=== PATIENT | female | born 1955 | race Caucasian/White ===

== ENCOUNTER 2017-04-07 05:31 | Emergency (ER) | payer OTHER ==
[~2017-04-07] VITALS: Ht 160 cm; Wt 68.0 kg
[~2017-04-07 05:31] MED LIST: ANTIDEPRESSANTS; ANXIETY MEDS; AUGMENTIN 875875 MG PO; CHLORDIAZEPOXID10 MG PO; NOHOMEMEDICATIONS
[2017-04-07 05:58] LABS: HEMATOCRIT 40.2 % (37.0-47.0); HEMOGLOBIN 14.1 gm/dL (12.0-15.0); MANUAL DIFF YES; MCH 33.8 pg (26.0-34.0); MCV 96.4 fL (80.0-100.0); PLATELET COUNT 123 thou/uL (150-400); RBC 4.17 mil/uL (4.20-5.00); RDW 18.4 % (10.5-14.5)
[2017-04-07 06:03] LABS: ANION GAP 14 mmol/L (7-16); BUN 15 mg/dL (7-18); CALCIUM 8.9 mg/dL (8.5-10.1); CHLORIDE 100 mmol/L (98-107); CO2 26 mmol/L (21-32); CREATININE 0.8 mg/dL (0.6-1.0); GLUCOSE 92 mg/dL (74-106); POTASSIUM 4.4 mmol/L (3.5-5.1); SODIUM 140 mmol/L (136-145)
[2017-04-07 06:09] LABS: ALBUMIN 3.2 g/dL (3.4-5.0); ALKALINE PHOSPHATASE 139 U/L (46-116); DIRECT BILIRUBIN < 0.1 mg/dL (<0.1-0.3); SGOT 43 U/L (15-37); SGPT 18 U/L (30-65); TOTAL BILIRUBIN 0.3 mg/dL (<0.1-1.0); TOTAL PROTEIN 7.4 g/dL (6.4-8.2)
[2017-04-07 06:18] LABS: ABSOLUTE NEUTROPHILS 2.2 thou/uL (1.4-8.2); ANISOCYTOSIS 2+; ATYPICAL LYMPHS 6 %; TOTAL CELL COUNT 100
== END 2017-04-07 09:00 | disposition home or self-care (01) ==
LOC: ER 05:31
PROVIDERS: Emergency Medicine
DX: F10.120 Alcohol abuse with intoxication, uncomplicated (principal); F17.210 Nicotine dependence, cigarettes, uncomplicated

== ENCOUNTER 2017-10-16 16:51 | Inpatient (IN) | payer OTHER ==
[~2017-10-16] VITALS: Ht 160 cm; Wt 53.1 kg
--- NOTE | ~2017-10-16 | EKG ---
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
--- NOTE | ~2017-10-16 | O ---
[address] [address] OPERATIVE REPORT Name: MARIAN HEDRICK Room #: 359-P ADM IN M.R.#: [id number] Admission: 10/16/17 Attend Phys: Abdias Wilson MD Discharge: Date of : 55 Report #: [id number] THIS REPORT FOR: //name// CC: SAHARA physician/PCP Abdias Wilson DATE OF SERVICE: 10/17/2017 SERVICE: Orthopedics. FACILITY: [facility]. SURGEON: Dwight Cruz MD CRAFT SUPERINTENDENT: None. PREOPERATIVE DIAGNOSES: 1. Valgus impacted left femoral neck fracture. 2. Displaced left greater trochanteric avulsion fracture. POSTOPERATIVE DIAGNOSES: 1. Valgus impacted left femoral neck fracture. 2. Displaced left greater trochanteric avulsion fracture. PROCEDURE: 1. Closed reduction percutaneous pinning, left femoral neck fracture. 2. Open reduction internal fixation, left greater trochanteric avulsion fracture. COMPLICATIONS: None. DRAINS: None. SPECIMENS: None. ESTIMATED BLOOD LOSS: 50 mL. ANESTHESIA: General. FINDINGS: 1. Synthes 7.3 cannulated screw x 3 measuring 85 mm inferior screw and 80 mm screws proximally with a washer around the 85 mm screw. 2. The #5 FiberWire x 2 with cerclage sutures around the avulsion fracture tied around the washer. 3. Toe touch weightbearing for 6 weeks is postoperative plan. [address] [address] OPERATIVE REPORT Name: MARIAN HEDRICK Room #: 359-P [facility] IN .R.#: [id number] Admission: 10/16/17 Attend Phys: Abdias Wilson MD Discharge: Date of : 55 Report #: [id number] HISTORY AND INDICATIONS: The patient is a 62-year-old female who sustained a fall yesterday resulting in 2 fractures of her left proximal femur including valgus impacted femoral neck and the avulsion of the greater trochanter. A CT scan revealed both of these. She did have comminution with some displacement of the greater trochanter. We had discussion about optimal treatment methods. I recommended CRPP for the femoral neck fracture as the fracture alignment appeared to be best suited for this rather than arthroplasty. In addition, the greater trochanter was mildly displaced, I was worried about stability of the prosthesis within the acetabulum should she have a hemiarthroplasty. We had a discussion about surgical versus nonsurgical measures on the greater trochanter and I recommended initially nonsurgical measures; however, she does have a history of heavy alcoholism and had made suggestions on preoperative conversations more than once that she may not maintain compliance with her weightbearing restrictions and so I felt it was worth considering fixation of the greater trochanter, as well based on the intraoperative findings. Risks, benefits, alternatives and indications were discussed with her in detail. Risks include but not limited to pain, bleeding, infection, injury to nerves or blood vessels, persistent pain despite surgical intervention, failure of any repairs or reconstructions, malunion, nonunion, need for further surgery including revision to arthroplasty as well as complications related to anesthesia such as stroke, heart attack, pulmonary complications, thromboembolic disease and . Despite these risks, she wished to proceed. PROCEDURE IN DETAIL: After left leg was correctly identified as the operative extremity, the patient was taken to the operating room where general endotracheal anesthesia was induced without complication. She was transferred to the operating table. She was padded appropriately. Prophylactic antibiotics with 2 grams Ancef were administered appropriate time. She was placed in traction boots bilaterally and the left leg was then prepped and draped in standard sterile fashion after post-positioning x-rays were taken in multiple planes. Timeout procedure was performed. A 1 inch incision was made over the lateral aspect of the femur. Dissection was taken down to the lateral femoral cortex and then guide pins for 7.3 mm cannulated screws x 3 were then placed in a standard fashion with a good spread in a polyaxial orientation. The inferior neck screw was placed first followed by the more proximal screws with a triangular spread and multiple planes of x-ray were used to place these guide pins. The lateral cortex was then drilled and the inferior screw was placed first providing compression across the inferior aspect of the fracture. Then, the proximal 2 were placed as well. The guide pin was placed and was left in the inferior screw and I assessed the greater trochanter at this point. The trochanteric fragment did move partially with percutaneous manipulation and so I felt that with her history of alcoholism some additional stabilization was of benefit, so I made a 1-1/2 inch incision proximally over the fracture and [address] [address] OPERATIVE REPORT Name: MARIAN HEDRICK Room #: 359-P [facility] IN M.R.#: [id number] Admission: 10/16/17 Attend Phys: Abdias Wilson MD Discharge: Date of : 55 Report #: [id number] then dissected down to the abductor tendon, which was still intact with a good abductor soft tissue envelope on this fragment. Then, #5 FiberWire was passed around this fracture fragment x 2 providing a total of 4 strands with 2 cerclage stitches around the fragment and then it was pulled taut and the sutures were passed down distally adjacent to the distal wound and then the sutures were passed around the distal screw beneath the washer, which was around the washer. The screw had been backed up to allow mobilization of the washer and then the suture was passed around the washer and then the screw was advanced down providing good compression and then the sutures were tied upon themselves for good solid fixation to the screw. The suture was cut off. Final x-rays were taken on AP and lateral planes in good position of all hardware and then the wounds were copiously irrigated. The deep layer was closed with 0 Vicryl. The skin was closed with 2-0 Vicryl followed by paulette and sterile dressing was applied. The patient was awakened from anesthesia and taken to recovery room in stable condition. There were no complications and all counts were reported as correct. <ELECTRONICALLY SIGNED> By: Dwight Cruz MD 10/18/17 0649 1842 [id number] Dwight Cruz MD /nt
[2017-10-16 16:52] VITALS: BP 120/79
[2017-10-16] MEDS ORDERED: CLONAZEPAM 0.50.5 M1 PO (17:15)
[2017-10-16 18:24] LABS: ABSOLUTE NEUTROPHILS 2.9 thou/uL (1.4-8.2); BASOPHILS 0.5 % (0.0-2.0); EOSINOPHILS 3.7 % (0.0-3.0); HEMATOCRIT 37.6 % (37.0-47.0); HEMOGLOBIN 12.8 gm/dL (12.0-15.0); LYMPHOCYTES 31.3 % (24.0-44.0); MCH 34.5 pg (26.0-34.0); MCV 101.5 fL (80.0-100.0); MONOCYTES 6.3 % (1.0-8.0); PLATELET COUNT 287 thou/uL (150-400); POLYS 58.2 % (36.0-66.0); RBC 3.71 mil/uL (4.20-5.00); RDW 17.4 % (10.5-14.5)
[2017-10-16 18:29] LABS: CALCIUM 9.1 mg/dL (8.5-10.1); CREATININE 0.7 mg/dL (0.6-1.0); POTASSIUM 3.9 mmol/L (3.5-5.1)
[2017-10-16 18:36] LABS: APTT 30.9 Seconds (24.5-32.8); PROTIME 10.1 Seconds (9.3-11.4)
[2017-10-16] MEDS ORDERED: NORVASC5 MG PO (18:39)
[2017-10-16] MEDS ORDERED: COLACE100 MG PO (18:40)
[2017-10-16] MEDS ORDERED: ASPIRIN325 PO (18:40)
[2017-10-16] MEDS ORDERED: CENTRUM SILVER1 EAC4 PO (18:40)
[2017-10-16] MEDS ORDERED: VITAMIN B-1100 M1 PO (18:41)
[2017-10-16 19:12] VITALS: BP 115/76
[2017-10-16 19:53] VITALS: BP 137/86
[2017-10-17] VITALS (14 sets, daily range): BP systolic 102–147; BP diastolic 55–99
[2017-10-17 06:01] LABS: URINE BILIRUBIN NEGATIVE (Negative); URINE BLOOD NEGATIVE (Negative); URINE CLARITY CLEAR; URINE COLOR YELLOW; URINE GLUCOSE-RANDOM* NEGATIVE (Negative); URINE KETONES NEGATIVE (Negative); URINE LEUKOCYTES 2+ (Negative); URINE NITRITE NEGATIVE (Negative); URINE PROTEIN (DIPSTICK) NEGATIVE (Negative); URINE UROBILINOGEN 0.2 E.U./dl (0.2-1.0)
[2017-10-17 06:02] LABS: HEMATOCRIT 34.5 % (37.0-47.0); HEMOGLOBIN 11.7 gm/dL (12.0-15.0); MCH 34.4 pg (26.0-34.0); RBC 3.42 mil/uL (4.20-5.00); RDW 17.8 % (10.5-14.5); WBC 5.2 thou/uL (4.0-11.0)
[2017-10-17 06:09] LABS: AMP/METHAMP Negative (Negative); BARBITURATES Negative (Negative); BENZODIAZEPINES POSITIVE (Negative); COCAINE Negative (Negative); METHADONE Negative (Negative); OPIATES POSITIVE (Negative); PCP Negative (Negative)
[2017-10-17 06:18] LABS: SQUAMOUS >10 Many /LPF (0-3)
[2017-10-17 06:19] LABS: CASTS None Seen /LPF (None Seen); CRYSTALS None Seen /LPF (None Seen); URINE RBC 3-10 Few /HPF (0-2); URINE WBC >25 Many /HPF (0-5)
[2017-10-17 06:26] LABS: CALCIUM 8.5 mg/dL (8.5-10.1); CREATININE 0.8 mg/dL (0.6-1.0); MAGNESIUM 1.7 mg/dL (1.8-2.4); PHOSPHORUS 3.7 mg/dL (2.5-4.9); POTASSIUM 3.9 mmol/L (3.5-5.1)
[2017-10-18] VITALS (8 sets, daily range): BP systolic 105–170; BP diastolic 67–104
[2017-10-18 06:43] LABS: BASOPHILS 0.2 % (0.0-2.0); EOSINOPHILS 2.2 % (0.0-3.0); HEMATOCRIT 34.4 % (37.0-47.0); HEMOGLOBIN 11.5 gm/dL (12.0-15.0); MCH 34.3 pg (26.0-34.0); MCHC 33.5 g/dL (28.0-37.0); MCV 102.5 fL (80.0-100.0); MONOCYTES 4.5 % (1.0-8.0); PLATELET COUNT 203 thou/uL (150-400); POLYS 82.1 % (36.0-66.0); RBC 3.36 mil/uL (4.20-5.00); RDW 17.3 % (10.5-14.5); WBC 8.6 thou/uL (4.0-11.0)
[2017-10-18 06:53] LABS: CALCIUM 8.8 mg/dL (8.5-10.1); CREATININE 0.8 mg/dL (0.6-1.0); POTASSIUM 3.4 mmol/L (3.5-5.1)
[2017-10-19] VITALS (7 sets, daily range): BP systolic 109–140; BP diastolic 68–89
[2017-10-20 03:30] VITALS: BP 143/89
[2017-10-20 08:15] VITALS: BP 143/89
[2017-10-20 12:15] VITALS: BP 134/86
[2017-10-20 18:25] VITALS: BP 124/84
[2017-10-20 20:00] VITALS: BP 113/76
[2017-10-20 20:23] VITALS: BP 113/76
[2017-10-21 03:26] VITALS: BP 101/70
[2017-10-21 08:00] VITALS: BP 105/72
[2017-10-21 08:08] VITALS: BP 118/71
[2017-10-21] MEDS ORDERED: CHLORDIAZEPOXIDE5 M2 PO (10:28)
[2017-10-21] MEDS ORDERED: PERCOCET PO (10:28)
[2017-10-21] MEDS ORDERED: ENOXAPARIN40 MG/0.1 SUBQ (10:28)
[2017-10-21] MEDS ORDERED: GABAPENTIN 100100 MG PO (10:28)
[2017-10-21] MEDS ORDERED: PEPCID20 MG PO (10:28)
[2017-10-21 11:49] VITALS: BP 105/72
[2017-10-21 15:46] VITALS: BP 116/74
[2017-10-21 19:45] VITALS: BP 109/77
[2017-10-22 04:04] VITALS: BP 122/82
[2017-10-22 08:09] VITALS: BP 119/94
[2017-10-22 12:06] VITALS: BP 103/74
[2017-10-22 17:04] VITALS: BP 95/63
[2017-10-22 22:09] VITALS: BP 81/46
[2017-10-23 00:17] VITALS: BP 104/72
[2017-10-23 04:13] VITALS: BP 104/74
[2017-10-23 07:15] VITALS: BP 112/71
[2017-10-23 12:06] VITALS: BP 100/71
[2017-10-23 15:57] VITALS: BP 99/66
[2017-10-23 19:21] VITALS: BP 99/59
[2017-10-24 05:11] VITALS: BP 111/64
[2017-10-24 08:00] VITALS: BP 96/65
[2017-10-24] MEDS ORDERED: ASPIRIN325 PO (09:56)
[2017-10-24] MEDS ORDERED: HYDROCODONE-AP1 EAC6 PO (09:56)
[2017-10-24] MEDS ORDERED: VITAMIN B-1100 M1 PO (09:56)
[2017-10-24] MEDS ORDERED: CENTRUM SILVER1 EAC4 PO (09:56)
[2017-10-24] MEDS ORDERED: CHLORDIAZEPOXIDE5 M2 PO (09:56)
[2017-10-24] MEDS ORDERED: NORVASC5 MG PO (09:56)
[2017-10-24 10:52] VITALS: BP 96/65
[2018-03-27] MEDS ORDERED: HYDROCODON-ACE1 EAC7 PO (09:08)
[2018-04-12] MEDS ORDERED: ATIVAN1 MG PO (09:57)
== END 2017-10-24 14:31 | disposition home health service (06) | DRG 480 ==
LOC: ER 16:51 → EROBS 18:07 → 3W 18:07 → ENTRNSPT 10-24 13:23 → EDTRNSPTSTS 10-24 13:28 → 3W 10-24 14:31
PROVIDERS: Emergency Medicine; Hospitalist
PROC: 0QS734Z Reposition Left Upper Femur with Internal Fixation Device, Percutaneous Approach (ICD-10-PCS; principal; 2017-10-17)
PROC: 0QS704Z Reposition Left Upper Femur with Internal Fixation Device, Open Approach (ICD-10-PCS; principal; 2017-10-17)
DX: S72.92XA Unspecified fracture of left femur, initial encounter for closed fracture (principal); G93.40 Encephalopathy, unspecified; F10.239 Alcohol dependence with withdrawal, unspecified; S72.112A Displaced fracture of greater trochanter of left femur, initial encounter for closed fracture; F17.210 Nicotine dependence, cigarettes, uncomplicated; I10 Essential (primary) hypertension; F32.9 Major depressive disorder, single episode, unspecified; F41.9 Anxiety disorder, unspecified; F10.229 Alcohol dependence with intoxication, unspecified; Z60.2 Problems related to living alone; R41.0 Disorientation, unspecified; M19.90 Unspecified osteoarthritis, unspecified site; W18.39XA Other fall on same level, initial encounter; Y93.89 Activity, other specified; Y92.89 Other specified places as the place of occurrence of the external cause; Y99.8 Other external cause status; Z79.82 Long term (current) use of aspirin; Z79.899 Other long term (current) drug therapy
CPT/HCPCS: 10879; 50010; 50101; 50386; 51412; 51538; 53400; 53404; 56524; 56531; 57092; 62110; 62900; 70005

== ENCOUNTER 2017-11-14 09:52 | Inpatient (IN) | payer OTHER ==
[~2017-11-14] VITALS: Ht 160 cm; Wt 59.0 kg
--- NOTE | ~2017-11-14 | HC ---
[facility] [place] [address] CONSULTATION Name: DONTAE HEDRICK Room #: 404-P ADM IN M.R.#: [id number] Admission: 11/14/17 Attend Phys: Abdias Wilson MD Discharge: Date of : 55 Report #: [id number] THIS REPORT FOR: //name// CC: FAM unknown Abdias Wilson DATE OF SERVICE: 11/15/2017 HISTORY OF PRESENT ILLNESS: The patient is a 62-year-old white female with history of hypertension, anxiety, depression, alcohol abuse with history of withdrawal, who was recently hospitalized at [facility] after a fall with a left hip impacted femoral neck fracture as well as a left displaced greater trochanteric avulsion fracture. She underwent closed reduction with pin placement of the left femoral neck fracture as well as ORIF of the left greater trochanteric fracture by Dr. Cruz on 10/17/2017. She was limited to toe touch weightbearing. She was eventually discharged to home as she did quite well with her postop therapy, ambulating 90 feet with the front wheeled walker, standby assistance to toe touch weightbearing. She was doing reasonably well at home when she had a fall landing on her buttocks. She was first seen at [facility] ER with x-rays apparently negative. She then came to [facility]. There is a question of a possible S2 fracture. Orthopedics has been consulted. We are seeing her in rehabilitation medicine consultation. PAST MEDICAL HISTORY: Includes the above noted history of alcohol abuse, hypertension, depression, anxiety. She has had alcohol withdrawal with prior hospitalization, severe osteoarthritis of her hips. ALLERGIES: No known drug allergies. HABITS: One pack per day, current every day smoker, alcohol abuse as noted above. SOCIAL HISTORY: Lives in a house alone, was modified independent with a front-wheeled walker, 2 steps in. REVIEW OF SYSTEMS: Did not offer any current complaints of chest pain, shortness of breath or abdominal discomfort. She is rather sleepy this morning. Notes considerable pain with movement of the lower extremities. PHYSICAL EXAMINATION: GENERAL: A 62-year-old white female in no obvious distress. VITAL SIGNS: Last recorded temperature 98.4, pulse 92, respirations 18, blood pressure 152/82. The patient is sleepy, but does arouse. HEENT: Facies appeared symmetric. EXTREMITIES: Functional range of motion of the upper extremities without [facility] [address] [place] [address] CONSULTATION Name: DONTAE HEDRICK Room #: 404-P [facility] IN .R.#: [id number] Admission: 11/14/17 Attend Phys: Abdias Wilson MD Discharge: Date of : 55 Report #: [id number] obvious focal weakness. In her lower extremities, she did not want me to move her lower extremity secondary to pain. I was able to have her do some gentle knee flexion, extension and ankle dorsiflexion and plantar flexion. Her strength appears to be at least antigravity. There is no calf swelling. Functionally, she did get up with therapy, was mod assist sit to stand. Gait was 1 foot with a front-wheeled walker. She had a lot of pain. Apparently was yelling out in discomfort. IMPRESSION: A 62-year-old white female with the following problems: 1. Fall with increased buttock lower extremity pain. X-rays have been negative including CT of the pelvis. There is, however, a possible nondisplaced [address] fracture noted on CT of the lumbosacral spine. Orthopedics is to evaluate. 2. Recent left impacted femoral neck fracture and displaced greater trochanteric avulsion fracture status post orthopedic surgical repair on 10/17/2017. Continues to toe touch weightbearing at this time. 3. History of ETOH abuse/withdrawal in the past. 4. Hypertension. 5. Anxiety. 6. Depression. PLAN: Orthopedics to evaluate. Insurance will need to be checked regarding rehab therapy options within her insurance coverage. We will be glad to facilitate with this. By: [id number] Sanjay Toth MD /MELVIN
--- NOTE | ~2017-11-14 | EKG ---
[address] [place] [address] ELECTROCARDIOGRAM REPORT Name: DONTAE HEDRICK Room #: 170-8 ADM IN M.R.#: [id number] Admission: 11/14/17 Attend Phys: Abdias Wilson MD Discharge: Date of : 55 Report #: [id number] THIS REPORT FOR: //name// [facility] ED Test Date: 2017-11-14 Test Time: 11:59:04 Pat Name: DONTAE HEDRICK Department: Room: 170 Gender: F Faculty Research Physician: GODWIN : 1955 Requested By: Amber Marsh Order Number: [id number] MD: Ahmet Toribio Measurements Intervals [place] Rate: 83 P: 83 [place]: 147 QRS: 79 QRSD: 85 T: 73 QT: 388 QTc: 456 Interpretive Statements Sinus rhythm Consider left atrial enlargement Compared to ECG 10/16/2017 17:36:10 No significant changes Electronically Signed On 11-14-2017 17:12:38 CDT by Ahmet Toribio [email or web address] <ELECTRONICALLY SIGNED> By: Ahmet Toribio MD 11/14/17 1712 1159 1159 Ahmet Toribio MD /NICOLE
[~2017-11-14 09:52] MED LIST changes: +ASPIRIN325 PO; +CENTRUM SILVER1 EAC4 PO; +CHLORDIAZEPOXIDE5 M2 PO; +CLONAZEPAM 0.50.5 M1 PO; +COLACE100 MG PO; +ENOXAPARIN40 MG/0.1 SUBQ; +GABAPENTIN 100100 MG PO; +HYDROCODONE-AP1 EAC6 PO; +NORVASC5 MG PO; +PEPCID20 MG PO; +PERCOCET PO; +VITAMIN B-1100 M1 PO
[2017-11-14 09:54] VITALS: BP 132/78
[2017-11-14 10:48] LABS: ABSOLUTE NEUTROPHILS 5.1 thou/uL (1.4-8.2); BASOPHILS 0.7 % (0.0-2.0); EOSINOPHILS 1.4 % (0.0-3.0); HEMATOCRIT 36.8 % (37.0-47.0); HEMOGLOBIN 12.7 gm/dL (12.0-15.0); LYMPHOCYTES 17.9 % (24.0-44.0); MCH 33.3 pg (26.0-34.0); MCHC 34.5 g/dL (28.0-37.0); MCV 96.8 fL (80.0-100.0); MONOCYTES 11.6 % (1.0-8.0); PLATELET COUNT 224 thou/uL (150-400); POLYS 68.4 % (36.0-66.0); RBC 3.81 mil/uL (4.20-5.00); RDW 16.9 % (10.5-14.5); WBC 7.4 thou/uL (4.0-11.0)
[2017-11-14] MEDS ORDERED: CLONAZEPAM 0.50.5 M1 PO (10:49)
[2017-11-14 10:56] LABS: CALCIUM 9.1 mg/dL (8.5-10.1); CREATININE 0.9 mg/dL (0.6-1.0); POTASSIUM 3.7 mmol/L (3.5-5.1)
[2017-11-14 11:03] LABS: ALBUMIN 3.2 g/dL (3.4-5.0); TOTAL BILIRUBIN 0.6 mg/dL (<0.1-1.0); TOTAL PROTEIN 7.2 g/dL (6.4-8.2)
[2017-11-14 14:22] LABS: URINE BILIRUBIN NEGATIVE (Negative); URINE BLOOD NEGATIVE (Negative); URINE CLARITY CLEAR; URINE COLOR YELLOW; URINE GLUCOSE-RANDOM* NEGATIVE (Negative); URINE KETONES NEGATIVE (Negative); URINE LEUKOCYTES 3+ (Negative); URINE NITRITE POSITIVE (Negative); URINE PROTEIN (DIPSTICK) NEGATIVE (Negative); URINE UROBILINOGEN 0.2 E.U./dl (0.2-1.0)
[2017-11-14 14:27] VITALS: BP 121/77
[2017-11-14 14:31] LABS: SQUAMOUS 0-3 Few /LPF (0-3)
[2017-11-14 14:33] LABS: CASTS None Seen /LPF (None Seen); CRYSTALS None Seen /LPF (None Seen); URINE RBC 0-2 Rare /HPF (0-2)
[2017-11-14 18:33] VITALS: BP 109/72
[2017-11-14 19:16] VITALS: BP 109/72
[2017-11-14 20:00] VITALS: BP 131/96
[2017-11-15 04:00] VITALS: BP 131/55
[2017-11-15 06:35] LABS: HEMATOCRIT 37.6 % (37.0-47.0); HEMOGLOBIN 12.6 gm/dL (12.0-15.0); MCH 32.9 pg (26.0-34.0); MCHC 33.6 g/dL (28.0-37.0); MCV 98.1 fL (80.0-100.0); RBC 3.84 mil/uL (4.20-5.00); WBC 6.2 thou/uL (4.0-11.0)
[2017-11-15 06:44] LABS: CREATININE 0.8 mg/dL (0.6-1.0); POTASSIUM 3.7 mmol/L (3.5-5.1)
[2017-11-15 08:15] VITALS: BP 152/82
[2017-11-15 15:34] VITALS: BP 151/112
[2017-11-15 20:00] VITALS: BP 154/96
[2017-11-15 21:01] VITALS: BP 154/96
[2017-11-16 05:44] VITALS: BP 138/100
[2017-11-16 06:20] LABS: ABSOLUTE NEUTROPHILS 2.9 thou/uL (1.4-8.2); BASOPHILS 0.4 % (0.0-2.0); EOSINOPHILS 8.7 % (0.0-3.0); HEMATOCRIT 39.5 % (37.0-47.0); HEMOGLOBIN 12.9 gm/dL (12.0-15.0); LYMPHOCYTES 23.9 % (24.0-44.0); MCH 33.4 pg (26.0-34.0); MCHC 32.7 g/dL (28.0-37.0); MCV 102.1 fL (80.0-100.0); MONOCYTES 11.8 % (1.0-8.0); PLATELET COUNT 189 thou/uL (150-400); POLYS 55.2 % (36.0-66.0); RBC 3.87 mil/uL (4.20-5.00); WBC 5.3 thou/uL (4.0-11.0)
[2017-11-16 06:30] LABS: CALCIUM 9.4 mg/dL (8.5-10.1); CREATININE 0.7 mg/dL (0.6-1.0); POTASSIUM 3.5 mmol/L (3.5-5.1)
[2017-11-16 09:52] VITALS: BP 113/85
[2017-11-16 13:00] VITALS: BP 113/85
[2017-11-16 17:03] VITALS: BP 115/70
[2017-11-16 19:55] VITALS: BP 147/90
[2017-11-17 04:21] VITALS: BP 139/91
[2017-11-17 08:08] VITALS: BP 146/92
[2017-11-17] MEDS ORDERED: HYDROCODON-ACE1 EAC7 PO (17:07)
[2017-11-17] MEDS ORDERED: CHLORDIAZEPOXIDE5 M2 PO (17:07)
[2017-11-17] MEDS ORDERED: KEFLEX500 M1 PO (17:16)
== END 2017-11-17 17:40 | DRG 536 ==
LOC: ER 09:52 → EROBS 12:29 → 4N 12:29
PROVIDERS: Hospitalist; Physician Assistant
DX: S72.002A Fracture of unspecified part of neck of left femur, initial encounter for closed fracture (principal); S73.005A Unspecified dislocation of left hip, initial encounter; N39.0 Urinary tract infection, site not specified; F10.239 Alcohol dependence with withdrawal, unspecified; F32.9 Major depressive disorder, single episode, unspecified; F41.9 Anxiety disorder, unspecified; F17.210 Nicotine dependence, cigarettes, uncomplicated; W18.39XA Other fall on same level, initial encounter; Y93.89 Activity, other specified; F10.229 Alcohol dependence with intoxication, unspecified; R62.7 Adult failure to thrive; Y92.89 Other specified places as the place of occurrence of the external cause; Y99.8 Other external cause status; Z79.82 Long term (current) use of aspirin; Z79.899 Other long term (current) drug therapy
CPT/HCPCS: 10091

== ENCOUNTER 2018-01-31 14:06 | Emergency (ER) | payer OTHER ==
[~2018-01-31] VITALS: Ht 160 cm; Wt 63.5 kg
[~2018-01-31 14:06] MED LIST changes: +HYDROCODON-ACE1 EAC7 PO; +KEFLEX500 M1 PO
== END 2018-01-31 18:03 | disposition home or self-care (01) ==
LOC: ER 14:06
DX: F10.129 Alcohol abuse with intoxication, unspecified (principal); I10 Essential (primary) hypertension; F32.9 Major depressive disorder, single episode, unspecified; F41.9 Anxiety disorder, unspecified; F17.210 Nicotine dependence, cigarettes, uncomplicated

== ENCOUNTER 2018-02-06 08:04 | Emergency (ER) | payer OTHER ==
[~2018-02-06] VITALS: Ht 160 cm; Wt 59.0 kg
[2018-02-06 08:21] LABS: ABSOLUTE NEUTROPHILS 4.3 thou/uL (1.4-8.2); BASOPHILS 0.9 % (0.0-2.0); EOSINOPHILS 5.3 % (0.0-3.0); HEMATOCRIT 40.2 % (37.0-47.0); HEMOGLOBIN 14.2 gm/dL (12.0-15.0); LYMPHOCYTES 27.9 % (24.0-44.0); MCH 31.6 pg (26.0-34.0); MCHC 35.3 g/dL (28.0-37.0); MCV 89.6 fL (80.0-100.0); MONOCYTES 7.4 % (1.0-8.0); PLATELET COUNT 165 thou/uL (150-400); POLYS 58.5 % (36.0-66.0); RBC 4.49 mil/uL (4.20-5.00); RDW 13.1 % (10.5-14.5); WBC 7.4 thou/uL (4.0-11.0)
[2018-02-06 08:25] LABS: CALCIUM 9.1 mg/dL (8.5-10.1); CREATININE 0.9 mg/dL (0.6-1.0); POTASSIUM 3.8 mmol/L (3.5-5.1)
[2018-02-06 08:31] LABS: ALBUMIN 3.8 g/dL (3.4-5.0); DIRECT BILIRUBIN 0.1 mg/dL (<0.1-0.3); TOTAL BILIRUBIN 0.8 mg/dL (<0.1-1.0); TOTAL PROTEIN 7.1 g/dL (6.4-8.2)
[2018-02-06] MEDS ORDERED: CHLORDIAZEPOXID10 MG PO (08:57)
[2018-02-06] MEDS ORDERED: ZOFRAN ODT4 MG PO (08:57)
== END 2018-02-06 20:29 | disposition home or self-care (01) ==
LOC: ER 08:04
PROVIDERS: Emergency Medicine
DX: F10.239 Alcohol dependence with withdrawal, unspecified (principal); I10 Essential (primary) hypertension; F32.9 Major depressive disorder, single episode, unspecified; F41.9 Anxiety disorder, unspecified; M19.90 Unspecified osteoarthritis, unspecified site; F17.210 Nicotine dependence, cigarettes, uncomplicated

== ENCOUNTER 2018-02-10 10:59 | Emergency (ER) | payer OTHER ==
[~2018-02-10] VITALS: Ht 160 cm; Wt 59.0 kg
--- NOTE | ~2018-02-10 | EKG ---
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
[~2018-02-10 10:59] MED LIST changes: +ZOFRAN ODT4 MG PO
[2018-02-10 11:21] LABS: ABSOLUTE NEUTROPHILS 3.7 thou/uL (1.4-8.2); ANION GAP 8 mmol/L (7-16); BASOPHILS 0.5 % (0.0-2.0); BUN 8 mg/dL (7-18); CALCIUM 8.8 mg/dL (8.5-10.1); CHLORIDE 100 mmol/L (98-107); CO2 28 mmol/L (21-32); CREATININE 0.9 mg/dL (0.6-1.0); EOSINOPHILS 4.2 % (0.0-3.0); GLUCOSE 90 mg/dL (74-106); HEMATOCRIT 40.8 % (37.0-47.0); HEMOGLOBIN 14.1 gm/dL (12.0-15.0); LYMPHOCYTES 21.3 % (24.0-44.0); MCH 33.8 pg (26.0-34.0); MCHC 34.5 g/dL (28.0-37.0); PLATELET COUNT 250 thou/uL (150-400); POTASSIUM 3.4 mmol/L (3.5-5.1); RBC 4.16 mil/uL (4.20-5.00); RDW 19.9 % (10.5-14.5); SODIUM 136 mmol/L (136-145); WBC 5.6 thou/uL (4.0-11.0)
[2018-02-10 11:29] LABS: ALBUMIN 3.1 g/dL (3.4-5.0); LIPASE 204 U/L (73-393); SGOT 36 U/L (15-37); SGPT 31 U/L (30-65); TOTAL BILIRUBIN 0.2 mg/dL (<0.1-1.0); TOTAL PROTEIN 7.3 g/dL (6.4-8.2); TROPONIN-I <0.06 ng/mL (<0.06)
[2018-02-10] MEDS ORDERED: LOPERAMIDE 2 MG2 M1 PO (14:06)
== END 2018-02-10 16:00 | disposition home or self-care (01) ==
LOC: ER 10:59
PROVIDERS: Physician Assistant
DX: F10.129 Alcohol abuse with intoxication, unspecified (principal); R19.7 Diarrhea, unspecified; I10 Essential (primary) hypertension; F32.9 Major depressive disorder, single episode, unspecified; F41.9 Anxiety disorder, unspecified; F17.210 Nicotine dependence, cigarettes, uncomplicated; Y90.0 Blood alcohol level of less than 20 mg/100 ml

== ENCOUNTER 2018-03-18 08:14 | Inpatient (IN) | payer OTHER ==
[~2018-03-18] VITALS: Ht 160 cm; Wt 53.1 kg
--- NOTE | ~2018-03-18 | EKG ---
[address] [employer] [place] [address] ELECTROCARDIOGRAM REPORT Name: MARIAN HEDRICK Room #: 201-P ADM IN M.R.#: [id number] Admission: 03/18/18 Attend Phys: Silverio Mccray MD Discharge: Date of : 55 Report #: [id number] THIS REPORT FOR: //name// [facility] ED Test Date: 2018-03-18 Test Time: 09:02:50 Pat Name: MARIAN HEDRICK Department: Room: [facility] Gender: F Bias Binding Folder: JEANNETTE : 1955 Requested By: Geovanni Horta Order Number: [id number] MD: Syd Hester Measurements Intervals [place] Rate: 90 P: 72 [place]: 127 QRS: 75 QRSD: 89 T: 67 QT: 405 QTc: 496 Interpretive Statements Sinus rhythm Borderline prolonged QT interval Compared to ECG 02/10/2018 11:20:32 No significant changes Electronically Signed On 03-19-2018 15:28:32 CDT by Syd Hester [email or web address] <ELECTRONICALLY SIGNED> By: Syd Hester MD, [facility] 03/19/18 1528 1 1 Syd Hester MD, [facility] /EPI
--- NOTE | ~2018-03-18 | HC ---
[facility] [place] [address] CONSULTATION Name: MARIAN HEDRICK Room #: 201-P ADM IN M.R.#: [id number] Admission: 03/18/18 Attend Phys: Silverio Mccray MD Discharge: Date of : 55 Report #: [id number] THIS REPORT FOR: //name// CC: FAM unknown Silverio Mccray DATE OF SERVICE: 03/19/2018 REASON FOR CONSULTATION: Depression, alcohol use disorder. HISTORY OF PRESENT ILLNESS: This is a lady who has relapsed alcohol some months ago, possibly longer. After several days in a row of heavy drinking, she called 911 because she wanted to be detoxed. Admittedly, she is somewhat homebound, but her caregivers have been bringing her alcohol. The patient has acknowledged some increase in depression too. She denies active suicidality. PAST PSYCHIATRIC HISTORY: She has seen psychiatrists in the past. She does not recall being on medications for alcohol craving. She has been at [facility] before, but does not want to return there. She notes that she has physical limitations that probably preclude a residential sort of treatment. Not on any antidepressants or seen a psychiatrist lately. She has been drinking up to a pint a day. ALLERGIES: No known medication allergies. PAST MEDICAL HISTORY: Includes hip pain, history of sacral fracture, tachycardia, urinary tract infection. SOCIAL HISTORY: She lives alone, but she has help and supportive caregivers for getting in to appointments, transportation and such. She is looking to perhaps get another caregiver to further aid and help with her functioning. COGNITIVE EXAMINATION: She is alert and oriented to person, place, situation, and time. No significant deficits of short-term, long-term, intermediate memory as evidenced by her ability to recall elements of the past medical, psychiatric and social history. MENTAL STATUS EXAMINATION: female, depressed mood, restricted affect. Normal rate and rhythm of speech. She is articulate. No suicidal ideation, no homicidal ideation. No hallucinations, no delusions. Insight and judgment fair. DIAGNOSES: Alcohol use disorder, depressive disorder, not otherwise specified. RECOMMENDATIONS: The patient does appear to be progressing through detoxification at this time, we will continue with the current detox protocol [facility] [address] [place] [address] CONSULTATION Name: MARIAN HEDRICK Room #: 201-P ADM IN M.R.#: [id number] Admission: 03/18/18 Attend Phys: Silverio Mccray MD Discharge: Date of : 55 Report #: [id number] that includes lorazepam. In the coming days, can consider addition of an antidepressant as well as a medication for alcohol craving just as naltrexone. It does not appear that she is on narcotics at home at this time, though they have been ordered in the past, so we would need to check on this before starting naltrexone. Otherwise, she may be a Campral candidate. She has adequate renal function. Because of her physical limitations, she would not be appropriate for a residential alcohol rehabilitation program or perhaps she can have some sort of outpatient program. By: [id number] Andrew Wang MD /nt
[~2018-03-18 08:14] MED LIST changes: +LOPERAMIDE 2 MG2 M1 PO
[2018-03-18 08:16] VITALS: BP 143/104
[2018-03-18 09:34] LABS: HEMATOCRIT 36.7 % (37.0-47.0); HEMOGLOBIN 12.6 gm/dL (12.0-15.0); MCH 32.9 pg (26.0-34.0); MCHC 34.4 g/dL (28.0-37.0); MCV 95.8 fL (80.0-100.0); RBC 3.83 mil/uL (4.20-5.00); RDW 17.8 % (10.5-14.5); WBC 7.9 thou/uL (4.0-11.0)
[2018-03-18 09:49] LABS: ANION GAP 15 mmol/L (7-16); BUN 4 mg/dL (7-18); CALCIUM 8.5 mg/dL (8.5-10.1); CHLORIDE 105 mmol/L (98-107); CO2 21 mmol/L (21-32); CREATININE 0.7 mg/dL (0.6-1.0); GLUCOSE 96 mg/dL (74-106); SODIUM 141 mmol/L (136-145)
[2018-03-18 09:56] LABS: ALBUMIN 2.9 g/dL (3.4-5.0); SGOT 38 U/L (15-37); SGPT 27 U/L (30-65); TOTAL BILIRUBIN 0.3 mg/dL (<0.1-1.0); TOTAL PROTEIN 7.1 g/dL (6.4-8.2); TROPONIN-I <0.06 ng/mL (<0.06)
[2018-03-18 10:34] LABS: MAGNESIUM 1.5 mg/dL (1.8-2.4); PHOSPHORUS 3.2 mg/dL (2.5-4.9)
[2018-03-18 10:38] VITALS: BP 161/100
[2018-03-18 11:09] VITALS: BP 154/102
[2018-03-18 11:09] LABS: URINE BILIRUBIN NEGATIVE (Negative); URINE BLOOD NEGATIVE (Negative); URINE CLARITY CLEAR; URINE COLOR YELLOW; URINE GLUCOSE-RANDOM* NEGATIVE (Negative); URINE KETONES NEGATIVE (Negative); URINE NITRITE-REFLEX NEGATIVE (Negative); URINE PROTEIN (DIPSTICK) NEGATIVE (Negative); URINE UROBILINOGEN 0.2 E.U./dl (0.2-1.0)
[2018-03-18 11:17] LABS: AMP/METHAMP Negative (Negative); BARBITURATES Negative (Negative); BENZODIAZEPINES Negative (Negative); COCAINE Negative (Negative); METHADONE Negative (Negative); OPIATES Negative (Negative); PCP Negative (Negative); URINE LEUKOCYTES-REFLEX 1+ (Negative)
[2018-03-18 11:23] LABS: BACTERIA-REFLEX 1-9 Few /HPF (None Seen); CASTS None Seen /LPF (None Seen); CRYSTALS None Seen /LPF (None Seen); SQUAMOUS 0-3 Few /LPF (0-3); URINE RBC None Seen /HPF (0-2); URINE WBC-REFLEX 6-15 Few /HPF (0-5)
[2018-03-18 11:36] LABS: FOLIC ACID 12.4 ng/mL (8.6-58.9)
[2018-03-18 11:44] VITALS: BP 152/97
[2018-03-18 15:33] VITALS: BP 142/92
[2018-03-18 20:23] VITALS: BP 162/115
[2018-03-19 00:35] VITALS: BP 153/90
[2018-03-19 02:02] LABS: CALCIUM 7.9 mg/dL (8.5-10.1); CREATININE 0.7 mg/dL (0.6-1.0); MAGNESIUM 1.3 mg/dL (1.8-2.4)
[2018-03-19 02:05] LABS: POTASSIUM 2.9 mmol/L (3.5-5.1)
[2018-03-19 03:29] VITALS: BP 149/97
[2018-03-19 08:30] VITALS: BP 148/85
[2018-03-19 10:06] LABS: MAGNESIUM 1.4 mg/dL (1.8-2.4); POTASSIUM 3.4 mmol/L (3.5-5.1)
[2018-03-19 11:24] VITALS: BP 128/103
[2018-03-19 15:54] VITALS: BP 149/99
[2018-03-19 17:15] LABS: MAGNESIUM 1.6 mg/dL (1.8-2.4); POTASSIUM 3.8 mmol/L (3.5-5.1)
[2018-03-19 20:00] VITALS: BP 127/67
[2018-03-20] VITALS: BP 145/107
[2018-03-20 00:03] LABS: MAGNESIUM 1.5 mg/dL (1.8-2.4); POTASSIUM 3.5 mmol/L (3.5-5.1)
[2018-03-20 04:00] VITALS: BP 129/81
[2018-03-20 04:26] LABS: CALCIUM 8.4 mg/dL (8.5-10.1); CREATININE 0.6 mg/dL (0.6-1.0); MAGNESIUM 1.7 mg/dL (1.8-2.4); PHOSPHORUS 2.4 mg/dL (2.5-4.9); POTASSIUM 3.5 mmol/L (3.5-5.1)
[2018-03-20] MEDS ORDERED: ZOLOFT50 MG PO (06:30)
[2018-03-20] MEDS ORDERED: TRAZODONE HCL50 MG PO (06:31)
[2018-03-20] MEDS ORDERED: VITAMIN B-12500 MCG PO (06:32)
[2018-03-20] MEDS ORDERED: ASPIRIN325 PO (06:33)
[2018-03-20 07:32] VITALS: BP 143/93
[2018-03-20 11:26] VITALS: BP 118/82
[2018-03-20 15:40] VITALS: BP 155/105
[2018-03-20 19:35] VITALS: BP 148/94
[2018-03-21 04:45] VITALS: BP 145/97
[2018-03-21 07:18] VITALS: BP 133/94
[2018-03-21 11:14] VITALS: BP 132/97
[2018-03-21 15:08] VITALS: BP 132/97
[2018-03-21 15:24] VITALS: BP 132/97
[2018-03-21 15:48] VITALS: BP 132/97
== END 2018-03-21 16:39 | disposition home health service (06) | DRG 563 ==
LOC: ER 08:14 → 2N 10:25 → EROBS 10:25 → 2N 11:36 → ENTRNSPT 03-21 16:27 → 2N 03-21 16:39
PROVIDERS: Emergency Medicine; Hospitalist; Nurse Practitioner Family
DX: S93.402A Sprain of unspecified ligament of left ankle, initial encounter (principal); E46 Unspecified protein-calorie malnutrition; F32.9 Major depressive disorder, single episode, unspecified; I10 Essential (primary) hypertension; F41.9 Anxiety disorder, unspecified; F17.210 Nicotine dependence, cigarettes, uncomplicated; S93.602A Unspecified sprain of left foot, initial encounter; E87.6 Hypokalemia; F10.120 Alcohol abuse with intoxication, uncomplicated; S90.32XA Contusion of left foot, initial encounter; S80.212A Abrasion, left knee, initial encounter; M19.90 Unspecified osteoarthritis, unspecified site; W18.30XA Fall on same level, unspecified, initial encounter; E83.42 Hypomagnesemia; M62.84 Sarcopenia; R26.9 Unspecified abnormalities of gait and mobility; R29.6 Repeated falls; Z71.6 Tobacco abuse counseling; Z68.20 Body mass index [BMI] 20.0-20.9, adult; Y93.89 Activity, other specified; Y92.89 Other specified places as the place of occurrence of the external cause; Y99.8 Other external cause status; Z87.81 Personal history of (healed) traumatic fracture; Z79.82 Long term (current) use of aspirin; Z79.899 Other long term (current) drug therapy
CPT/HCPCS: 10081

== ENCOUNTER 2018-03-31 08:36 | Emergency (ER) | payer OTHER ==
[~2018-03-31] VITALS: Ht 157.5 cm; Wt 54.4 kg
[~2018-03-31 08:36] MED LIST changes: +TRAZODONE HCL50 MG PO; +VITAMIN B-12500 MCG PO; +ZOLOFT50 MG PO
[2018-03-31] MEDS ORDERED: ATIVAN1 MG PO (13:26)
== END 2018-03-31 13:30 | disposition home or self-care (01) ==
LOC: ER 08:36
DX: S93.692A Other sprain of left foot, initial encounter (principal); F10.129 Alcohol abuse with intoxication, unspecified; F17.210 Nicotine dependence, cigarettes, uncomplicated; F32.9 Major depressive disorder, single episode, unspecified; F41.9 Anxiety disorder, unspecified; G89.29 Other chronic pain; M54.6 Pain in thoracic spine; J44.9 Chronic obstructive pulmonary disease, unspecified; I10 Essential (primary) hypertension; W18.39XA Other fall on same level, initial encounter; Y92.89 Other specified places as the place of occurrence of the external cause; Y93.89 Activity, other specified; Y99.8 Other external cause status

== ENCOUNTER 2018-07-02 16:51 | Emergency (ER) | payer OTHER ==
[~2018-07-02] VITALS: Ht 160 cm; Wt 52.2 kg
[~2018-07-02 16:51] MED LIST changes: +ATIVAN1 MG PO
[2018-07-02 17:33] LABS: ABSOLUTE NEUTROPHILS 5.5 thou/uL (1.4-8.2); BASOPHILS 0.7 % (0.0-2.0); EOSINOPHILS 1.4 % (0.0-3.0); HEMATOCRIT 46.2 % (37.0-47.0); HEMOGLOBIN 15.7 gm/dL (12.0-15.0); LYMPHOCYTES 28.1 % (24.0-44.0); MCH 30.1 pg (26.0-34.0); MCV 88.5 fL (80.0-100.0); MONOCYTES 7.4 % (1.0-8.0); PLATELET COUNT 387 thou/uL (150-400); POLYS 62.4 % (36.0-66.0); RBC 5.22 mil/uL (4.20-5.00); RDW 17.9 % (10.5-14.5); WBC 8.8 thou/uL (4.0-11.0)
[2018-07-02 17:42] LABS: CALCIUM 9.5 mg/dL (8.5-10.1); CREATININE 0.8 mg/dL (0.6-1.0); POTASSIUM 4.1 mmol/L (3.5-5.1)
[2018-07-02 19:29] VITALS: BP 120/78
[2018-07-02] MEDS ORDERED: TRAMADOL 50 MG50 MG PO (20:05)
[2018-07-03] MEDS ORDERED: IBUPROFEN 600600 M1 PO (13:59)
== END 2018-07-02 22:52 | disposition home or self-care (01) ==
LOC: ER 16:51
PROVIDERS: Student in an Organized Health Care Education/Training Program
DX: S42.034A Nondisplaced fracture of lateral end of right clavicle, initial encounter for closed fracture (principal); M50.30 Other cervical disc degeneration, unspecified cervical region; F10.129 Alcohol abuse with intoxication, unspecified; F32.9 Major depressive disorder, single episode, unspecified; F41.9 Anxiety disorder, unspecified; G47.00 Insomnia, unspecified; J44.9 Chronic obstructive pulmonary disease, unspecified; I10 Essential (primary) hypertension; F17.210 Nicotine dependence, cigarettes, uncomplicated; Y90.0 Blood alcohol level of less than 20 mg/100 ml; W06.XXXA Fall from bed, initial encounter; Y92.89 Other specified places as the place of occurrence of the external cause; Y93.89 Activity, other specified; Y99.8 Other external cause status

== ENCOUNTER 2018-07-03 12:27 | Emergency (ER) | payer OTHER ==
[~2018-07-03] VITALS: Ht 160 cm; Wt 72.6 kg
[~2018-07-03 12:27] MED LIST changes: +TRAMADOL 50 MG50 MG PO
[2018-07-03] MEDS ORDERED: IBUPROFEN 600600 M1 PO (13:59)
[2018-07-03 14:33] VITALS: BP 176/100
== END 2018-07-03 14:33 | disposition home or self-care (01) ==
LOC: ER 12:27
DX: S22.32XA Fracture of one rib, left side, initial encounter for closed fracture (principal); F17.210 Nicotine dependence, cigarettes, uncomplicated; F32.9 Major depressive disorder, single episode, unspecified; F41.9 Anxiety disorder, unspecified; G47.00 Insomnia, unspecified; J44.9 Chronic obstructive pulmonary disease, unspecified; I10 Essential (primary) hypertension; W06.XXXA Fall from bed, initial encounter; Y92.89 Other specified places as the place of occurrence of the external cause; Y93.89 Activity, other specified; Y99.8 Other external cause status

== ENCOUNTER 2019-02-17 00:41 | Emergency (ER) | payer OTHER ==
[~2019-02-17] VITALS: Ht 160 cm; Wt 59.0 kg
[~2019-02-17 00:41] MED LIST changes: +IBUPROFEN 600600 M1 PO
[2019-02-17 01:50] LABS: ABSOLUTE NEUTROPHILS 5.4 thou/uL (1.4-8.2); BASOPHILS 0.3 % (0.0-2.0); EOSINOPHILS 0.2 % (0.0-3.0); HEMATOCRIT 36.5 % (37.0-47.0); HEMOGLOBIN 12.1 gm/dL (12.0-15.0); LYMPHOCYTES 7.2 % (24.0-44.0); MCHC 33.2 g/dL (28.0-37.0); MCV 78.3 fL (80.0-100.0); MONOCYTES 8.2 % (1.0-8.0); PLATELET COUNT 151 thou/uL (150-400); POLYS 84.1 % (36.0-66.0); RBC 4.65 mil/uL (4.20-5.00); RDW 20.5 % (10.5-14.5); WBC 6.4 thou/uL (4.0-11.0)
[2019-02-17 01:57] LABS: CALCIUM 8.5 mg/dL (8.5-10.1); CREATININE 0.8 mg/dL (0.6-1.0)
[2019-02-17 02:30] LABS: URINE BILIRUBIN 2+ (Negative); URINE BLOOD TRACE (Negative); URINE CLARITY CLOUDY; URINE COLOR BROWN; URINE GLUCOSE-RANDOM* NEGATIVE (Negative); URINE KETONES NEGATIVE (Negative); URINE PROTEIN (DIPSTICK) 2+ (Negative); URINE SPECIFIC GRAVITY <= 1.005 (1.005-1.035)
[2019-02-17 02:34] LABS: URINE LEUKOCYTES-REFLEX 3+ (Negative); URINE NITRITE-REFLEX POSITIVE (Negative)
[2019-02-17 02:43] LABS: BACTERIA-REFLEX >30 Many /HPF (None Seen); CRYSTALS None Seen /LPF (None Seen); HYALINE CASTS 0-3 Few /LPF (None Seen); MUCUS >6 Heavy strn/LPF (None Seen); SQUAMOUS None Seen /LPF (0-3); URINE RBC >20 Many /HPF (0-2); URINE WBC-REFLEX >25 Many /HPF (0-5)
[2019-02-17 02:44] LABS: YEAST-REFLEX Present (None Seen)
[2019-02-17] MEDS ORDERED: KEFLEX500 M1 PO (05:11)
[2019-02-17 05:39] VITALS: BP 117/81
== END 2019-02-17 05:55 | disposition home or self-care (01) ==
LOC: ER 00:41
PROVIDERS: Emergency Medicine
DX: N39.0 Urinary tract infection, site not specified (principal); F17.210 Nicotine dependence, cigarettes, uncomplicated; F32.9 Major depressive disorder, single episode, unspecified; F41.9 Anxiety disorder, unspecified; G47.00 Insomnia, unspecified; J44.9 Chronic obstructive pulmonary disease, unspecified; I10 Essential (primary) hypertension

== ENCOUNTER 2019-06-30 18:50 | Inpatient (IN) | payer OTHER ==
[~2019-06-30] VITALS: Ht 160 cm; Wt 46.3 kg
--- NOTE | 2019-06-30 18:04 | NUR ---
PT ARRIVED VIA EMS. PT UPSET ABOUT NO TV IN ROOM AND THAT SHE CAN'T WALK. PT ABLE TO WALK FROM STRETCHER TO BED WITH ASSIST. PT STATED THAT SHE ISN'T STAYING. PT STATED [facility] SAID IT WAS A NICE PLACE WITH TV AND BED TABLE AND PRIVATE ROOMS. OBTAINED A WALKER AND BSC FOR PATIENT AND WATER.
[2019-06-30 18:15] VITALS: BP 134/92
--- NOTE | 2019-06-30 18:15 | NUR ---
PT WALKING IN [facility] WITH WALKER AND WANTING TO TALK TO TOLD PT WAS NOT HERE AND WE ARE PAGING HIM AT THIS TIME. PT STATED SHE WANTED TO TAKE A CAB OR A TAXI TO GO HOME. PT STATED SHE HAS A WALLET AT HOME AND CAN PAY WHEN SHE GETS HOME.
[2019-06-30] MEDS ORDERED: TUDORZA PRESS400 MCG INH (19:35)
[2019-06-30] MEDS ORDERED: ASA81BEC PO (19:36)
[2019-06-30] MEDS ORDERED: PROAIR HFA8.5 GM INH (19:37)
[2019-06-30] MEDS ORDERED: SYMBICORT160 MCG/4. INH (19:37)
[2019-06-30] MEDS ORDERED: FLAX, FISH & B1 EACH PO (19:38)
[2019-06-30] MEDS ORDERED: VITAMIN D31000 UNIT PO (19:38)
[2019-06-30] MEDS ORDERED: PROZAC20 M1 PO (19:39)
[2019-06-30] MEDS ORDERED: NEURONTIN300 MG PO (19:40)
[2019-06-30] MEDS ORDERED: FOLIC ACID1 MG PO (19:40)
[2019-06-30] MEDS ORDERED: HYDROXYZINE HCL50 MG PO (19:41)
[2019-06-30] MEDS ORDERED: IBUPROFEN 800800 M1 PO (19:41)
[2019-06-30 19:42] VITALS: BP 136/75
[2019-06-30] MEDS ORDERED: COZAAR 25 MG TA25 M2 PO (19:42)
[2019-06-30] MEDS ORDERED: MAG-OXIDE400 MG PO (19:43)
[2019-06-30] MEDS ORDERED: MELATONIN1 MG PO (19:43)
[2019-06-30] MEDS ORDERED: REVIA 50 MG TAB50 M1 PO (19:44)
[2019-06-30] MEDS ORDERED: OMEPRAZOLE 20 M20 M1 PO (19:44)
[2019-06-30] MEDS ORDERED: VITAMIN B-6100 MG PO (19:45)
[2019-06-30] MEDS ORDERED: SELENIUM SULFI120 ML (19:46)
--- NOTE | 2019-07-01 01:24 | NUR ---
Care assumed of patient at 1915: Patient quite upset about admission when this nurse approached her at start of shift. Nursing assessment completed. Skin intact. Patient denies SI/HI/AH/VH. Denies pain or discomfort. Alert and oriented x4. Patient reports that she had some thoughts of SI but it was because she was drunk. Denies having any means to act on thoughts at home. MD notified. Orders obtained for medication. Patient was provided HS medication which included Atarax. Patient reports that this medication helps her anxiety. Patient was able to stand and ambulate about her room with FWW. Patient reports that she is worried about her puppy at home. Reminded her that she has a friend who is taking care of her dog while she is in the hospital. Patient did sign admission paperwork with no incident. Patient reminded that MD will be evaluating her in the AM. Patient did state that she does not like it here and will be going home tomorrow. Patient states she typically weighs 125-130#. Patient currently weighs 102.2#. Patient states that she has had poor appetite. Patient denies any recreational drug use however UDS was positive for benzodiazepines. Denies any use of benzo medications. Appears that patient is positive for UTI. Patient received IV dose of Rocephin while at . MD evaluating use of abx tx. Patient has been resting quietly in bed throughout the night with no incident.
[2019-07-01 09:02] VITALS: BP 120/50
[2019-07-01 12:25] VITALS: BP 120/89
--- NOTE | 2019-07-01 18:43 | NUR ---
ASSUMED CARE AT 0700 TODAY. SHE WAS PLEASANT AND COOPERATIVE WITH STAFF AND INTERACTING WITH OTHER PEERS. TOOK MEDS WITHOUT PROBLEMS NOTED. ATE ON THE UNIT AND ATTENDED GROUPS. NO NEW SI STATEMENTS GIVEN. DENIES KATHY AND FADIA.
[2019-07-01 20:15] VITALS: BP 108/55
--- NOTE | 2019-07-02 02:38 | NUR ---
Care assumed of patient at 1915: Patient sleeping in bed at start of shift. Patient agitated when nurse woke her to complete assessment. Patient easily aroused. Patient grumpy, fussy. Patient alert and oriented x4. When asked if she was having SI, patient bluntly stated "NO! I'm not drunk!". Denies HI/AH/VH. No s/s of delusional or paranoia behaviors. Denies pain or discomfort. Patient incontinent of bladder. Supervision provided to walk with patient to the bathroom and she was able to complete own radha care and clothing change. Patient declined HS snack and decided to go back to sleep. Nurse approached her approximately an hour later to provide HS medication. Patient irritable stating "I'm never going to get any sleep around here!". Patient did request PRN medication for anxiety. Patient provided Atarax PRN. No aggression observed. Patient has been resting quietly all shift except for the two times that she was woke up for nursing assessment and medication administration.
[2019-07-02 09:13] VITALS: BP 107/80
--- NOTE | 2019-07-02 09:34 | H ---
[facility] [place] [address] HISTORY AND PHYSICAL Name: MARIAN HEDRICK Room #: 526A-A ADM IN M.R.#: [id number] Admission: 06/30/19 Attend Phys: Jacinto Callejas DO Discharge: Date of : 55 Report #: [id number] THIS REPORT FOR: //name// CC: Jacinto Callejas Yanci Wyatt DATE OF SERVICE: 06/30/2019 INPATIENT PSYCHIATRIC EVALUATION ATTENDING PHYSICIAN: Jacinto Callejas DO HOG CONFINEMENT SYSTEM MANAGER: Silverio Mccray MD. REASON FOR ADMISSION: Depression, suicidal ideation, acute alcohol intoxication with the commitment for detox and sobriety planning. HISTORY OF PRESENT ILLNESS: This is a 64-year-old female, who was at the [facility] ER for a prolonged period of time. Apparently, she was brought to medical care. When she was called by her mainspring torque tester, she admitted she was drinking. The patient had called 911 on 06/24/2019. At that time, she was intoxicated, wanted assistance for wearing her eyeglasses. [facility] was contacted at the time and made follow up calls, more than 22. During the follow up call, the patient was intoxicated and made statement that she needs medical assistance. Per [facility], Elvia Sánchez reported the patient was intoxicated and was making statements, she endorsed several times she was suicidal and actively trying to kill herself via alcohol. Brother's report, the patient also had not been sleeping or eating well. The patient drinks 1 pint to one fifth of vodka on a daily basis. Per [facility] report, the patient has had multiple contacts within the past decade involving alcohol to check her welfare. Upon arrival in the ED, patient was belligerent and trying to strike nursing staff. The patient had an alcohol level of 232 and the UTI and was given Rocephin. Many hours later, a psychiatric liaison services evaluation was attempted. The patient stated she did not recall today's events and she was not suicidal and did not want to . The patient denies past history of seizures or DTs and reported a history of tremors, nausea, and vomiting after cessation. She has no other supports other than her caregivers. Her caregiver's name is Sharlene Centeno [phone] and stated that her caregiver discussed with her some mobility issues and some nails. She does not have daily care. Denied previous suicide attempts. Denied previous psychiatric admission, usually she was seen for medical issues. Psychiatric issues, could not remember her doctor's names. The patient denied past history of suicide attempt. Former client of [facility] over a year ago, which is close for her. Depression and anxiety in the past and has been on Prozac and Atarax. [address] [address] HISTORY AND PHYSICAL Name: MARIAN HEDRICK Room #: 526A-A ADM IN M.R.#: [id number] Admission: 06/30/19 Attend Phys: Jacinto Callejas, Discharge: Date of : 55 Report #: [id number] MEDICAL HISTORY: Includes hepatitis, unclear if it is alcoholic or viral, predisposition for alcoholism, cataract diagnosis, no treatment at this time. ROS: denied on brief 10 point. PAST SURGICAL HISTORY: Includes chest tube insertion, 09/2010 and ankle fracture treatment, 2011. The patient to me stated that with the holiday season she gets more lonely during this time. She describes all her family is . She does not have children. She does not live with someone and she wants to go home. The patient got a CT and MRI in the ER. MRI was not concerning for any acute stroke or neurologic issues. There is a concern of little mastoiditis. However, on her exam, tympanic membranes are clear. The patient's EKG showed sinus rhythm with a heart rate of 69. She did have a prolonged QTc [address] changes. The patient's abdominal pain film showed no obstructive bowel gas pattern and no intra-abdominal metallic foreign bodies. The patient's chest x-ray showed development of T7 superior endplate deformity and did not have cervical, thoracic, or L-spine tenderness. She was given oral replacement for hypokalemia. UDS positive for benzos. LABORATORY DATA: From [facility], hemoglobin 12.7, hematocrit 36.7, platelet count 283, white cell count 4.4, and MCV was 95.7. Electrolytes: Sodium is 143, potassium is 3.0, chloride 107, bicarbonate 24, anion gap 12, BUN 4, and creatinine 0.52. GFR non- greater than 60, glucose 80, albumin 3.0, calcium 8.1, magnesium 1.7, total bilirubin is 0.2, total protein 5.6, AST 16, ALT 6, and alkaline phosphatase 79. UDS positive for benzos. Alcohol level 232. Acetaminophen less than 10. Salicylate less than 3.5. TSH 1.93. Urinalysis showed positive nitrites, 3+ leukocyte esterase, 20-50 wbc's per high power field, 2-10 rbc's, packed bacteria, and trace mucus. Followup EKG showed a QTc of 444, a sinus rhythm, borderline right axis deviation, probable left atrial enlargement. She also had a breast implant removal, therapeutic , tubal ligation. SOCIAL HISTORY: One and a half packs per day, used to smoke for 30-45 pack years. She quit for 3 years, tobacco abuse, also did try Chantix. Alcohol 18.3, 22 standard drinks or equivalent per week and she states she is rather drinking. FAMILY HISTORY: Breast cancer in a sister; lung cancer, maternal uncle; hypertension, father; coronary artery disease, father; and stroke, father. PHYSICAL EXAMINATION: VITAL SIGNS: Today, 36.3, pulse 71, respirations 16, BP 120/89, and O2 sat 96%. GENERAL: Uses a walker. MENTAL STATUS EXAMINATION: This is a well-developed, frail female, appearing at least stated age. Attention limited. Concentration limited. Speech is normal rate. Thought process is linear and goal oriented. Thought [facility] [address] [place] [address] HISTORY AND PHYSICAL Name: MARIAN HEDRICK Room #: 526A-A [facility] IN M.R.#: [id number] Admission: 06/30/19 Attend Phys: Jacinto Callejas DO Discharge: Date of : 55 Report #: [id number] content, focused on discharge but getting entitled services. Discussed with her AA as well as professional [facility] treatment. Memory formally tested with the [facility] Mental Status Examination, which is scaled out of 28. She scored 19/28. Insight limited. Judgment limited. Fund of knowledge below average. Added her 2 more Rocephin doses. Continue thiamine 100 mg daily, multivitamin p.o. daily, magnesium oxide 400 mg p.o. daily, losartan 50 mg p.o. daily, folic acid 1 mg p.o. daily, fluoxetine 20 mg daily, vitamin B12 at 1000 mcg daily, vitamin D3 1000 units international daily, aspirin 81 mg p.o. daily, amlodipine 5 mg p.o. daily, pantoprazole 20 mg p.o. daily, gabapentin 300 mg t.i.d. for anxiety and alcoholism. Hydroxyzine 50 mg scheduled t.i.d., I am going to change that to p.r.n. for anxiety, discontinued melatonin 1 mg at bedtime, Norvasc 5 mg p.o. daily. FORMULATION: A 64-year-old female admitted for physical depression, alcoholism, and concern about failure to thrive. DIAGNOSES: Persistent depressive disorder, substance use disorder for alcohol, severe degree. Currently, not in withdrawal. Medical comorbidities include hypertension, several vitamin deficiencies likely due to her drinking. PLAN: Evaluate, stabilize, and obtain collateral. Continue medications as described above. A social work job titles consultation for aftercare prior to discharge this coming 07/03/2019. Time spent on interview, review of records, and coordination of care is at least 60 minutes. STRENGTHS: She is insured ____. WEAKNESSES: Chronic alcohol level and poor social support. <ELECTRONICALLY SIGNED> By: Jacinto Callejas DO 07/02/19 0934 [id number] 1418 Jacinto Callejas DO /nt
[2019-07-02 10:21] VITALS: BP 107/80
--- NOTE | 2019-07-02 10:34 | NUR ---
ASSUMED CARE AT 0700 THIS MORNING. PT. UP, DRESSED AND IN THE DINING ROOM SITTING ON THE COUCH WATCHING TV. SHE WAS PLEASANT AND COOPERATIVE WITH THIS RN WHILE ASSESSING HER. SHE DENIED PAIN AT THAT TIME. SHE TALKED ABOUT NEEDING TO TALK TO THE DR. TO ASSURE SHE CAN GO HOME FOR THANKSGIVING. SHE ATE MEALS ON THE UNIT, COOPERATIVE WITH TAKING HER MEDICATIONS, ATTENDED GROUPS AND PARTICIPATED. DENIES SI/HI/AVH AT THIS TIME.
--- NOTE | 2019-07-02 15:30 | NUR ---
GABE spoke with pt's friend Niesha and established that she will d/c home with resources for ETOH and MS. Niesha does nto think that this pt will be compliant but is willing to assist. Pt does not ahve any medical insurance. Pt has agreed to stay until tomorrow, and Niesha will pick her up at 4pm.
--- NOTE | 2019-07-02 16:26 | NUR ---
Pt insisted on discharging and signed AMA. Sw set up a cab voucher, and provided a handout that included crisis hotline and outpt clinics for ETOH and IL.
[2019-07-02 16:30] VITALS: BP 107/80
[2019-07-02 18:00] VITALS: BP 107/80
--- NOTE | 2019-07-05 21:09 | D ---
[facility] [place] [address] DISCHARGE SUMMARY Name: MARIAN HEDRICK Room #: 526A-A [facility] IN M.R.#: [id number] Admission: 06/30/19 Attend Phys: Jacinto Callejas DO Discharge: 07/02/19 Date of : 55 Report #: [id number] THIS REPORT FOR: //name// CC: Jacinto Callejas Yanci Wyatt DATE OF SERVICE: 07/02/2019 INPATIENT PSYCHIATRIC DISCHARGE SUMMARY This was discharge against medical advice. ATTENDING PHYSICIAN: Jacinto Callejas DO. CONFIGURATION TECHNICIAN: Silverio Mccray MD DISCHARGE DIAGNOSES: Unspecified depression, resolved; substance use disorder for alcohol, moderate degree; alcohol withdrawal suspected, not demonstrated. Medical comorbidities include urinary tract infection, currently treated with IM Rocephin. Per Dr. Mccray, now we can switch to p.o. Keflex after finishing IM Rocephin; hypertension, on Norvasc and losartan. REASON FOR ADMISSION: Transferred from the [facility] Emergency Room. Apparently, she was brought in, mom was contacted with suicidal statements. Blood Alcohol level was initially 232. HOSPITAL COURSE: The patient was initially interested in dual diagnosis as well as the patient's moving treatment to [facility]. We made arrangements for her to be picked up by her caregiver tomorrow afternoon, 07/03/2019. Later in the day, the patient demanded discharge stating that she had access to her home. I explained to the patient she will be discharged without prescriptions, without discharge plan being completed and this would be AMA. She went on to sign the form for discharge against medical advice. MEDICATIONS: At the time of discharge were Rocephin 1 g, receiving dose 2/2, thiamine 100 mg daily, magnesium oxide 400 mg daily, losartan 50 mg p.o. daily, fluoxetine 20 mg p.o. daily, vitamin B12, vitamin D 1000 units daily, aspirin 81 mg p.o. daily, amlodipine 5 mg p.o. daily, pantoprazole 20 mg p.o. daily, gabapentin 300 mg p.o. t.i.d. The patient is encouraged to seek general medical and psychiatric care in the outpatient setting within the next 2 weeks. Most of her blood pressure medicines, as such, she was prescribed before admission. VITAL SIGNS: Temperature 36.5, pulse 79, respirations 14, BP 107/80. Not on [address] [address] DISCHARGE SUMMARY Name: MARIAN HEDRICK Room #: 526A-A [facility] IN .R.#: [id number] Admission: 06/30/19 Attend Phys: Jacinto Callejas DO Discharge: 07/02/19 Date of : 55 Report #: [id number] oxygen. MUSCULOSKELETAL: Ambulating with walker, kyphotic, bit disheveled. MENTAL STATUS EXAMINATION: This is a well-developed, frail female appearing at least stated age. Attention limited. Concentration limited. Speech is normal rate, rhythm, and tone. Thought process linear and goal directed. Thought content, focused on discharge, would not admit to having cravings but I am suspicious. No psychomotor retardation/psychomotor agitation. Memory, some impairment. Insight limited. Judgment limited. Fund of knowledge at least average range. PROGNOSIS: For this patient is guarded to poor, given leaving against medical advice, also given her age, diagnosis, poor social support. <ELECTRONICALLY SIGNED> By: Jacinto Callejas DO 07/05/199 2316 7101 Jacinto Callejas DO /nt
== END 2019-07-02 18:16 | disposition left against medical advice (07) | DRG 881 ==
LOC: SBH
PROVIDERS: ADMIT Psychiatry & Neurology Psychiatry
DX: F34.1 Dysthymic disorder (principal); E43 Unspecified severe protein-calorie malnutrition; N39.0 Urinary tract infection, site not specified; R45.851 Suicidal ideations; F10.239 Alcohol dependence with withdrawal, unspecified; Z68.1 Body mass index [BMI] 19.9 or less, adult; I10 Essential (primary) hypertension; J44.9 Chronic obstructive pulmonary disease, unspecified; F41.9 Anxiety disorder, unspecified; Z87.81 Personal history of (healed) traumatic fracture; Z87.891 Personal history of nicotine dependence; Z88.6 Allergy status to analgesic agent; Z82.49 Family history of ischemic heart disease and other diseases of the circulatory system; Z82.3 Family history of stroke; Z80.3 Family history of malignant neoplasm of breast
CPT/HCPCS: 10880

== ENCOUNTER 2019-07-21 11:32 | Inpatient (IN) | payer OTHER ==
[~2019-07-21] VITALS: Ht 160 cm; Wt 50.3 kg
[~2019-07-21 11:32] MED LIST changes: +ASA81BEC PO; +COZAAR 25 MG TA25 M2 PO; +FLAX, FISH & B1 EACH PO; +FOLIC ACID1 MG PO; +HYDROXYZINE HCL50 MG PO; +IBUPROFEN 800800 M1 PO; +MAG-OXIDE400 MG PO; +MELATONIN1 MG PO; +NEURONTIN300 MG PO; +OMEPRAZOLE 20 M20 M1 PO; +PROAIR HFA8.5 GM INH; +PROZAC20 M1 PO; +REVIA 50 MG TAB50 M1 PO; +SELENIUM SULFI120 ML; +SYMBICORT160 MCG/4. INH; +TUDORZA PRESS400 MCG INH; +VITAMIN B-6100 MG PO; +VITAMIN D31000 UNIT PO
[2019-07-21 12:05] LABS: WBC 4.9 thou/uL (4.0-11.0)
[2019-07-21 12:07] LABS: ABSOLUTE NEUTROPHILS 2.3 thou/uL (1.4-8.2); EOSINOPHILS 3.7 % (0.0-3.0); HEMATOCRIT 36.4 % (37.0-47.0); LYMPHOCYTES 36.6 % (24.0-44.0); MCH 31.1 pg (26.0-34.0); MCV 94.2 fL (80.0-100.0); MONOCYTES 11.1 % (1.0-8.0); PLATELET COUNT 311 thou/uL (150-400); POLYS 47.6 % (36.0-66.0); RBC 3.86 mil/uL (4.20-5.00); RDW 19.3 % (10.5-14.5)
[2019-07-21 12:16] LABS: PROTIME 10.1 Seconds (9.3-11.4)
[2019-07-21 12:22] LABS: ANION GAP 9 mmol/L (7-16); BUN 7 mg/dL (7-18); CALCIUM 9.6 mg/dL (8.5-10.1); CHLORIDE 105 mmol/L (98-107); CO2 27 mmol/L (21-32); CREATININE 0.7 mg/dL (0.6-1.0); GLUCOSE 83 mg/dL (74-106); POTASSIUM 3.7 mmol/L (3.5-5.1); SODIUM 141 mmol/L (136-145)
[2019-07-21 12:26] LABS: ALBUMIN 3.2 g/dL (3.4-5.0); MAGNESIUM 1.9 mg/dL (1.8-2.4); PHOSPHORUS 3.5 mg/dL (2.5-4.9); SALICYLATE < 2.8 mg/dL (2.8-20.0); SGOT 16 U/L (15-37); SGPT 16 U/L (30-65); TOTAL BILIRUBIN 0.2 mg/dL (<0.1-1.0); TOTAL PROTEIN 7.1 g/dL (6.4-8.2); TROPONIN-I 0.08 ng/mL (<0.06)
--- NOTE | 2019-07-21 12:27 | EKG ---
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
[2019-07-21 13:03] LABS: URINE BILIRUBIN NEGATIVE (Negative); URINE BLOOD NEGATIVE (Negative); URINE CLARITY CLEAR; URINE COLOR YELLOW; URINE GLUCOSE-RANDOM* NEGATIVE (Negative); URINE KETONES NEGATIVE (Negative); URINE NITRITE-REFLEX NEGATIVE (Negative); URINE PROTEIN (DIPSTICK) NEGATIVE (Negative); URINE UROBILINOGEN 0.2 E.U./dl (0.2-1.0)
[2019-07-21 13:03] LABS: AMP/METHAMP Negative (Negative); BARBITURATES Negative (Negative); BENZODIAZEPINES POSITIVE (Negative); COCAINE Negative (Negative); METHADONE Negative (Negative); OPIATES Negative (Negative); PCP Negative (Negative)
[2019-07-21 13:07] LABS: URINE LEUKOCYTES-REFLEX 1+ (Negative)
[2019-07-21 13:16] LABS: CASTS None Seen /LPF (None Seen); SQUAMOUS 0-3 Few /LPF (0-3); URINE WBC-REFLEX 0-5 Rare /HPF (0-5)
[2019-07-21 13:17] LABS: BACTERIA-REFLEX 1-9 Few /HPF (None Seen); CRYSTALS None Seen /LPF (None Seen); URINE RBC None Seen /HPF (0-2)
[2019-07-21 14:18] VITALS: BP 99/61
[2019-07-21 14:23] LABS: ANISOCYTOSIS 2+
[2019-07-21] MEDS ORDERED: SERTRALINE HCL100 MG PO (14:44)
[2019-07-21] MEDS ORDERED: LIPITOR 20 MG T20 M1 PO (14:45)
[2019-07-21] MEDS ORDERED: TRAZODONE 150150 M1 PO (14:45)
[2019-07-21] MEDS ORDERED: PLAVIX 75 MG TA75 MG PO (14:45)
[2019-07-21 14:50] VITALS: BP 96/65
[2019-07-21 15:03] LABS: FOLIC ACID 4.5 ng/mL (8.6-58.9)
[2019-07-21 16:58] LABS: HEMATOCRIT 30.8 % (37.0-47.0); HEMOGLOBIN 10.2 gm/dL (12.0-15.0)
--- NOTE | 2019-07-21 18:09 | NUR ---
RECEIVED PATIENT FROM ER AT 1500. SHE WAS QUITE AGITATED AND YELLING AT NURSES FOR FOOD. SHE IS ALERT AND ORIENTED X4 BUT VERY SLEEPY. SHE JUST WANTS TO SLEEP. FINISHED BANANA BAG AND STARTED NS AT 75CC/HR. HER DINNER IS HERE BUT SHE DOES NOT WANT TO EAT YET. SHE WAS ABLE TO CHOLO TO THE BSC AND VOID WITH ASSIST X1. CIWA WAS 3 TODAY. PATIENT IS MUCH MORE CALM AT THIS TIME AND IS RESTING QUIETLY.
[2019-07-21 18:20] VITALS: BP 100/61
[2019-07-21 19:54] VITALS: BP 121/84
[2019-07-22 00:22] VITALS: BP 126/96
[2019-07-22 04:26] LABS: HEMATOCRIT 33.1 % (37.0-47.0); HEMOGLOBIN 10.6 gm/dL (12.0-15.0)
[2019-07-22 04:48] VITALS: BP 118/76
[2019-07-22 04:48] LABS: CHOLESTEROL 149 mg/dL (<200); HDL CHOLESTEROL 56 mg/dL (>40); LDL CHOLESTEROL 77 mg/dL (<100); TC:HDL 2.7 Ratio (Not establshd); TRIGLYCERIDE 83 mg/dL (<150); TROPONIN-I 0.06 ng/mL (<0.06); VLDL 17 mg/dL (<40)
[2019-07-22 04:53] LABS: SERUM ASSESSMENT Clear
--- NOTE | 2019-07-22 04:58 | NUR ---
ASSUMED PT CARE AT 1900. PT A/OX4, ASSESSMENT CHARTED. VITAL SIGNS STABLE. NO COMPLAINTS OF PAIN, CIWA PROTOCOL, PT SCORED BETWEEN 2-3. PT RESTED WELL THROUGH THE NIGHT. WILL CONTINUE TO MONITOR.
[2019-07-22 07:19] VITALS: BP 94/57
--- NOTE | 2019-07-22 09:01 | NUR ---
ASSUMED CARE OF PT APPROX 0715, SLEEPING, C/O HEADACHE CONSTANTLY NOT JUST WITH ETOH W/D. DID CIWA, SHAKY, NAUSEAS, NO EMESIS, TREMORS, A&0X4, AMB W/WALKER, REMINDED INSTRUCTION ON CALLING FOR ANY AMB ASSISTANCE, SHE PROMISES, BED ALARM ON. IVF RUNNING, SEE SEPARATE INTERVENTIONS FOR ASSESSMENTS. ENCOURAGED HER TO USE CALL LIGHT FOR ANY NEEDS
--- NOTE | 2019-07-22 13:20 | NUR ---
GAVE REPORT TO ONCOMING NURSE, NAZARIO RENEE AND AWAITING A NEW IV BY IV TEAM TWO RN'S HAVE ATTEMPTED. INTRO'D OTHER RN TO PT. NO NEEDS AT THIS TIME
[2019-07-22 16:22] VITALS: BP 155/86
[2019-07-22 17:19] VITALS: BP 124/55
--- NOTE | 2019-07-22 18:28 | NUR ---
ASSUMED CARE AT 1300, SHIFT ASSESMENT DONE, MEDS GIVEN, VSS. DENIES PAIN, NAUSEA, VOMITING. VERY TIRED, SLEEPY. CIWA SCORE Q4H, LAST ONE WAS 4. NSR ON TELE. WILL CONTINUE TO ASSESS AND ASSIST WITH ADLs NEEDED.
[2019-07-22 20:00] VITALS: BP 120/83
[2019-07-23 04:24] VITALS: BP 117/70
--- NOTE | 2019-07-23 04:49 | NUR ---
PATIENT NOT NPO AFTER MIDNIGHT, DEMANDING MILK AND CHIPS. STATES SHE DOES NOT WANT STRESS TEST, ONLY WANTS TO GO HOME. DYLAN REASSESSED, TREATED PER PROTOCOL. STILL ADAMANT THAT SHE WANTS TO DRINK MILK AND GO HOME SOON POSSIBLE BECAUSE SHE DOESN'T HAVE INSURANCE AND CAN'T PAY FOR THIS HOSPITAL VISIT.
[2019-07-23 05:24] LABS: CALCIUM 8.8 mg/dL (8.5-10.1); CREATININE 0.7 mg/dL (0.6-1.0); MAGNESIUM 1.8 mg/dL (1.8-2.4); PHOSPHORUS 3.6 mg/dL (2.5-4.9)
[2019-07-23 08:20] VITALS: BP 129/86
--- NOTE | 2019-07-23 10:35 | 2DMMODE ---
[facility] [address] [place] [address] 2 D/M-MODE ECHOCARDIOGRAM Name: MARIAN HEDRICK Room #: 202-P ADM IN M.R.#: [id number] Admission: 07/21/19 Attend Phys: Keely Hernandez, Discharge: Date of : 55 Report #: [id number] THIS REPORT FOR: //name// APPROVED REPORT Study performed: 07/23/2019 09:21:46 EXAM: Comprehensive 2D, Doppler, and color-flow Echocardiogram Patient Location: Bedside Room #: 202 Status: routine BSA: 1.50 HR: 53 bpm BP: 117/70 mmHg Rhythm: NSR Other Information Study Quality: Adequate Technically limited study due to MACHINE BROKE DOWN. UNABLE TO FINISH. Indications Chest Pain Hx: ETOH abuse. 2D Dimensions RVDd: 29.64 mm IVSd: 9.78 (7-11mm) LVOT Diam: 19.77 (18-24mm) LVDd: 41.41 mm PWd: 10.16 (7-11mm) Ascending Ao: 33.20 (22-36mm) LVDs: 28.86 (25-40mm) Aortic Root: 31.69 mm Volumes Left Atrial Volume (Systole) Single Plane 4CH: 32.70 mL Aortic Valve AoV Peak Remy.: 1.28 m/s AO Peak Gr.: 6.59 mmHg LVOT Max P.18 mmHg LVOT Max V: 0.74 m/s Mitral Valve E/A Ratio: 0.9 MV Decel. Time: 192.81 ms [facility] [address] [place] [address] 2 D/M-MODE ECHOCARDIOGRAM Name: MARIAN HEDRICK Room #: 202-P [facility] IN [facility].#: [id number] Admission: 07/21/19 Attend Phys: Keely Hernandez, Discharge: Date of : 55 Report #: [id number] MV E Max Remy.: 0.88 m/s MV A Remy.: 1.01 m/s MV PHT: 55.92 ms IVRT: 101.50 ms Pulmonary Valve PV Peak Remy.: 0.67 m/s PV Peak Gr.: 1.80 mmHg Pulmonary Vein P Vein S: 0.68 m/s P Vein A: 0.30 m/s P Vein D: 0.40 m/s P Vein A Dur.: 129.2 msec P Vein S/D Ratio: 1.70 Tricuspid Valve TR Peak Remy.: 2.14 m/s TR Peak Gr.: 18.28 mmHg Left Ventricle The left ventricle is normal size. There is normal LV segmental wall motion. There is normal left ventricular wall thickness. Left ventricular systolic function is normal. LVEF is 55-60%. Mild diastolic dysfunction is present (impaired relaxation pattern). Right Ventricle The right ventricle is normal size. The right ventricular systolic function is normal. Atria The left atrium size is normal. The right atrium size is normal. Aortic Valve The aortic valve is normal in structure; minimally calcified. No aortic regurgitation is present. There is no aortic valvular stenosis. Mitral Valve The mitral valve is normal in structure. Trace mitral regurgitation. No evidence of mitral valve stenosis. Tricuspid Valve The tricuspid valve is normal in structure. Trace tricuspid regurgitation. Estimated PAP is 18mmHg plus the right atrial pressure. [facility] [address] [place] [address] 2 D/M-MODE ECHOCARDIOGRAM Name: MARIAN HEDRICK Room #: 202-P [facility] IN M.R.#: [id number] Admission: 07/21/19 Attend Phys: Keely Hernandez, Discharge: Date of : 55 Report #: [id number] Pulmonic Valve The pulmonary valve is normal in structure. Trace pulmonic regurgitation. Great Vessels The aortic root is normal in size. The ascending aorta is normal in size. IVC is not visualized. Pericardium There is no pericardial effusion. <Conclusion> The left ventricle is normal size. There is normal left ventricular wall thickness. Left ventricular systolic function is normal. Mild diastolic dysfunction is present (impaired relaxation pattern). The right ventricle is normal size. The left atrium size is normal. The aortic valve is normal in structure; minimally calcified. Trace mitral regurgitation. Trace tricuspid regurgitation. Estimated PAP is 18mmHg plus the right atrial pressure. <ELECTRONICALLY SIGNED> By: Trevor Thorpe MD 07/23/19 1034 1034 1034 Trevor Thorpe MD /INF
--- NOTE | 2019-07-23 12:18 | NUR ---
pt went down for nec med stress, refused to have images taken, was brought back to the room. ate late breakfast, demanded a cab to "go home" CIWA assessed, score was 15. was given 2mg ativan IV. Dr guaman aware. will monitor
[2019-07-23 12:21] VITALS: BP 141/85
[2019-07-23 15:39] VITALS: BP 121/65
--- NOTE | 2019-07-23 17:48 | NUR ---
pt was very anxious and asked for something to "help her sleep" She has been drinking miralax to help clean her out before the colonoscopy in the AM.
[2019-07-23 20:18] VITALS: BP 110/61
--- NOTE | 2019-07-24 04:24 | NUR ---
ASSUMED PT CARE AT 1900. PT IS DROWSY AND GOING THROUGH WITHDRAWALS. NO SIGN OF DISTRESS NOTED IN PT. FALL PRECAUTION IN PLACE. CIWA PROTOCOL IN PLACE. PT IS STABLE THROUGHOUT THE NIGHT. PT BEGINS TO GET CONFUSED AT ABOUT 0300 AM AND STATES THAT SHE WANTED TO GO HOME. CIWA PROTOCOL DONE AND PT SCORED 11. LORAZEPAM ADMINISTERED. PT IS NPO FOR EGD/COLONOSCOPY. CONTINUE TO MONITOR PT. DENIES ANY FURTHER NEEDS AT THIS TIME.
[2019-07-24 05:06] VITALS: BP 151/91
[2019-07-24 07:10] VITALS: BP 133/81
--- NOTE | 2019-07-24 09:07 | HC ---
[facility] [place] [address] CONSULTATION Name: MARIAN HEDRICK Room #: 202-P ADM IN M.R.#: [id number] Admission: 07/21/19 Attend Phys: Keely Hernandez MD Discharge: Date of : 55 Report #: [id number] THIS REPORT FOR: //name// CC: FAM unknown Keely Hernandez DATE OF SERVICE: 07/22/2019 INDICATION: Chest pain. HISTORY OF PRESENT ILLNESS: This is a 64-year-old female with chronic alcohol abuse, hypertension, seizure, withdrawal, arthritis, hip fracture, general disability, presenting with complaints of chest pain and vomiting. The patient is a poor historian. It seems that she drinks alcohol on a daily basis. She reports having diminished appetite with intermittent episodes of nausea and vomiting. She complains of a discomfort in the substernal area, associated with shortness of breath, on and off for the past several weeks. Does not appear to be related to physical exertion. There is no history of PND or orthopnea. PAST MEDICAL HISTORY: Chronic alcoholism with multiple hospitalizations. 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 Prior hip fracture with gentle disability. Needs a walker for ambulation. Hypertension but not taking any medications. ALLERGIES: HYDROCODONE. MEDICATIONS: Apparently include Norvasc 5 mg daily, thiamine, multivitamins, vitamin B6. SOCIAL HISTORY: One pack per day smoker. FAMILY HISTORY: Negative for premature CAD. REVIEW OF SYSTEMS: A full 10-point review of systems performed. Only the pertinent positives and negatives are described in the HPI. PHYSICAL EXAMINATION: VITAL SIGNS: Blood pressure is 118/70, heart rate is 69 beats per minute. GENERAL APPEARANCE: This is a thin female in no acute distress. HEENT: Normocephalic, atraumatic. Oral mucosa moist. NECK: Supple. LUNGS: Clear to auscultation. CARDIAC: Regular rate and rhythm, S1, S2 positive. ABDOMEN: Soft, nontender. EXTREMITIES: No cyanosis, no edema. ECG reveals sinus rhythm, otherwise normal. [facility] [address] [place] [address] CONSULTATION Name: MARIAN HEDRICK Room #: 202-[facility] IN M.R.#: [id number] Admission: 07/21/19 Attend Phys: Keely Hernandez MD Discharge: Date of : 55 Report #: [id number] LABORATORY VALUES: Hemoglobin is 10.6. Peak troponin 0.08, ammonia level is 18, creatinine is 0.7. ASSESSMENT AND PLAN: 1. Chest pain syndrome, may be related to GI in view of her intermittent episodes of vomiting. However, the troponin level is 0.08, the significance is unclear. I am not convinced that this is financial service representative of ischemia. We will need to proceed with noninvasive stress testing and echocardiogram. 2. Chronic alcohol abuse, medication for withdrawal. 3. Hypertension, low blood pressure at this time. 4. Tobacco use, complete smoking cessation is advised. <ELECTRONICALLY SIGNED> By: Trevor Thorpe MD 07/24/19 0907 1006 2104 Trevor Thorpe MD /alvina
--- NOTE | 2019-07-24 10:36 | NUR ---
ASSUMED CARE AT 0700, SHIFT ASSESSMENT DONE, MEDS GIVEN, VSS. DENIES PAIN, NAUSEA, VOMITING. NPO SINCE LAST NIGHT. LEFT FOR COLONOSCPOY THIS AM. VERY ANXIOUS THIS MORNING, CIWA PER PRTOCOL, PRN 1 MG ATIVAN GIVEN. ROOM AIR, NSR ON TELE. WILL CONTINUE TO ASSESS AND ASSIST WITH ADLs NEEDED.
[2019-07-24 11:40] VITALS: BP 141/77
[2019-07-24] MEDS ORDERED: PROTONIX40 M1 PO (14:07)
--- NOTE | 2019-07-24 17:18 | NUR ---
Patient admits with ETOH with draaw and elevated troponin.Patient with dc orders to home. met with patient who kept eyes closed reports she wants to sleep. She was able to answer that she resides at home in independent home. She is aware she is at [facility] and can tell me where she is and address. [facility]. Sp with sharlene who reports she is DPOA, caset noted a Adrianne DPOA. Sharlene reports patient does not have HH as prev had [facility] care. Sharlene reports it is her and friend Brigid who assist patient. Sharlene reports she is caring for family member in home and Brigid doing more than her at this time. Sharlene to have friend transport patient. Sharlene reports patient calls a cab for ETOH. Patient to dc home. She has refused therapy, and treatemnt interventions. She refused ETOH resources. patient left AMA in Jun from [facility]. Concern for ability to care for herself in home setting. Hotlined to [facility] [employer] [facility] [place] report #[id number]
[2019-07-24 18:34] VITALS: BP 141/77
--- NOTE | 2019-07-24 19:17 | NUR ---
DISCHARGE ORDER RECEIVED, PERIPHERAL IV WAS TAKEN OUT. YANA, FRIEND OF PATIENT CAME AT 1830 AND PICKED HER UP. TELE WAS DC'D. PT LEFT IN A WHEELCHAIR AT 1840 WITH [facility]ER TRANSPORT.
--- NOTE | 2019-07-25 15:07 | PATH ---
[facility] [place] [address] PATHOLOGY RPT PROCEDURE Name: MARIAN MCGINNIS Room #: 202-P DIS IN M.R.#: [id number] Admission: 07/21/19 Date of : 55 Discharge: 07/24/19 Report #: [id number] Path Case #: [id number] LCA Accession Number: [id number] . 01 Material submitted: . PART A: stomach - RANDOM GASTRIC BIOPSY R/O H. PYLORI PART B: ileo-cecal valve - POLYP AT ILEOCECAL VALVE . 01 Clinical history: . Anemia, abdomen pain, nausea vomiting A. Rule out H. pylori . 02 Diagnosis: A. Gastric mucosa, random gastric rule out H. pylori, endoscopic biopsy: - Mild chronic gastritis with features of reactive gastropathy and focal intestinal metaplasia. - Negative for atrophy or dysplasia. - Negative for Helicobacter pylori (properly controlled immunohistochemical stain performed). . B. Polyp, at ileocecal valve, endoscopic biopsy: - Tubular adenoma identified in all fragments sampled. - Negative for high grade dysplasia. (IUV/db; 07/25/2019) LBQ 07/25/2019 1130 Local . 02 Electronically signed: . Kathryn Nathan MD, Pathologist NPI- [id number] . 01 Gross description: . A. The specimen is received in formalin, labeled "Marian Mcginnis, random gastric BX" and consists of multiple fragments of pink-seo tissue measuring 1.3 x 0.4 x 0.3 cm in aggregate which are entirely submitted in A1. . B. The specimen is received in formalin, labeled "[place] t[place], polyp at ileocecal valve" and consists of multiple blue dyed fragments of tissue measuring 1.4 x 0.7 x 0.4 cm in aggregate which are entirely submitted in B1. (SDY; 07/24/2019) SYU/SYU 07/24/2019 1613 Local . 02 Pathologist provided ICD-10: K29.50, D12.0 . 02 CPT . [address] [address] PATHOLOGY RPT PROCEDURE Name: MARIAN MCGINNIS Room #: 202-P DIS IN M.R.#: [id number] Admission: 07/21/19 Date of : 55 Discharge: 07/24/19 Report #: [id number] Path Case #: [id number] Specimen Comment: A courtesy copy of this report has been sent to [phone], [phone] Specimen Comment: [id number] Specimen Comment: Report sent to and Specimen Comment: A duplicate report has been generated due to demographic updates. Performed at: [address], [place] [id number] MD Dario Hoffmann MD Phone: [phone] Performed at: [address] [id number] MD Kathryn Nathan MD Phone: [phone]
== END 2019-07-24 19:19 | disposition home or self-care (01) | DRG 349 ==
LOC: ER 11:32 → 2N 13:42 → EROBS 13:42 → 2N 14:30 → ENTRNSPT 07-24 18:42 → 2N 07-24 19:19
PROVIDERS: Emergency Medicine; ADMIT Internal Medicine
PROC: 0DB68ZX Excision of Stomach, Via Natural or Artificial Opening Endoscopic, Diagnostic (ICD-10-PCS; principal; 2019-07-24)
PROC: 0DBC8ZZ Excision of Ileocecal Valve, Via Natural or Artificial Opening Endoscopic (ICD-10-PCS; principal; 2019-07-24)
DX: K25.9 Gastric ulcer, unspecified as acute or chronic, without hemorrhage or perforation (principal); F32.9 Major depressive disorder, single episode, unspecified; F10.229 Alcohol dependence with intoxication, unspecified; F17.210 Nicotine dependence, cigarettes, uncomplicated; F41.9 Anxiety disorder, unspecified; K44.9 Diaphragmatic hernia without obstruction or gangrene; E53.8 Deficiency of other specified B group vitamins; K21.9 Gastro-esophageal reflux disease without esophagitis; K29.70 Gastritis, unspecified, without bleeding; D64.9 Anemia, unspecified; E83.42 Hypomagnesemia; E87.6 Hypokalemia; Z60.2 Problems related to living alone; Z87.81 Personal history of (healed) traumatic fracture; Z88.6 Allergy status to analgesic agent; Z71.6 Tobacco abuse counseling; Z79.82 Long term (current) use of aspirin; Z79.899 Other long term (current) drug therapy; Z28.21 Immunization not carried out because of patient refusal
CPT/HCPCS: 10081; 62110; 62900; 70005

== ENCOUNTER 2019-07-27 08:12 | Emergency (ER) | payer OTHER ==
[~2019-07-27] VITALS: Ht 160 cm; Wt 59.0 kg
[~2019-07-27 08:12] MED LIST changes: +LIPITOR 20 MG T20 M1 PO; +PLAVIX 75 MG TA75 MG PO; +PROTONIX40 M1 PO; +SERTRALINE HCL100 MG PO; +TRAZODONE 150150 M1 PO
[2019-07-27] MEDS ORDERED: NORCO 5-325 TA1 EAC1 PO (09:42)
[2019-07-27] MEDS ORDERED: NAPROSYN500 MG PO (09:42)
[2019-07-27 10:47] VITALS: BP 109/68
== END 2019-07-27 10:50 | disposition home or self-care (01) ==
LOC: ER 08:12
DX: M54.5 Low back pain (principal); I10 Essential (primary) hypertension; J44.9 Chronic obstructive pulmonary disease, unspecified; F41.9 Anxiety disorder, unspecified; F32.9 Major depressive disorder, single episode, unspecified; F17.210 Nicotine dependence, cigarettes, uncomplicated; Z87.440 Personal history of urinary (tract) infections; Z88.6 Allergy status to analgesic agent

== ENCOUNTER 2019-08-03 04:55 | Emergency (ER) | payer OTHER ==
[~2019-08-03] VITALS: Ht 160 cm; Wt 59.0 kg
[~2019-08-03 04:55] MED LIST changes: +NAPROSYN500 MG PO; +NORCO 5-325 TA1 EAC1 PO
[2019-08-03 06:08] LABS: URINE BILIRUBIN NEGATIVE (Negative); URINE BLOOD NEGATIVE (Negative); URINE CLARITY CLEAR; URINE COLOR YELLOW; URINE GLUCOSE-RANDOM* NEGATIVE (Negative); URINE KETONES NEGATIVE (Negative); URINE LEUKOCYTES-REFLEX TRACE (Negative); URINE NITRITE-REFLEX NEGATIVE (Negative); URINE PROTEIN (DIPSTICK) NEGATIVE (Negative); URINE UROBILINOGEN 0.2 E.U./dl (0.2-1.0)
[2019-08-03] MEDS ORDERED: NORFLEX100 MG PO (06:14)
[2019-08-03] MEDS ORDERED: LIDODERM1 EACH TOP (06:14)
[2019-08-03 06:33] VITALS: BP 142/93
== END 2019-08-03 06:46 | disposition home or self-care (01) ==
LOC: ER 04:55
PROVIDERS: Emergency Medicine
DX: M54.5 Low back pain (principal); I10 Essential (primary) hypertension; F41.9 Anxiety disorder, unspecified; F32.9 Major depressive disorder, single episode, unspecified; J44.9 Chronic obstructive pulmonary disease, unspecified; F17.210 Nicotine dependence, cigarettes, uncomplicated; Z88.5 Allergy status to narcotic agent

== ENCOUNTER 2019-08-07 19:36 | Emergency (ER) | payer OTHER ==
[~2019-08-07] VITALS: Ht 160 cm; Wt 61.2 kg
[~2019-08-07 19:36] MED LIST changes: +LIDODERM1 EACH TOP; +NORFLEX100 MG PO
[2019-08-07 22:14] LABS: ABSOLUTE NEUTROPHILS 12.6 thou/uL (1.4-8.2); BASOPHILS 0.3 % (0.0-2.0); EOSINOPHILS 1.5 % (0.0-3.0); HEMATOCRIT 32.6 % (37.0-47.0); HEMOGLOBIN 10.6 gm/dL (12.0-15.0); LYMPHOCYTES 7.1 % (24.0-44.0); MCHC 32.6 g/dL (28.0-37.0); PLATELET COUNT 351 thou/uL (150-400); POLYS 85.1 % (36.0-66.0); RBC 3.66 mil/uL (4.20-5.00); RDW 20.7 % (10.5-14.5); WBC 14.8 thou/uL (4.0-11.0)
[2019-08-07 22:31] LABS: ANION GAP 7 mmol/L (7-16); BUN 29 mg/dL (7-18); CALCIUM 9.9 mg/dL (8.5-10.1); CHLORIDE 92 mmol/L (98-107); CO2 31 mmol/L (21-32); GLUCOSE 84 mg/dL (74-106); LIPASE 45 U/L (73-393); SODIUM 130 mmol/L (136-145); TROPONIN-I <0.06 ng/mL (<0.06)
[2019-08-07 22:34] LABS: POTASSIUM 2.8 mmol/L (3.5-5.1)
[2019-08-07 23:13] VITALS: BP 105/80
--- NOTE | 2019-08-08 10:57 | EKG ---
[address] [place] [employer] [place] [address] ELECTROCARDIOGRAM REPORT Name: MARIAN HEDRICK [facility] #[facility] [id number] Admission: 08/07/19 Attend Phys: Discharge: 08/07/19 Date of : 55 Report #: [id number] THIS REPORT FOR: //name// [facility] ED Test Date: 2019-08-07 Test Time: 22:11:33 Pat Name: MARIAN HEDRICK Department: Room: Gender: F Odd Piece Checker: : 1955 Requested By: Kaitlin Barnett Order Number: [id number] MD: Trevor Thorpe Measurements Intervals [place] Rate: 93 P: 56 PA: 127 QRS: 62 QRSD: 90 T: 59 QT: 457 QTc: 569 Interpretive Statements Sinus rhythm Probable left atrial enlargement Probable left ventricular hypertrophy Prolonged QT interval Compared to ECG 07/21/2019 11:50:57 Prolonged QT interval now present Electronically Signed On 08-08-2019 10:56:52 DIORAMIST by Trevor Thorpe [email or web address] <ELECTRONICALLY SIGNED> By: Trevor Thorpe MD 08/08/19 1056 2211 10 MD ABIOLA Gracia
== END 2019-08-07 23:13 | disposition home or self-care (01) ==
LOC: ER 19:36
PROVIDERS: Emergency Medicine
DX: E87.6 Hypokalemia (principal); M54.5 Low back pain; J44.9 Chronic obstructive pulmonary disease, unspecified; F41.9 Anxiety disorder, unspecified; F32.9 Major depressive disorder, single episode, unspecified; I10 Essential (primary) hypertension; F17.210 Nicotine dependence, cigarettes, uncomplicated; Z88.5 Allergy status to narcotic agent

== ENCOUNTER 2019-08-15 06:59 | Emergency (ER) | payer OTHER ==
[~2019-08-15] VITALS: Ht 160 cm; Wt 59.0 kg
[2019-08-15 10:04] VITALS: BP 112/78
== END 2019-08-15 10:05 | disposition home or self-care (01) ==
LOC: ER 06:59
DX: F10.10 Alcohol abuse, uncomplicated (principal); F91.9 Conduct disorder, unspecified; G89.29 Other chronic pain; M54.9 Dorsalgia, unspecified; F41.9 Anxiety disorder, unspecified; F32.9 Major depressive disorder, single episode, unspecified; J44.9 Chronic obstructive pulmonary disease, unspecified; I10 Essential (primary) hypertension; F17.210 Nicotine dependence, cigarettes, uncomplicated; Z88.5 Allergy status to narcotic agent; W18.39XA Other fall on same level, initial encounter; Y92.89 Other specified places as the place of occurrence of the external cause; Y99.8 Other external cause status

== ENCOUNTER 2019-09-20 21:57 | Emergency (ER) | payer OTHER ==
[~2019-09-20] VITALS: Ht 160 cm; Wt 59.0 kg
[~2019-09-20 21:57] MED LIST changes: +CARAFATE 11 GM/10 M1 PO; +PROTONIX 20 MG20 MG PO
[2019-09-20 22:48] LABS: ABSOLUTE NEUTROPHILS 3.2 thou/uL (1.4-8.2); BASOPHILS 1.8 % (0.0-2.0); EOSINOPHILS 3.3 % (0.0-3.0); HEMATOCRIT 38.8 % (37.0-47.0); HEMOGLOBIN 12.2 gm/dL (12.0-15.0); LYMPHOCYTES 37.6 % (24.0-44.0); MCH 26.3 pg (26.0-34.0); MCHC 31.5 g/dL (28.0-37.0); MCV 83.4 fL (80.0-100.0); MONOCYTES 5.2 % (1.0-8.0); PLATELET COUNT 538 thou/uL (150-400); POLYS 52.1 % (36.0-66.0); RBC 4.65 mil/uL (4.20-5.00); RDW 18.8 % (10.5-14.5); WBC 6.1 thou/uL (4.0-11.0)
[2019-09-20 22:57] LABS: CALCIUM 8.4 mg/dL (8.5-10.1); CREATININE 0.6 mg/dL (0.6-1.0); POTASSIUM 3.3 mmol/L (3.5-5.1)
[2019-09-20 23:02] LABS: ALBUMIN 3.2 g/dL (3.4-5.0); DIRECT BILIRUBIN 0.1 mg/dL (<0.1-0.2); MAGNESIUM 1.9 mg/dL (1.8-2.4); TOTAL BILIRUBIN 0.2 mg/dL (<0.1-1.0); TOTAL PROTEIN 7.9 g/dL (6.4-8.2)
[2019-09-21 00:01] LABS: URINE BILIRUBIN NEGATIVE (Negative); URINE BLOOD NEGATIVE (Negative); URINE CLARITY CLEAR; URINE COLOR YELLOW; URINE GLUCOSE-RANDOM* NEGATIVE (Negative); URINE KETONES NEGATIVE (Negative); URINE LEUKOCYTES-REFLEX TRACE (Negative); URINE NITRITE-REFLEX NEGATIVE (Negative); URINE PROTEIN (DIPSTICK) NEGATIVE (Negative); URINE SPECIFIC GRAVITY <= 1.005 (1.005-1.035); URINE UROBILINOGEN 0.2 E.U./dl (0.2-1.0)
[2019-09-21] MEDS ORDERED: HYDROXYZINE HCL25 M2 PO (00:02)
[2019-09-21] MEDS ORDERED: TRAZODONE HCL50 MG PO (00:05)
[2019-09-21] MEDS ORDERED: ROPINIROLE HCL0.5 MG PO (00:06)
[2019-09-21] MEDS ORDERED: ZANTAC 150MG T150 M1 PO (00:06)
[2019-09-21 02:39] VITALS: BP 111/80
== END 2019-09-21 02:39 | disposition home or self-care (01) ==
LOC: ER 21:57
PROVIDERS: Emergency Medicine
DX: F10.129 Alcohol abuse with intoxication, unspecified (principal); I10 Essential (primary) hypertension; J44.9 Chronic obstructive pulmonary disease, unspecified; F41.9 Anxiety disorder, unspecified; F32.9 Major depressive disorder, single episode, unspecified; F17.210 Nicotine dependence, cigarettes, uncomplicated; Z98.890 Other specified postprocedural states; Z88.5 Allergy status to narcotic agent

== ENCOUNTER 2019-11-27 23:48 | Emergency (ER) | payer OTHER ==
--- NOTE | ~2019-11-27 | EMS ---
[facility] [address] [place] [address] EMS Patient Care Report Name: MARIAN HEDRICK Room #: REG EBONI Campo#: [id number] Admission: 11/27/19 Attend Phys: Discharge: Date of : 55 Report #: [id number] THIS REPORT FOR: //name// Report Transmitted: 11/27/2019 23:23 EMS Care Summary [facility] MED-ACT Incident [id number] @ 11/27/2019 23:20 Incident Location [address] [place] [address] Patient MARIAN HEDRICK Female, 64 Years 1955 Patient Address [address] [place] [address] Patient History Chronic Obstructive Pulmonary Disease (COPD),Smoking,Cardiac - Stent,Anxiety,Alcohol Abuse, Patient Allergies No known allergies, Patient Medications Plavix, Meclizine, Atorvastatin, Sertraline, Gabapentin, Hydralazine, Alprazolam, Ranitidine, Trazodone, Cephalexin, Chief Complaint no complaint Disposition Transported No Lights/[place] Dispatch Reason Sick Person Transported To [facility] Narrative Arrived on scene to find a 64 year old female patient that was sitting on her [facility] [address] [place] [address] EMS Patient Care Report Name: MARIAN HEDRICK Room #: IRA Campo#: [id number] Admission: 11/27/19 Attend Phys: Discharge: Date of : 55 Report #: [id number] bed heavily intoxicated, she had no complaints and stated "Fine ill go to the hospital now!" she was assisted to the rney and placed in position of comfort. Patient was belligerent and extremely rude. She cursed and refused continuing assessments. She refused to answer questions and in the middle of transport began to scream saying "take me home" "I dont want to go anymore" It was explained to her that we were not able to take her back home and that we would have to drop her off at the hospital. She continued to act belligerent and cursed the rest of the transport. At destination she refused to get off the gurney and demanded to be taken back home. Security was called and she was moved from the gurney to the bed. report was given to ED physician and RN signed EPCR. Initial Vitals @23:38P: 80,R: 20,BP: 118/60,Pain: 0/10,GCS: 15,SpO2: 96,Revised Trauma: 12, Assessments @23:27MENTAL:Person Oriented,Time Oriented,Place Oriented,Event Oriented,SKIN:HEENT:LUNG SOUNDS:Left Upper: No Abnormalities,Right Upper: No Abnormalities,Left Lower: No Abnormalities,Right Lower: No Abnormalities,ABDOMEN:Left Upper: No Abnormalities,Right Upper: No Abnormalities,Left Lower: No Abnormalities,Right Lower: No Abnormalities,PELVIS//GI:No Abnormalities,EXTREMITIES:Capillary Refill: Right Upper: < 2 Sec,Capillary Refill: Left Upper: < 2 Sec,Left Arm: No Abnormalities,Right Arm: No Abnormalities,Left Leg: No Abnormalities,Right Leg: No Abnormalities,PULSE:Brachial: 1+ Thready,Radial: 1+ Thready,NEURO:No Abnormalities, Impression No Complaints or Injury/Illness Noted Timeline 23:18,Call Received 23:18,Psap Call 23:20,Dispatched 23:21,En Route 23:24,On Scene 23:26,At Patient 23:31,Depart Scene 23:38,BP: 118/60 M,PULSE: 80,RR: 20 R,SPO2: 96 Ox,ETCO2: ,BG: ,PAIN: 0,GCS: 15, 23:38,At Destination 00:00,Call Closed Disclaimer v1.1 Copyright 2020 [employer] This EMS Care Summary contains data elements from the applicable legal record [address] [address] EMS Patient Care Report Name: MARIAN HEDRICK Room #: REG EBONI Campo#: [id number] Admission: 11/27/19 Attend Phys: Discharge: Date of : 55 Report #: [id number] (which may be displayed differently). It is designed to provide pertinent information for the following purposes: continuity of care, clinical quality, and state data reporting. The complete legal record is available to ED staff and administrators of the receiving hospital in [employer]'s Patient Tracker. All data is provided "as is."
[~2019-11-27 23:48] MED LIST changes: +HYDROXYZINE HCL25 M2 PO; +ROPINIROLE HCL0.5 MG PO; +ZANTAC 150MG T150 M1 PO
== END 2019-11-28 00:06 | disposition home or self-care (01) ==
LOC: ER 23:48
DX: F10.129 Alcohol abuse with intoxication, unspecified (principal); J44.9 Chronic obstructive pulmonary disease, unspecified; I10 Essential (primary) hypertension; F17.210 Nicotine dependence, cigarettes, uncomplicated; Z88.6 Allergy status to analgesic agent; Z79.899 Other long term (current) drug therapy; Z79.82 Long term (current) use of aspirin; Y90.9 Presence of alcohol in blood, level not specified

== ENCOUNTER 2019-11-28 07:19 | Emergency (ER) | payer OTHER ==
[~2019-11-28] VITALS: Ht 154.9 cm; Wt 32.7 kg
--- NOTE | ~2019-11-28 | EMS ---
[address] [address] EMS Patient Care Report Name: MARIAN HEDRICK Room #: REG EBONI Campo#: [id number] Admission: 11/28/19 Attend Phys: Discharge: Date of : 55 Report #: [id number] THIS REPORT FOR: //name// Report Transmitted: 11/28/2019 06:[address] [facility] MED-ACT Incident [id number] @ 11/28/2019 06:47 Incident Location [address] [place] [address] Patient MARIAN HEDRICK Female, 64 Years 1955 Patient Address [address] [place] [address] Patient History Chronic Obstructive Pulmonary Disease (COPD),Smoking,Cardiac - Stent,Anxiety,Alcohol Abuse, Patient Allergies No known allergies, Patient Medications Plavix, Hydralazine, Cephalexin, Atorvastatin, Gabapentin, Ranitidine, Meclizine, Alprazolam, Trazodone, Sertraline, Chief Complaint wants help with EtOh use Disposition Transported No Lights/[place] Dispatch Reason Sick Person Transported To [facility] Narrative Pt is found sitting upright in bed. Pt is immediately verbally abusive with PD [address] [address] EMS Patient Care Report Name: MARIAN HEDRICK Room #: REG EBONI Campo#: [id number] Admission: 11/28/19 Attend Phys: Discharge: Date of : 55 Report #: [id number] and EMS on scene. Pt is a known alcoholic and is known to EMS and PD for multiple 911 calls. PD states pt requested EMS transport to the hospital for help with EtOh use. Pt admits she wants to be transported to the hospital for help with EtOH use. Pt also admits to being an alcoholic. Pt states she has no other complaints//discomfort. Pt was taken to [facility] earlier in the shift and immediately left from there with [employer]. Tx= pt able to ambulate outside to cot and secured without incident. En route= VS, hospital contact with info only, pt has no changes en route. - on arrival to [facility] pt is verbally abusive towards EMS and hospital staff and demanding to take her home, and demand that she needed help. Initial Vitals @07:00P: 90,R: 16,BP: 139/71,Pain: 0/10,GCS: 15,SpO2: 100,Revised Trauma: 12, @07:09P: 90,R: 16,BP: 140/70,GCS: 15,SpO2: 100,Revised Trauma: 12, Assessments @06:55MENTAL:Person Oriented,Time Oriented,Event Oriented,Place Oriented,SKIN:HEENT:Head/Face: No Abnormalities,Neck/Airway: No Abnormalities,LUNG SOUNDS:General: No Abnormalities,ABDOMEN:General: No Abnormalities,PELVIS//GI:EXTREMITIES:Left Arm: No Abnormalities,Right Arm: No Abnormalities,Left Leg: No Abnormalities,Right Leg: No Abnormalities,PULSE:Radial: 2+ Normal,NEURO:No Abnormalities, Impression Alcohol use Timeline 06:47,Call Received 06:47,Psap Call 06:47,Dispatched 06:48,En Route 06:54,On Scene 06:54,At Patient 07:00,BP: 139/71 M,PULSE: 90,RR: 16 R,SPO2: 100 Ox,ETCO2: ,BG: ,PAIN: 0,GCS: 15, 07:03,Depart Scene 07:09,BP: 140/70 M,PULSE: 90,RR: 16 R,SPO2: 100 Ox,ETCO2: ,BG: ,PAIN: ,GCS: 15, 07:15,At Destination 07:39,Call Closed Disclaimer v1.1 Copyright 2020 [employer] This EMS Care Summary contains data elements from the applicable legal record [address] [address] EMS Patient Care Report Name: MARIAN HEDRICK Room #: REG EBONI Campo#: [id number] Admission: 11/28/19 Attend Phys: Discharge: Date of : 55 Report #: [id number] (which may be displayed differently). It is designed to provide pertinent information for the following purposes: continuity of care, clinical quality, and state data reporting. The complete legal record is available to ED staff and administrators of the receiving hospital in [employer]'s Patient Tracker. All data is provided "as is."
[2019-11-28 11:28] VITALS: BP 132/76
== END 2019-11-28 11:28 | disposition home or self-care (01) ==
LOC: ER 07:19
DX: F10.920 Alcohol use, unspecified with intoxication, uncomplicated (principal); J44.9 Chronic obstructive pulmonary disease, unspecified; I10 Essential (primary) hypertension; F17.210 Nicotine dependence, cigarettes, uncomplicated; Z79.899 Other long term (current) drug therapy; Z79.82 Long term (current) use of aspirin; Z88.6 Allergy status to analgesic agent

== ENCOUNTER 2020-02-09 04:59 | Emergency (ER) | payer OTHER ==
[~2020-02-09] VITALS: Ht 160 cm; Wt 39.0 kg
--- NOTE | ~2020-02-09 | EMS ---
[address] [address] EMS Patient Care Report Name: MARIAN HEDRICK Room #: REG EBONI Campo#: [id number] Admission: 02/09/20 Attend Phys: Discharge: Date of : 55 Report #: [id number] THIS REPORT FOR: //name// Report Transmitted: 02/09/2020 04:36 EMS Care Summary [facility] MED-ACT Incident [id number] @ 02/09/2020 04:25 Incident Location [address] [place] [address] Patient MARIAN HEDRICK Female, 65 Years 1955 Patient Address [address] [place] [address] Patient History Chronic Obstructive Pulmonary Disease (COPD),Smoking,Cardiac - Stent,Anxiety,Alcohol Abuse, Patient Allergies No known allergies, Patient Medications Atorvastatin, Trazodone, Ranitidine, Alprazolam, Meclizine, Cephalexin, Sertraline, Hydralazine, Plavix, Gabapentin, Chief Complaint PT STATES OUT OF ALCOHOL Disposition Transported No Lights/[place] Dispatch Reason Unknown Problem/Person Down Transported To [facility] Narrative M1134 IS DISPATCHED AND RESPONDS NOTED. [facility] [address] [place] [address] EMS Patient Care Report Name: MARIAN HEDRICK Room #: REG Jahaira#: [id number] Admission: 02/09/20 Attend Phys: Discharge: Date of : 55 Report #: [id number] UPON ARRIVAL AT SCENE M1134 IS DIRECTED TO BEDROOM. 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 PD STATES THAT PT UTILIZES THE TAXI HOME FROM HOSPITAL TO STOP AT [facility] AND PROCURE MORE ETOH WHEN SHE RUNS OUT AND THAT IS HER NORMAL REASON FOR REQUESTING EMS TRANSPORT TO ER. PD STATES THAT [facility] AND [employer] OFFICE ARE INVOLVED WITH SITUATION BUT PT WILL REACTIVATE EMS UNTIL TRANSPORT IS MADE SO SHE CAN PROCURE MORE ETOH. UPON PATIENT CONTACT PT IS FOUND SEATED IN BED, ALERT, TRACKING, SHOWING NO SIGNS OF DISTRESS OR OBVIOUS TRAUMA. PT STATES SHE WANTS TO BE TRANSPORTED TO [facility]. WHEN ASKED WHAT HER CURRENT COMPLAINT IS, SHE STATES THAT SHE IS OUT OF ETOH. WHEN ASKED WHAT HER CURRENT MEDICAL COMPLAINT IS, SHE STATES "I JUST NEED TO GO TO THE ER". PT IS ASSISTED COT, SECURED WITH ALL STRAPS, MOVED TO AMBULANCE WITHOUT INCIDENT. PT MONITOED [facility]. RADIO REPORT CALLED [facility]. UPON ARRIVAL AT [facility] PT MOVED TO ER ROOM 9, PLACED IN BED WITH RAILS UP. PT CARE TRANSFERRED TO CONSTRUCTION SCHEDULER WITH VERBAL REPORT. Initial Vitals @04:45P: 107,R: 18,BP: 134/96,Pain: 0/10,GCS: 15,SpO2: 96,Revised Trauma: 12, @04:54P: 101,R: 18,BP: 123/93,Pain: 0/10,GCS: 15,SpO2: 99,Revised Trauma: 12, Assessments @04:37MENTAL:Person Oriented,Time Oriented,Place Oriented,Event Oriented,SKIN:HEENT:Eyes: Left Pupil: 4-mm,Eyes: Right Pupil: 4-mm,LUNG SOUNDS:ABDOMEN:PELVIS//GI:EXTREMITIES:Left Arm: No Abnormalities,Right Arm: No Abnormalities,Left Leg: No Abnormalities,Right Leg: No Abnormalities,PULSE:NEURO: Impression Alcohol use Procedures @04:37ALS AssessmentResponse: UnchangedSucceeded Timeline 04:21,Call Received 04:21,Psap Call 04:25,Dispatched 04:27,En Route 04:33,On Scene 04:36,At Patient 04:37,ALS Assessment,Response: UnchangedSucceeded, 04:45,BP: 134/96 M,PULSE: 107,RR: 18 R,SPO2: 96 Ox,ETCO2: ,BG: ,PAIN: 0,GCS: [facility] [address] [place] [address] EMS Patient Care Report Name: MARIAN HEDRICK Room #: REG EBONI Loly.#: [id number] Admission: 02/09/20 Attend Phys: Discharge: Date of : 55 Report #: [id number] 15, 04:46,Depart Scene 04:54,BP: 123/93 M,PULSE: 101,RR: 18 R,SPO2: 99 Ox,ETCO2: ,BG: ,PAIN: 0,GCS: 15, 04:57,At Destination 05:00,Transfer Patient 05:15,Call Closed Disclaimer v1.1 Copyright 2020 [employer] This EMS Care Summary contains data elements from the applicable legal record (which may be displayed differently). It is designed to provide pertinent information for the following purposes: continuity of care, clinical quality, and state data reporting. The complete legal record is available to ED staff and administrators of the receiving hospital in [employer]'s Patient Tracker. All data is provided "as is."
[2020-02-09 06:04] VITALS: BP 134/92
== END 2020-02-09 06:16 | disposition home or self-care (01) ==
LOC: ER 04:59
DX: F10.129 Alcohol abuse with intoxication, unspecified (principal); Y90.9 Presence of alcohol in blood, level not specified; R00.0 Tachycardia, unspecified; J44.9 Chronic obstructive pulmonary disease, unspecified; I10 Essential (primary) hypertension; F17.210 Nicotine dependence, cigarettes, uncomplicated; Z88.5 Allergy status to narcotic agent; Z87.440 Personal history of urinary (tract) infections

== ENCOUNTER 2020-07-02 21:11 | Emergency (ER) | payer OTHER | END 2020-07-02 22:17 | disposition left against medical advice (07) | LOC: ER 21:11 | DX: R07.89 Other chest pain (principal); R06.02 Shortness of breath; R42 Dizziness and giddiness; L29.9 Pruritus, unspecified; T68.XXXA Hypothermia, initial encounter; I10 Essential (primary) hypertension; J44.9 Chronic obstructive pulmonary disease, unspecified; F41.9 Anxiety disorder, unspecified; F32.9 Major depressive disorder, single episode, unspecified; F17.210 Nicotine dependence, cigarettes, uncomplicated; Z79.899 Other long term (current) drug therapy; Z79.82 Long term (current) use of aspirin; Z88.6 Allergy status to analgesic agent ==

== ENCOUNTER 2021-03-25 11:16 | Emergency (ER) | payer OTHER ==
[~2021-03-25] VITALS: Ht 162.6 cm; Wt 72.6 kg
--- NOTE | ~2021-03-25 | EMS ---
[address] [address] EMS Patient Care Report Name: MARIAN HEDRICK Room #: PRE M.R.#: [id number] Admission: Attend Phys: Discharge: Date of : 55 Report #: [id number] THIS REPORT FOR: //name// Report Transmitted: 03/25/2021 10:58 EMS Care Summary [place], [place] Incident [id number] @ 03/25/2021 10:39 Incident Location [address] [place] [address] Patient MARIAN HEDRICK Female, 66 Years 1955 Patient Address [address] [place] [id number] Patient History Alcohol Abuse,None Reported, Patient Allergies No known allergies, Patient Medications Famotidine, Folic acid, Quetiapine, None Reported, Chief Complaint SI Disposition Transported No Lights/[place] Dispatch Reason Psychiatric Problem/Abnormal Behavior/Suicide Attempt Transported To [facility] Narrative Arrived on the scene, with [employer], for a 66 y/o female that is sitting on her bed in her bedroom. Pt told her neighbor that she is going to jump off the balcony to kill herself. Neighbor called PD who then called us. Pt is anxious and [facility] [address] [place] [address] EMS Patient Care Report Name: MARIAN HEDRICK Room #: PRE EBONI Campo#: [id number] Admission: Attend Phys: Discharge: Date of : 55 Report #: [id number] angry. Pt is refusing to answer any questions and being belligerent towards us and PD. See Pt Assessment SI, Belligerent and Uncooperative See Flowchart. Pt said to arrest her if we are going to force her to the hospital. PD said that they would and Pt decided to get on the cot herself. Transported to the hospital with the Pt still refusing to answer questions. No other changes or incidents. Moved the Pt from the cot to the bed. Transferred care to receiving facility. Initial Vitals @11:00P: 110,R: 18,BP: 112/72,Pain: 0/10,GCS: 15,SpO2: 95,Revised Trauma: 12, @11:10P: 112,R: 20,BP: 106/74,Pain: 0/10,GCS: 15,SpO2: 95,Revised Trauma: 12, Assessments @10:53MENTAL:Event Oriented,Time Oriented,Person Oriented,Place Oriented,SKIN:HEENT:Head/Face: No Abnormalities,Eyes: No Abnormalities,Neck/Airway: No Abnormalities,LUNG SOUNDS:General: No Abnormalities,Left Upper: No Abnormalities,Right Upper: No Abnormalities,Left Lower: No Abnormalities,Right Lower: No Abnormalities,ABDOMEN:General: No Abnormalities,Left Upper: No Abnormalities,Right Upper: No Abnormalities,Left Lower: No Abnormalities,Right Lower: No Abnormalities,PELVIS//GI:No Abnormalities,EXTREMITIES:Left Arm: No Abnormalities,Right Arm: No Abnormalities,Left Leg: No Abnormalities,Right Leg: No Abnormalities,PULSE:Radial: 2+ Normal,NEURO:No Abnormalities, Impression Behavioral/psychiatric episode Procedures @10:53ALS AssessmentResponse: UnchangedSucceeded Timeline 10:38,Call Received 10:38,Dispatch Notified 10:39,Dispatched 10:40,En Route 10:50,On Scene 10:53,At Patient 10:53,ALS Assessment,Response: UnchangedSucceeded, 11:00,BP: 112/72 M,PULSE: 110,RR: 18 R,SPO2: 95 Ox,ETCO2: ,BG: ,PAIN: 0,GCS: 15, 11:08,Depart Scene [address] [address] EMS Patient Care Report Name: MARIAN HEDRICK Room #: PRE M.R.#: [id number] Admission: Attend Phys: Discharge: Date of : 55 Report #: [id number] 11:10,BP: 106/74 M,PULSE: 112,RR: 20 R,SPO2: 95 Ox,ETCO2: ,BG: ,PAIN: 0,GCS: 15, 11:25,At Destination 11:36,Call Closed Disclaimer v1.1 Copyright 2020 [employer] This EMS Care Summary contains data elements from the applicable legal record (which may be displayed differently). It is designed to provide pertinent information for the following purposes: continuity of care, clinical quality, and state data reporting. The complete legal record is available to ED staff and administrators of the receiving hospital in [employer]'s Patient Tracker. All data is provided "as is."
[2021-03-25 11:18] VITALS: BP 105/75
[2021-03-25 11:53] LABS: ANION GAP 9 mmol/L (7-16); BUN 16 mg/dL (7-18); CALCIUM 8.6 mg/dL (8.5-10.1); CHLORIDE 101 mmol/L (98-107); CO2 26 mmol/L (21-32); CREATININE 0.7 mg/dL (0.6-1.0); GLUCOSE 97 mg/dL (74-106); POTASSIUM 4.6 mmol/L (3.5-5.1); SODIUM 136 mmol/L (136-145)
[2021-03-25 11:54] LABS: MCHC 32.9 g/dL (28.0-37.0); RDW 24.7 % (10.5-14.5)
[2021-03-25 11:56] LABS: HEMATOCRIT 28.7 % (37.0-47.0); HEMOGLOBIN 9.4 gm/dL (12.0-15.0); MCH 23.4 pg (26.0-34.0); PLATELET COUNT 450 thou/uL (150-400); RBC 4.04 mil/uL (4.20-5.00); WBC 5.9 thou/uL (4.0-11.0)
[2021-03-25 11:59] LABS: DIRECT BILIRUBIN < 0.1 mg/dL (<0.1-0.2); SGOT 15 U/L (15-37); SGPT 15 U/L (30-65); TOTAL BILIRUBIN 0.1 mg/dL (0.2-1.0); TOTAL PROTEIN 6.9 g/dL (6.4-8.2)
[2021-03-25 12:11] LABS: SALICYLATE 2.9 mg/dL (2.8-20.0)
[2021-03-25 12:37] LABS: ABSOLUTE NEUTROPHILS 4.5 thou/uL (1.4-8.2); ANISOCYTOSIS 2+; PLATELET ESTIMATE NORMAL
[2021-03-25 14:19] LABS: AMP/METHAMP Negative (Negative); BARBITURATES Negative (Negative); BENZODIAZEPINES POSITIVE (Negative); COCAINE Negative (Negative); METHADONE Negative (Negative); OPIATES Negative (Negative); PCP Negative (Negative)
== END 2021-03-25 14:54 | disposition admitted as inpatient to this hospital (09) ==
LOC: ER 11:16
PROVIDERS: Nurse Practitioner
DX: R45.851 Suicidal ideations (principal); Z20.822 Contact with and (suspected) exposure to COVID-19; F41.9 Anxiety disorder, unspecified; F32.9 Major depressive disorder, single episode, unspecified; J44.9 Chronic obstructive pulmonary disease, unspecified; I10 Essential (primary) hypertension; F17.210 Nicotine dependence, cigarettes, uncomplicated; Z98.890 Other specified postprocedural states; Z79.82 Long term (current) use of aspirin; Z79.899 Other long term (current) drug therapy; Z88.6 Allergy status to analgesic agent

== ENCOUNTER 2021-03-25 15:36 | Inpatient (IN) | payer OTHER ==
[~2021-03-25] VITALS: Ht 162.6 cm; Wt 47.6 kg
[2021-03-25 16:34] VITALS: BP 115/79
[2021-03-25 16:58] LABS: CHOLESTEROL 186 mg/dL (<200); HDL CHOLESTEROL 78 mg/dL (>40); LDL CHOLESTEROL 75 mg/dL (<100); TC:HDL 2.4 Ratio (Not establshd); TRIGLYCERIDE 166 mg/dL (<150); VLDL 33 mg/dL (<40)
[2021-03-25 16:59] LABS: SERUM ASSESSMENT Clear
--- NOTE | 2021-03-25 17:35 | NUR ---
PATIENT IS AN 66 YEAR OLD FEMALE WHO ARRIVED TO THE SENIOR BEHAVIORAL UNIT FROM [facility] AT 1520. PRIOR TO ER ADMIT, PATIENT LIVED HOME ALONE. ACCORDING TO REPORT, PATIENT NEIGHBOURS CALLED 911 WHEN SHE WAS OBSERVED AT THE [facility] WITH ANXIETY ATTACK. REPORT ALSO STATES THAT WHEN OFFICERS ARRIVED, THEY FOUND PATIENT IN BED WATCHING MOVIE ON HER PHONE. PATIENT IS A & O X3-4, ABLE TO VOICE NEED. LCTA, RESP EVEN/UNLABORED, NO SOA/CYANOSIS NOTED. BS+X4, ABD SOFT, FLAT NON-TENDER TO TOUCH. PATIENT AMBULATE WITH ASSIST OF ROLLER WALKER, GAIT SLIGHTLY UNSTEADY. PATIENT DENIES SUICIDAL IDIEATION AT THIS TIME. PATIENT STATES SHE IS AN EVERYDAY DRINKER, AND "NEED HELP WITH ALCOHOL TREATMENT" SHE WAS PSITIVE FOR BENZO AND MARIJUANA UPON ARRIVAL TO THE ED. OTHER MEDICAL HISTORY PER REPORT INCLUDES ANXIETY, DEPRESSION, TOBACCO USE, HEPATITIS, UTI, SEPSIS, HTN, AND COPD. PATIENT STATES SHE IS LONELY, NO FAMILY, HER ONLY "FRIEND [facility]". PATIENT DENIES HAVING PHYSICAL PAIN AT THIS TIME. APPETITIE POOR, SHE CONSUMED LESS THAN 50% OF SUPPER, SHE DID DRINK A GLASS OF MILK UPON ARRIVAL TO THE UNIT. PATIENT IS CURRENTLY IN BED RESTING, NO SIGN OF ACUTE DISTRESS NOTED AT THIS TIME, WILL MONITOR FOR SAFETY.
[2021-03-25 19:37] VITALS: BP 105/75
--- NOTE | 2021-03-26 01:43 | NUR ---
PATIENT HAS BEEN IN ROOM AND IN BED ALL SHIFT. SHE STATES SHE JUST WANTS TO SLEEP THRU HER ETOH WITHDRAWL. SHE DENIES N/V AND PAIN. SHE DOES HAVE SLIGHT TREMORS IN HER HANDS. CIWA SCORE OF 4 AT BEGINNING OF SHIFT AND CONTINUE Q 4 HOURS. PATIENT AWOKE AFTER MIDNIGHT WANTING SOMETHING TO EAT. SHE REQUESTED [employer] CRACKERS WITH PEANUT BUTTER AND MILK. SHE ATE ABOUT 20% BEFORE ASKING TO HAVE HER BED READJUSTED TO GO BACK TO SLEEP. PATIENT IS A/0X4. SHE DID ALSO WAKE UP AT MIDNIGHT AND ASK FOR BOOZE. TOLD HER I HAD NO BOOZE FOR HER. SHE HAS BEEN CALM AND COOPERATIVE TONIGHT BUT HAS A SADNESS TO HER. SHE DENIES SI/HI AVH. BED IN LOW POSITION AND BED ALARM ON. WALKER BESIDE BED. PATIENT ROOM CLOSE TO NURSE'S STATION FOR OBSERVANCE. ROUTINE ROUNDS TO ASSESS SAFETY AND STATUS OF PATIENT.
[2021-03-26 04:06] LABS: GLYCOHEMOGLOBIN (HGB A1C) 5.2 % (4.8-5.6)
--- NOTE | 2021-03-26 04:23 | NUR ---
PATIENT AWOKE AND CALLED OUR FOR NURSE AT 0330. PATIENT WAS IN A PANIC AND AGITATED. HER EYES WERE BIG SAUCERS AND SHE KEPT SAYING LET ME GO HOME, I JUST WANT TO KILL MYSELF. SHE DID NOT HAVE A PLAN. SHE DEMANDED COFFEE AND WAS TOLD SHE COULD HAVE SOME AT 0630 AND I COULD GET HER SOME WATER FOR NOW. SHE DEMANDED CRACKERS WHICH SHE WAS GIVEN BUT DID NOT EAT. SHE WAS ASSISTED WITH WALKER TO THE BATHROOM TO VOID. PATIENT YELLED AT NURSE AND WAS INSISTANT THAT SHE USE THE PHONE MELY BECAUSE SHE HAD CALLS TO MAKE AND THINGS TO DO TODAY. SHE TOLD NURSE SHE WAS NOT STUPID AND SHE KNEW WHAT TIME IT WAS AND THAT SHE COULDN'T MAKES CALLS AT THIS HOUR WHEN I TOLD HER SHE WOULD HAVE TO WAIT TILL LATER AFTER BREAKFAST. SHE LAID BACK DOWN AFTER TAKING LORAZEPAM 1MG PO. SHE AWOKE AGAIN AT 0400 AND WANTED THE LIGHT ON. I SUGGESTED THAT SHE WRITE A LIST OF THINGS SHE FELT SHE NEEDED TO DO TODAY. PAPER AND PENCIL WERE GIVEN TO HER. SHE REQUESTED A MAGNIFYING GLASS FROM HER LOCKER. MONITORING PATIENT WITH IT FOR SAFETY AND WILL RETURN TO LOCKER SOON. PATIENT IS NOT AGITATED BUT STILL RESTLESS. PT TO START NICODERM PATCH THIS MORNING. BED IN LOW POSITION. WALKER AT BEDSIDE. BED ALARM IS ON. CONTINUED ROUNDS TO ASSESS SAFETY AND STATUS OF PATIENT.
--- NOTE | 2021-03-26 04:46 | NUR ---
PATIENT AWOKE AND CALLED OUT FOR NURSE. SHE WANTED TO GO OUT FOR A SMOKE. SHE ALSO WANTED THIS NURSE TO GO TO HER HOME AND GET HER CELL PHONE AND SWITCH TENDER. I EXPLAINED I WAS UNABLE TO DO THAT BUT WOULD BE GLAD TO APPLY A NICODERM PATCH. SHE SEEMED OKAY WITH THIS AND NICODERM PATCH WAS APPLIED TO LEFT ARM. IT WAS PLACED EARLY AND WAS DUE AT 0900. PATIENT BACK TO RESTING AND MAGNIFYING GLASS RETURNED TO HER LOCKER. PATIENT SAYS SHE'S NOT SUICIDAL NOW. CONTINUING TO MONITOR.
[2021-03-26 09:22] VITALS: BP 116/73
--- NOTE | 2021-03-26 10:52 | NUR ---
Psychosocial note: 66 yo female with a long hx. of ETOH addiction. Questionable marijuana use as there is THC in her labs. Patient presents as frail - uses a walker some of the time, but will also walk unimpeded. Pt. involved with
[2021-03-26 15:25] VITALS: BP 128/70
--- NOTE | 2021-03-26 16:09 | NUR ---
Alert and orientated X4. Demanding and anxious at times. Denies SI/HI during assessment but then after breakfast told CO FOUNDER that she was so anxious she wanted to commit suicide. Dr. Callejas and Yessi Arguello SW spoke with pt. Has periods where she is calm and pleasant and other times she is inappropriate refusing to eat when she doesn't get 10 salt and pepper packets she demanded. Slept for several hours without s/o distress. Ambulates with regular, shuffling gait with walker. Breath sounds clear. Reg HR auscultated. Color pink with brisk capillary refill and palpable peripheral pulses. Active bowel sounds over soft, flat abdomen. Large BM per toilet. Independent with voiding. Yellow urine per toilet. Received 1mg Ativan late afternoon d/t stating she felt anxious d/t potential group home placement. States she is very upset about possibility of not returning to her home.
--- NOTE | 2021-03-26 16:38 | NUR ---
Info continued - supportive friend - Sharlene Conrad. [phone]. She states that patient has been in trouble with the law for calling over 150x in the last year. Also had to surrender her dog for poor care of the animal. Has been homeless numerous times. Has no ID, only a copy of her passport.Her payee is Poornima Morrissey [phone] - states that she receives about $1400 a month in SS payments. Friend took patient to be admitted to a CD tx program in [place] 2 months ago and friend said that patient was back in before she was. Maldonado Antonio [phone] [address] her [address] appointed transactional attorney. Maldonado has been frustrated with Yessi as she has not followed through with the reccomendations of the court. States that patient will call 911 to get a ride to an ED, then get a taxi for a ride home and she uses that to buy ETOH on the way home. Yana Roa is her manager dental in [facility]. She will need a new one in [facility] [place] now. Yana's # is [phone]
[2021-03-26 19:43] VITALS: BP 125/83
[2021-03-26 19:45] VITALS: BP 125/83
--- NOTE | 2021-03-26 20:50 | H ---
[facility] [place] [address] HISTORY AND PHYSICAL Name: MARIAN HEDRICK Room #: 520A-A ADM IN M.R.#: [id number] Admission: 03/25/21 Attend Phys: Jacinto Callejas DO Discharge: Date of : 55 Report #: [id number] THIS REPORT FOR: cc: FAM - No family physician/PCP FAM - No family physician/PCP Jacinto Callejas DO ~ DATE OF SERVICE: 03/25/2021 INPATIENT PSYCHIATRIC EVALUATION ATTENDING PSYCHIATRIST: Jacinto Callejas DO LOAN WORKOUT OFFICER: Nickolas Pacheco M.D. REASON FOR ADMISSION: Suicidal ideation. CHIEF COMPLAINT: "I want treatment for my alcoholism." SOURCES OF INFORMATION: Interview with the patient in the ER and on the Geriatric Psychiatry Unit; affidavit from [place], [place] police or patrol park officer, Anjelica Nolen; past medical records including previous Geriatric Psychiatry hospitalization. HISTORY OF PRESENT ILLNESS: A 66-year-old female brought by [place] Police and EMS. Apparently, officers responded around 10:20 this morning to a suicidal libertarian. The subject calling, patient reported that she was having a panic attack and she wanted to hurt herself by jumping out of her window. Upon arrival, the contact was made with the patient who is in her bed in the bedroom, smoking. The patient stated that she had anxiety because it was the end of the month and she was running out of money. The patient admitted that she wanted to jump from a window to commit suicide, but she found her antianxiety medicine and took it, but was adamant about not wanting to go to the hospital and stated that she no longer "felt suicidal." Additional information was the door to her apartment was propped open with a towel and announced ourselves. Police entered her apartment. She was in bed smoking cigarette, full debra was in bed with her. The patient was fixated on her show she was watching on her cell phone. She refused to turn it off or turn down the volume when I asked so that I could speak to her, the patient said that she had anxiety, and when I asked her, then she admitted that she was suicidal because she had no money and it was the end of the month. The patient said she had not eaten in 2 days. The patient did not want to go to the hospital and she said she had taken her medication. She was no longer suicidal. The patient was transported by EMS to [facility]. Information from the ER today, the patient did state in the ER, she feels suicidal because she is lonely. She states she drinks a pint of vodka daily. She last drank this morning, had a few sips. [facility] [address] [place] [address] HISTORY AND PHYSICAL Name: MARIAN HEDRICK Room #: 520A-A ADM IN M.R.#: [id number] Admission: 03/25/21 Attend Phys: Jacinto Callejas DO Discharge: Date of : 55 Report #: [id number] PAST MEDICAL HISTORY: Includes hepatitis, unclear if it is viral or alcoholic; severe osteoarthritis of the hips; UTI; sepsis; chronic T-spine compression fracture; history of a seizure; COPD; insomnia; left femur fracture; hypertension. PSYCHIATRIC HISTORY: Includes anxiety, depression, delirium in the past. HOME MEDICINES: From the ER were noted to be amlodipine, thiamine, sucralfate, pantoprazole. Reported medications include cyanocobalamin, sertraline, atorvastatin, clopidogrel, gabapentin, hydroxyzine, trazodone, ranitidine, ropinirole, aspirin, cholecalciferol, folic acid, losartan, magnesium, pyridoxine. On interview with the patient, she states she has not taken any scheduled medications recently. ALLERGIES: HYDROCODONE. SOCIAL HISTORY: Smoking is yes, I believe, 1 pack a day. She is positive for THC, but denies recreational drug use. REVIEW OF SYSTEMS: From the ER: CONSTITUTIONAL: Denies fever, chills, malaise, or unexplained weight changes. EYES: Denies eye pain, visual change, or discharge. HENT: Denies hearing changes, ear drainage, ear infections, ear pain, neck pain or neck stiffness. RESPIRATORY: Denies cough, shortness of breath, hemoptysis, respiratory distress. CARDIOVASCULAR: Denies chest pain, dyspnea on exertion, or edema. GASTROINTESTINAL: Denies abdominal pain, nausea, vomiting or diarrhea. Denies any melena or hematochezia. GENITOURINARY: Denies burning, frequency, dysuria. Denies hematuria. MUSCULOSKELETAL: Denies back pain, joint pain, muscle weakness or myalgias. SKIN: Denies rash. NEUROLOGIC: Denies weakness, headache, loss of consciousness. PSYCHIATRIC: Positive SI. Otherwise, 10-point review of systems negative. Weight is 72.58 kilos. I agree with the ER TERMINAL SUPERVISOR, the patient has a chronically ill-appearance. LABORATORY DATA: Significant for sodium 136, potassium 4.6, chloride 101, bicarbonate 26, anion gap 9, BUN 16, creatinine 0.7, estimated GFR 84, glucose 97, calcium 8.6, total bilirubin 0.1, direct bilirubin less than 0.1, AST 15, ALT 15, alkaline phosphatase 104, total protein 6.9, albumin 3.0. White count 5.9, H and H 9.4 and 28.7, platelet count 450, slightly elevated. She has 2+ [facility] [address] [place] [address] HISTORY AND PHYSICAL Name: MARIAN HEDRICK Room #: 520A-A ADM IN [facility].#: [id number] Admission: 03/25/21 Attend Phys: Jacinto Callejas DO Discharge: Date of : 55 Report #: [id number] anisocytosis. COVID-19 Pearce test is negative. Urine drug screen positive for benzodiazepines and THC. Serum alcohol level was less than 10. I do not remember this patient while did have her on the [facility] in 06/2019. At that time, it was depression, suicidal ideation, alcohol intoxication. She had been brought in by her case managers. The patient called 911. I do not know if this is still her caregiver in the past, she has had a caregiver, Sharlene Conrad at [phone]. Past medication trials have included Prozac and Atarax. ADDITIONAL PAST SURGICAL HISTORY: Includes chest tube insertion in 09/2010, ankle fracture in 2011. All her family is . Does not have children. There was smoking in the past when I asked in 06/2019 it was [id number]-[id number] packs per day, at least [id number]-[id number] history. Breast cancer in a sister, lung cancer in sister and maternal uncle. Hypertension in father. Coronary artery disease in father, stroke. PHYSICAL EXAMINATION: VITAL SIGNS: Today, pulse ox 93%, BP 105/75, temperature 36.6, pulse 110, respirations 24. GENERAL: Unkempt female wearing a shirt and scrubs or Depends. MENTAL STATUS EXAMINATION: This is a well-developed, frail, undernourished. BMI 15.5 kg, height 160.56 cm female. Attention fair. Concentration limited. Her speech loud at times, normal rate. Thought process: Linear and goal directed. Thought content focused on her suicidality and seeking benzodiazepines, I believe. Endorsed suicidal ideation. Denied homicidal ideation. No auditory, visual or tactile hallucinations. Memory not formally tested. She was oriented to month, day, not date, but the year and knew the place. Insight, judgment impaired. Fund of knowledge well below average. Mood and affect was restricted, depressed, congruent, dysphoric. FORMULATION: A 66-year-old female presenting via the 911 system for suicidal ideation. The patient is a pint a day drinker. Last psychiatric hospitalization, I know of, is 06/2019, though she has a number of ED visits, I understand, related to alcohol intoxication. DIAGNOSES: At this time, unspecified depression; substance use disorder for alcohol, severe degree, medically. The patient is malnourished. There are a number of other morbidities listed in her chart, but I am not sure how active they are. PLAN: The patient is admitted voluntarily to [facility] at [facility]. Hospitalist is consulted. We will start her on the [address] [address] HISTORY AND PHYSICAL Name: MARIAN HEDRICK Room #: 520A-A [facility] IN ..#: [id number] Admission: 03/25/21 Attend Phys: Jacinto Callejas, DO Discharge: Date of : 55 Report #: [id number] protocol for alcohol withdrawal. Estimated length of stay five to ten days. Since she is suicidal, she cannot leave AMA. I will see patient in the morning. Time spent on this case at least 45 minutes. STRENGTHS: She is insured, lives near the hospital. WEAKNESSES: lives in isolation, age factor, chronic alcoholism. <ELECTRONICALLY SIGNED> By: Jacinto Callejas DO 03/26/212049 1703 184 Jacinto Callejas DO /nt
--- NOTE | 2021-03-26 21:57 | NUR ---
Assumed care on 03/26/21 @ 1900, in her room in bed, awakened to voice, reports anxiety level of 8/10. When asked if the Lorazepam that she took @ 1820 helped her anxiety, she responded that it did not give her relief of anxiety. PRN Tylenol provided and will be giving Lorazepam when it becomes timely. New order obtained for Trazadone 25 @ and may repeat in one hour if insomnia continues. This will be provied. Retired to , but is awake at this writing. Will continue to monitor for safety and comfort.
[2021-03-27 09:10] VITALS: BP 118/77
--- NOTE | 2021-03-27 12:38 | NUR ---
Sleeping soundly when awakened for assessment. Orientated X4, states she wants to see an eye doctor d/t drainage from R eye. Denies pain, SI/HI/hallucinations. States she is anxious d/t changes in her life. Breath sounds clear. Reg HR auscultated. Color pink with brisk capillary refill and palpable peripheral pulses. Yellow urine per toilet. Active bowel sounds over soft, flat abdomen. States last BM was yesterday. Ambulates with regular, steady gait with walker.
--- NOTE | 2021-03-27 14:22 | NUR ---
Received call from Yana Roa with [facility] - she is Yessi's lead case manager. Discussed Yessi's need to set up treatment before [address] Met with Yessi after call and she is willing to go to treatment. She wants [facility] or [facility]. Hall Clerk did call [facility] and left message with patient care coordinator to find out details of intake process before patient calls. Waiting space systems operations superintendent back. Patient states that she will require an in-home caregiver because she cannot walk or cook. She wants to make certain that Medicare will pay for the services. She states again that she has no money. Reminded her that her payee said yesterday that she does receive $1400 a month in SS benefits. Payee is working on getting patient a debit card so she will have spending money in a few weeks. Patient not satisfied with these answers and stated that "I am not easy to talk to" then got up and left the room.
[2021-03-27 14:30] VITALS: BP 145/85
--- NOTE | 2021-03-27 15:20 | EKG ---
[address] [address] ELECTROCARDIOGRAM REPORT Name: MARIAN HEDRICK Room #: [facility] ADM IN M.R.#: [id number] Admission: 03/25/21 Attend Phys: Jacinot Callejas DO Discharge: Date of : 55 Report #: [id number] [facility] Test Date: 2021-03-27 Test Time: 15:17:10 Pat Name: MARIAN HEDRICK Department: Room: [facility] Gender: F Hide Cleaner: FSCHWALBALBINA : 1955 Requested By: Nickolas Pacheco Order Number: [id number] MD: Tay Liriano Measurements Intervals [place] Rate: 74 P: 78 OR: 127 QRS: 73 QRSD: 85 T: 74 QT: 392 QTc: 435 Interpretive Statements Sinus rhythm Compared to ECG 09/04/2019 16:54:22 No significant changes Electronically Signed On 03-27-2021 15:20:10 CDT by Tay Liriano [email or web address] <ELECTRONICALLY SIGNED> By: Tay Liriano MD, [facility] 03/27/21 1520 1517 16 Tay Liriano MD, FACC /EPI
--- NOTE | 2021-03-27 19:51 | NUR ---
Assumed care on 03/27/21 @ 1900, lying in bed, awakened to voice, came out to the day room for snack time. Will continue to monitor for safety and comfort.
[2021-03-27 20:17] VITALS: BP 157/103
--- NOTE | 2021-03-28 09:29 | NUR ---
ANXIOUS AND DEMANDING THIS AM-INTERRUPTING SHIFT CHANGE REPORT MULTIPLE TIMES YELLING LOUDLY FOR HER ANXIETY MEDICATIONS.VISTARIL 25 MG PO PRN AT 0710-2-3 MINUTES LATER DEMANDIMG A CUP OF COFFEE AND TV BE TURNED ON. AT DESK MULTIPLE TIMES AFTER BREAKFAST DEMANDING TO SPEAK WITH A CARBURETOR REPAIRER IMMEDIATLY. INFORMED SEVERAL TIMES THAT THIS RN HAD LEFT A MESSAGE AND SW WOULD CHECK IN SOON POSSIBLETO WHICH SHE REPLIES "THEY PROBABLY WON'T SEE ME UNTIL 9 OCLOCK TONIGHT THIS WHOLE HOTEL OR WHATEVER IT IS IS TERRIBLE" GAIT STEADY WITH USE OF ROLLER WALKER. CYSPHORIC MOOD. DENIES SI/SH/HI
[2021-03-28 10:39] VITALS: BP 157/103
[2021-03-28 12:24] VITALS: BP 103/59
--- NOTE | 2021-03-28 16:55 | NUR ---
sheet metal production worker visited with the pt. upon the pt.'s request. The pt. wants a caregiver to help in her apartment at [facility]. The pt. reported needing help with shopping, laundry and other daily tasks. The social service liaison asked the pt. if she had any family. The pt. stated she does not have family. She further reported to having a friend, Sharlene Conrad, who she was extremely close with. Sharlene is moving to [place], [place] which she explains is the reason why she now needs a new caregiver. The social service liaison explained to the pt. that she will have appropriate supports in place whereever she is discharged to. The pt. was adamant that she was being discharged Tuesday. The pt. inquired about a magnifying glass to help with coloring and new glasses.
[2021-03-28 19:31] VITALS: BP 115/73
--- NOTE | 2021-03-29 04:28 | NUR ---
03-28-21 CARE TRANSFERRED 1899. LATER PT AAOX4, VSS, RR EVEN AND NONLABORED ON RA. PT DENIES SI/HI AND PAIN. PT PRESENTS ANXIOUS BUT REMAINS CALM AND COOPERATIVE. DURING MEDICATION ADMIN PT HAD NO DIFFICULTIES TAKING MEDICATION WHOLE WITH WATER. PT REPORTED THIS UNIT IS NOT A GOOD FIT FOR HER, SHE WANTS TO GO TO A REHAB HOUSE. THAT IT HAS HELPED IN THE PAST AND PT REPORTS SHE HAS BEEN SEVERAL TIMES OVER THE YEARS. PT BED WAS ADJUSTED FOR COMFORT, LOWEST POSITION, LOCKED AND ALARM ON. PT WILL CONTINUE TO BE MONITOR PER [facility] PROTOCOL.
[2021-03-29 09:23] VITALS: BP 153/92
--- NOTE | 2021-03-29 12:33 | NUR ---
PATIENT CARE ASSUMED AT 0700 - IN DINING AREA PLAYING CARDS WITH PEER. ALERT AND ORIENTED X 4 - NO PAIN OR DISCOMFORT WHEN ASSESSED. LUNGS CLEAR ON AUSCULTATION AND HEART RATE STRONG AND STEADY. STATED HAD BOWEL MOVEMENT FEW DAYS AGO. NO DIFFICULTY VOIDING. AMBULATORY AND SELF CARE. MAKES NEEDS KNOWN. STATES READY TO DISCHARGE TO REHAB PLACE FOR CONTINUED CARE. COMPLIANT WITH MEDICATIONS. CALM AND PLEASANT. VITAL SIGNS STABLE WHEN TAKEN. WILL CONTINUE TO MONITOR FOR SAFETY AND ADDRESS ANY CONCERNS ACCORDINGLY.
[2021-03-29 20:01] VITALS: BP 120/73
--- NOTE | 2021-03-30 03:30 | NUR ---
03-29-21 CARE TRANSFERRED 1899 OBSERVED PT SITTIING ON BUNK IN ROOM. LATER PT AAOX4, VSS, RR EVEN AND NONLABORED ON RA, PT DENIES SI/HI AND PAIN AT THIS TIME. PT PRESENTS ANXIOUS AND REPORTS THAT SHE IS FEELING OVERWHELMED AND IS WORRYING ABOUT GOING HOME AND SHE HAS NO TRANSPORTATION, NO PHONE AND SHE REPORTS SHE IS ALL OUT OF MONEY, FOR SHE PAID FOR A FULL YEAR AT HER APARTMENT. PT WAS REASSURED AND SOLUTION AND NOT EVERYTHING NEEDS TO BE COMPLETED AT ONE TIME. PT HAS SOME HOPELESSNESS WITH ANXIETY. DURING MEDICATION ADMIN PT HAD NO DIFFICULTIES, PT REPORTED FEELING NAUSEATED AND ANXIETY PT PRN MEDICATION ADMIN. PT HAD NO DIFFICULTIES TAKING MEDICATION WHOLE WITH WATER. LATER NOTED PT RESTING WITH EYES CLOSED LEFTSIDE LYING. PT WILL CONTINUE TO BE MONITOR PER [facility] PROTOCOL.
[2021-03-30 06:44] LABS: HEMATOCRIT 31.4 % (37.0-47.0); HEMOGLOBIN 9.9 gm/dL (12.0-15.0); MCH 22.7 pg (26.0-34.0); MCHC 31.5 g/dL (28.0-37.0); MCV 72.2 fL (80.0-100.0); RBC 4.36 mil/uL (4.20-5.00); RDW 25.2 % (10.5-14.5); WBC 8.7 thou/uL (4.0-11.0)
[2021-03-30 06:49] LABS: INR 0.93; PROTIME 10.2 Seconds (10.5-12.1)
[2021-03-30 06:59] LABS: CALCIUM 9.2 mg/dL (8.5-10.1); CREATININE 0.7 mg/dL (0.6-1.0); PHOSPHORUS 3.6 mg/dL (2.6-4.7); POTASSIUM 4.2 mmol/L (3.5-5.1)
[2021-03-30 09:17] VITALS: BP 102/68
[2021-03-30 09:30] LABS: ABSOLUTE NEUTROPHILS 4.3 thou/uL (1.4-8.2); PLATELET COUNT 308 thou/uL (150-400)
[2021-03-30 09:31] LABS: ANISOCYTOSIS 2+; HYPOCHROMASIA 1+; MICROCYTES 2+; PLATELET ESTIMATE NORMAL
[2021-03-30 09:32] VITALS: BP 102/68
--- NOTE | 2021-03-30 10:25 | NUR ---
1025 assumed care of patient from overnight nurse. pt alert and oriented times 4. pt lungs to clear. abdoment soft, bowel sounds present. pt concerned that she is not getting everything that she needs on this floor. pt asked what she is concerned with, but is not able to enumerate. pt w no behavior issues at this time. pt took medications whole without issues. pt ate breakfast w no issues. will continue to monitor pt for safety and behaviors.
[2021-03-30 20:22] VITALS: BP 106/68
--- NOTE | 2021-03-31 04:00 | NUR ---
03-30-21 CARE TRANSFERRED 1899 OBSERVED PT SITTING ON CHAIR IN DAY ROOM. LATER PT AAOX4, VSS, RR EVEN AND NONLABORED ON RA, PT PRESENTS ANXIOUS, BUT REMAINS CALM AND COOPERATIVE. PT REPORTS SHE IS HAPPY ABOUT GOING HOME, BUT SHE ALSO IS ANXIOUS BECAUSE SHE HAS LIMITED FUNDS. PT DENIES PAIN AND SI/HI. DURING MEDICATION ADMIN PT HAD NO DIFFICULTIES TAKING WHOLE WITH WATER. LATER NOTED PT RESTING WITH EYES CLOSED, PT WILL CONTINUE TO BE MONITOR PER [facility] PROTOCOL.
[2021-03-31 07:46] VITALS: BP 93/59
--- NOTE | 2021-03-31 08:21 | NUR ---
Patient to D/C this morning to her apt. BETTY Zapata @ [facility], friend Sharlene Conrad, Gogo Alvarez and [facility] sourcing coordinator Christina aware of the D/C. Will fax d/c info to [facility] for follow up until switch to [place] Case Management can be obtained. Patient unhappy as she feels she should have a caregiver help her in her apt. This is not a service that she qualifies for.
[2021-03-31] MEDS ORDERED: NEURONTIN 300M300 M2 PO (08:35)
[2021-03-31] MEDS ORDERED: TRAZODONE HCL50 MG PO (08:35)
[2021-03-31] MEDS ORDERED: HYDROXYZINE HCL50 MG PO (08:37)
[2021-03-31] MEDS ORDERED: PRENATAL PO (08:41)
[2021-03-31] MEDS ORDERED: NICODERM CQ1 EAC1 TRANSDERM (08:48)
--- NOTE | 2021-03-31 09:58 | NUR ---
PATIENT CARE ASSUMED AT 0700 - AFFECT ANXIOUS AND MOOD IRRITABLE. ARGUMENTATIVE WITH STAFF AND THROWING PROFANITIES WHEN NEEDS NOT BEING MET. STAFF HAS HAD TO REDIRECT SEVERAL TIMES. COMPLIANT WITH MEDICATIONS. CONCERNED WITH MANY ISSUES ONCE DISCHARGED AND ADVISED OF ALL INFOMRATION FOR CARE AND HELP INCLUDED IN DOCUMENTATION. PATIENT ATE VERY WELL FOR BREAKFAST. STATED MUST EAT ALOT DUE TO NOT HAVING FOOD AT HER APARTMENT. BOTH MARIAN DIRECTOR AND DR. GAR MET WITH PATIENT AND GIVEN ALL INFORMATION NEEDED FOR OUTSIDE SUPPORT. PATIENT STATED NO PAIN DISCOMFORT WHEN ASSESSED. PATIENT DISCHARGING AT 10:30 VIA TAXI WITH VOUCHER AND ARRANGED BY STAFF. VITALS WERE 93/59 THIS MORNING WHEN TAKEN. PATIENT AGREEABLE AND READY TO DISCHARGE.
[2021-03-31 10:05] VITALS: BP 93/59
--- NOTE | 2021-03-31 10:24 | NUR ---
PATIENT DISCHARGED HOME VIA TAXI WITH VOUCHER SUPPLIED. SIGNED DISCHARGE DOCUMENTATION - GIVEN ALL INFORMATION FOR OUTSIDE SUPPORT. ESCORTED DOWN WITH MARIAN DIRECTOR AND STAFF VIA WHEELCHAIR. PATIENT PLEASANT AND APPRECIATIVE OF CARE GIVEN AND VOICED THIS TO STAFF SHE DEPARTED AT 10:15 AM ON TUESDAY - 03/31/21. COPIES OF DOCUMENTATION SUPPLIED TO PATIENT WELL.
--- NOTE | 2021-03-31 11:03 | NUR ---
Patient discharged to home via taxi. Patient provided with all aftercare information. Refused any info on smoking cessation. Patient instructed to reach out to [facility] pillowcase sewer for f/u. Also provided the information on [facility] case management. faxed all information to [facility] and to [facility]. [facility] may have an opening tomorrow @ their [facility]. Shared this info with Nicola.
--- NOTE | 2021-04-01 20:56 | D ---
[facility] [place] [address] DISCHARGE SUMMARY Name: MARIAN HEDRICK Room #: 520A-A DIS IN M.R.#: [id number] Admission: 03/25/21 Attend Phys: Jacinto Callejas DO Discharge: 03/31/21 Date of : 55 Report #: [id number] THIS REPORT FOR: cc: FAM - No family physician/PCP FAM - No family physician/PCP Jacinto Callejas DO ~ DATE OF SERVICE: 03/31/2021 INPATIENT PSYCHIATRIC DISCHARGE SUMMARY ATTENDING PSYCHIATRIST: Jacinto Callejas DO EXPERIMENTAL MECHANIC: Nickolas Pacheco MD. DISCHARGE DIAGNOSES: Unspecified anxiety, alcohol use disorder, moderate to severe degree, tobacco use disorder. MEDICAL COMORBIDITIES: Vitamin B12 deficiency, chronic anemia, hypertension, chronic low back pain, COPD. The patient is discharging to her home at [facility]. Aftercare for this patient is difficult to arrange given her recent change in residency and history of noncompliance. She refused smoking cessation. The patient was instructed to reach out to [place], [place], returned case inspector, Yana Yun. Information was faxed to [facility]. Johnathan has a women and children's inpatient program. The patient needs to avoid alcohol and illicit drugs. I did provide Nicoderm patch prescription. DISCHARGE MEDICATIONS: Otherwise, regular diet, gabapentin 300 mg oral 3 times a day, Rx given for 30-day supply #90; trazodone 75 mg oral at bedtime p.r.n. for insomnia, Rx given for #15; hydroxyzine 50 mg q. 6 hours p.r.n. anxiety, Rx given for #20; vitamin one oral tab daily, Nicoderm patch for one box. The patient is recommended also to continue thiamine 100 mg, cholecalciferol 1000 International Units oral daily folic acid 1 mg oral daily for supplementation. She is to see her primary care physician in 1 month. LABORATORY DATA: This admission: Hematology: Hemoglobin and hematocrit 10.9 and 31.4, white count 9.7, platelet count 308. Coagulation: PT 10.2, INR 0.9. Chemistry: Sodium 134, potassium 4.2, chloride 102, bicarbonate 25, anion gap 7, BUN 20, creatinine 0.7, estimated GFR 84, glucose 78. A1c 5.2, calcium 9.2, phosphorus 3.6. Troponin high sensitivity 6, reference range is 4-50 ng/l per liter. TSH 3.73. Lipids this admission; triglycerides 166, cholesterol 186, LDL 75, HDL 78. No imaging this admission. [address] [address] DISCHARGE SUMMARY Name: MARIAN HEDRICK Room #: [facility] IN M.R.#: [id number] Admission: 03/25/21 Attend Phys: Jacinto Callejas, Discharge: 03/31/21 Date of : 55 Report #: [id number] REASON FOR ADMISSION: Back on 03/25, a 66-year-old female brought by a female police and EMS. They responded to a report of a suicidal green party. She was resistant to coming in; however, they are bringing her to the ER. The patient was found to be in alcohol withdrawal and concerns for her safety. HOSPITAL COURSE: She was put on the CIWA protocol for about 48 hours, had a couple of odd events, but otherwise uneventful, alcohol withdrawal. During hospitalization, we spoke with her document review attorney and returned case inspector from [facility]. The patient has been noncompliant with court orders following a false public alarm charge. [facility] mental status examination was performed. She scored 17/28, so she is on the borderline for mild cognitive impairment versus mild dementia. I discussed with her and her staff attorney and they felt she would have trouble absorbing the program in a 28-day program. The patient stated she wished she had a caregiver. She only has Medicare. She does not have Medicaid. She does not have a DPOA or guardian. Ideally, she would need guardianship, but her case is not critical enough to keep her in the hospital for guardianship. Given lack of great options, we are going to go ahead and discharge her to her apartment. No SI, HI on date of discharge. PHYSICAL EXAMINATION: VITAL SIGNS: Temperature 36.1, pulse 81, respirations 19, BP 93/59. GENERAL: Wearing glasses. MUSCULOSKELETAL: Normal gait and station. MENTAL STATUS EXAMINATION: This is a well-developed, slightly unkempt female, appearing stated age. Attention fair. Concentration limited. Speech normal rate, volume, and tone. Thought process: Linear and goal directed. Thought content: Focused on her legal problems. Denied SI, HI. Denied auditory, visual, or tactile hallucinations. Memory not formally tested. Mood and affect was congruent, okay, calm Insight and judgment are fair to limited. Fund of knowledge at least average range. Prognosis for this patient is quite guarded due to her history of noncompliance, her legal problems and her cognitive concerns. <ELECTRONICALLY SIGNED> By: Jacinto Callejas, 04/01/212055 16 2048 Jacinto Callejas, DO /nt
== END 2021-03-31 10:27 | disposition home or self-care (01) | DRG 880 ==
LOC: SBH
PROVIDERS: Internal Medicine; ADMIT Psychiatry & Neurology Psychiatry; ATTEND Psychiatry & Neurology Psychiatry
DX: F41.9 Anxiety disorder, unspecified (principal); R45.851 Suicidal ideations; F29 Unspecified psychosis not due to a substance or known physiological condition; D64.9 Anemia, unspecified; I10 Essential (primary) hypertension; G89.29 Other chronic pain; M54.5 Low back pain; F32.9 Major depressive disorder, single episode, unspecified; F10.20 Alcohol dependence, uncomplicated; Y90.9 Presence of alcohol in blood, level not specified; K73.9 Chronic hepatitis, unspecified; R07.9 Chest pain, unspecified; F17.210 Nicotine dependence, cigarettes, uncomplicated; G40.909 Epilepsy, unspecified, not intractable, without status epilepticus; E53.8 Deficiency of other specified B group vitamins; M16.0 Bilateral primary osteoarthritis of hip; J44.9 Chronic obstructive pulmonary disease, unspecified; G47.00 Insomnia, unspecified; Z20.822 Contact with and (suspected) exposure to COVID-19; Z79.899 Other long term (current) drug therapy; Z88.8 Allergy status to other drugs, medicaments and biological substances
CPT/HCPCS: 10880

== ENCOUNTER 2021-04-07 17:24 | Emergency (ER) | payer OTHER ==
[~2021-04-07] VITALS: Ht 160 cm; Wt 44.0 kg
--- NOTE | ~2021-04-07 | EMS ---
[address] [address] EMS Patient Care Report Name: MARIAN HEDRICK Room #: DEP EBONI Campo#: [id number] Admission: 04/07/21 Attend Phys: Discharge: 04/07/21 Date of : 55 Report #: [id number] THIS REPORT FOR: //name// Report Transmitted: 04/08/2021 08:51 EMS Care Summary [place], [place]/[facility] Incident [id number] @ 04/07/2021 16:40 Incident Location [address] [place] [address] Patient MARIAN HEDRICK Female, 66 Years 1955 Patient Address [address] [place] [address] Patient History Behavioral/Psychiatric Disorder,Alcohol Abuse, Patient Allergies No known allergies, Patient Medications Thiamine, Famotidine, Quetiapine, Folic acid, Chief Complaint intox Disposition Transported No Lights/[place] Dispatch Reason Unknown Problem/Person Down Transported To [facility] Narrative Arrived to find pt smoking a cigarette in bed with [employer] in room. Pt stated she thinks she overdosed on her "sleeping pills" (seroquel) and "might ". Pt hands bottle to EMS and states she took several an hour ago to go to sleep, not [address] [address] EMS Patient Care Report Name: MARIAN HEDRICK Room #: DEP ER Jahaira#: [id number] Admission: 04/07/21 Attend Phys: Discharge: 04/07/21 Date of : 55 Report #: [id number] to hurt or kill herself. Pt was very hostile and aggressive with EMS and [employer]. Pt was uncooperative. Pt placed on cot. Pt would rip her mask of and continually take off her seatbelts so she could sit leaning all the way forward with her head in her lap. Unable to get 2 sets of vitals. Pt transported to closest hospital. Care to RN, rm 2. Initial Vitals @17:08 @17:09P: 135,R: 18,BP: 92/62,Pain: 0/10,GCS: 15,Glucose: 158,CO: 7,SpO2: 96,Revised Trauma: 12, Assessments @17:00MENTAL:Person Oriented,Place Oriented,Event Oriented,Time Oriented,SKIN:HEENT:Head/Face: No Abnormalities,Eyes: No Abnormalities,Neck/Airway: No Abnormalities,LUNG SOUNDS:General: No Abnormalities,Left Upper: No Abnormalities,Right Upper: No Abnormalities,Left Lower: No Abnormalities,Right Lower: No Abnormalities,ABDOMEN:General: No Abnormalities,Left Upper: No Abnormalities,Right Upper: No Abnormalities,Left Lower: No Abnormalities,Right Lower: No Abnormalities,PELVIS//GI:No Abnormalities,EXTREMITIES:Left Arm: No Abnormalities,Right Arm: No Abnormalities,Left Leg: No Abnormalities,Right Leg: No Abnormalities,PULSE:NEURO:Slurred Speech, Impression Overdose - Alcohol Procedures @17:00ALS AssessmentResponse: UnchangedSucceeded Timeline 16:37,Call Received 16:37,Dispatch Notified 16:40,Dispatched 16:41,En Route 16:54,On Scene 16:59,At Patient 17:00,ALS Assessment,Response: UnchangedSucceeded, 17:08,BP: / M,PULSE: ,RR: R,SPO2: Ox,ETCO2: ,BG: ,PAIN: ,GCS: , 17:09,BP: 92/62 M,PULSE: 135,RR: 18 R,SPO2: 96 Ox,ETCO2: ,B,PAIN: 0,GCS: 15, 17:10,Depart Scene 17:15,At Destination 17:24,Call Closed Disclaimer v1.1 Copyright 2020 [employer] [address] [address] EMS Patient Care Report Name: MARIAN HEDRICK Room #: DEP Jahaira#: [id number] Admission: 04/07/21 Attend Phys: Discharge: 04/07/21 Date of : 55 Report #: [id number] This EMS Care Summary contains data elements from the applicable legal record (which may be displayed differently). It is designed to provide pertinent information for the following purposes: continuity of care, clinical quality, and state data reporting. The complete legal record is available to ED staff and administrators of the receiving hospital in [employer]'s Patient Tracker. All data is provided "as is."
[~2021-04-07 17:24] MED LIST changes: +NEURONTIN 300M300 M2 PO; +NICODERM CQ1 EAC1 TRANSDERM; +PRENATAL PO
[2021-04-07 17:29] VITALS: BP 127/76
[2021-04-07 18:03] LABS: HEMATOCRIT 31.6 % (37.0-47.0); HEMOGLOBIN 9.9 gm/dL (12.0-15.0); MCH 22.4 pg (26.0-34.0); MCHC 31.2 g/dL (28.0-37.0); MCV 71.8 fL (80.0-100.0); RBC 4.4 mil/uL (4.20-5.00); RDW 24.6 % (10.5-14.5); WBC 4.2 thou/uL (4.0-11.0)
[2021-04-07 18:29] LABS: CREATININE 0.8 mg/dL (0.6-1.0); POTASSIUM 3.5 mmol/L (3.5-5.1)
[2021-04-07 18:35] LABS: ALBUMIN 3.5 g/dL (3.4-5.0); TOTAL BILIRUBIN 0.3 mg/dL (0.2-1.0); TOTAL PROTEIN 7.5 g/dL (6.4-8.2)
== END 2021-04-07 18:22 | disposition home or self-care (01) ==
LOC: ER 17:24
PROVIDERS: Physician Assistant
DX: F41.9 Anxiety disorder, unspecified (principal); F32.9 Major depressive disorder, single episode, unspecified; J44.9 Chronic obstructive pulmonary disease, unspecified; I10 Essential (primary) hypertension; F17.210 Nicotine dependence, cigarettes, uncomplicated; Z88.5 Allergy status to narcotic agent

== ENCOUNTER 2021-04-14 08:47 | Emergency (ER) | payer OTHER ==
[~2021-04-14] VITALS: Ht 160 cm; Wt 59.0 kg
--- NOTE | ~2021-04-14 | EMS ---
[address] [address] EMS Patient Care Report Name: MARIAN HEDRICK Room #: DEP EBONI Campo#: [id number] Admission: 04/14/21 Attend Phys: Discharge: 04/14/21 Date of : 55 Report #: [id number] THIS REPORT FOR: //name// Report Transmitted: 04/15/2021 12:27 EMS Care Summary [place], [place]/[facility] Incident [id number] @ 04/14/2021 07:58 Incident Location [address] [place] [address] Patient MARIAN HEDRICK Female, 66 Years 1955 Patient Address [address] [place] [address] Patient History Behavioral/Psychiatric Disorder,Alcohol Abuse, Patient Allergies No known allergies, Patient Medications Quetiapine, Folic acid, Thiamine, Famotidine, Chief Complaint SI Disposition Transported No Lights/[place] Dispatch Reason Psychiatric Problem/Abnormal Behavior/Suicide Attempt Transported To [facility] Narrative M36 ARRIVED ON SCENE WITH [employer] TO FIND A 66 YEAR OLD FEMALE LAYING IN BED. PER [employer] PATIENT HAS BEEN DRINKING A LOT AND IS INTOXICATED WITH SUICIDAL IDEATIONS. PATIENT STATED THEY DID HAVE A PLAN AND WAS GOING TO HARM THEMSELVES WITH KN[employer]. DUE TO INTOXICATION PATIENT HAD GENERALIZED WEAKNESS [address] [address] EMS Patient Care Report Name: MARIAN HEDRICK Room #: DEP ER Jahaira#: [id number] Admission: 04/14/21 Attend Phys: Discharge: 04/14/21 Date of : 55 Report #: [id number] IN ALL FOUR EXTREMETIES AND WAS NON AMBULATORY. CREW MEMBERS USED A [place] LIFT LIFTING THE PATIENT UNDERNEATH THEIR ARMS AND LEGS. CREW MEMBERS THEN MOVED PATIENT TO STRETCHER WITH [place] LIFT WHERE PATIENT WAS THEN SECURED TO STRETCHER WITH SAFETY BELTS. CREW MEMBERS THEN WHEELED PATIENT ON STRETCHER TO THE AMBULANCE. ONCE AT THE AMBULANCE PATIENT WAS LIFTED INTO AMBULANCE BY [employer] AND ASSESSMENT OF PATIENT BEGAN. EN ROUTE TO FACILITY A FULL SET OF VITALS WERE TAKEN WHICH WERE STABLE AND WITHIN NORMAL RANGES. ARRIVING AT FACILITY PATIENT WAS LIFTED OUT OF AMBULANCE VIA STRETCHER BY [employer] AND WHEELED INTO FACILITY EMERGENCY ROOM. IN THE EMERGENCY ROOM PATIENT WAS WHEELED TO HOSPITAL ROOM AND LIFTED BY [employer] ONTO HOSPITAL BED WITH A TWO PERSON SHEET LIFT. PATIENT WAS SECURED TO HOSPITAL BED WITH SIDE RAILS AND A FULL REPORT WAS GIVEN TO RECEIVING MEDICAL STAFF. AFTER REPORT WAS GIVEN M36 WENT BACK INTO SERVICE AT 0858 HOURS. Initial Vitals @08:34P: 90,R: 18,BP: 125/84,Pain: 0/10,GCS: 15,Glucose: 124,CO: 0,SpO2: 90,Revised Trauma: 12, @08:40P: 85,R: 18,BP: 126/82,Pain: 0/10,GCS: 15,CO: 8,SpO2: 97,Revised Trauma: 12, Assessments @08:49MENTAL:Combative,Place Oriented,Time Oriented,Event Oriented,Person Oriented,SKIN:HEENT:Head/Face: No Abnormalities,Neck/Airway: No Abnormalities,LUNG SOUNDS:General: No Abnormalities,ABDOMEN:General: No Abnormalities,PELVIS//GI:No Abnormalities,EXTREMITIES:Right Arm: Weakness,Left Leg: Weakness,Right Leg: Weakness,Left Arm: Weakness,PULSE:Radial: 2+ Normal,NEURO:No Abnormalities, Impression Suicidal Ideation Procedures @08:39ALS AssessmentResponse: UnchangedSucceeded@08:40BLS AssessmentResponse: Unchanged@08:40StretcherResponse: Unchanged@08:41Oxygen FlowRate: 2 Device: Nasal Cannula (NC) Response: ImprovedSucceeded Timeline 07:58,Call Received 07:58,Dispatch Notified :58,Dispatched 08:00,En Route 08:19,On Scene 08:23,At Patient 08:34,BP: 125/84 M,PULSE: 90,RR: 18 R,SPO2: 90 Ox,ETCO2: ,B,PAIN: 0,GCS: 15, 08:37,Depart Scene [address] [address] EMS Patient Care Report Name: MARIAN HEDRICK Room #: DEP EBONI Campo#: [id number] Admission: 04/14/21 Attend Phys: Discharge: 04/14/21 Date of : 55 Report #: [id number] 08:39,ALS Assessment,Response: UnchangedSucceeded, 08:40,BP: 126/82 M,PULSE: 85,RR: 18 R,SPO2: 97 Ox,ETCO2: ,BG: ,PAIN: 0,GCS: 15, 08:40,BLS Assessment,Response: Unchanged 08:40,Stretcher,Response: Unchanged 08:41,Oxygen FlowRate: 2 Device: Nasal Cannula (NC) Response: ImprovedSucceeded, 08:43,At Destination 08:58,Call Closed Disclaimer v1.1 Copyright 2020 [employer] This EMS Care Summary contains data elements from the applicable legal record (which may be displayed differently). It is designed to provide pertinent information for the following purposes: continuity of care, clinical quality, and state data reporting. The complete legal record is available to ED staff and administrators of the receiving hospital in [employer]'s Patient Tracker. All data is provided "as is."
[2021-04-14 09:06] LABS: HEMATOCRIT 33.6 % (37.0-47.0); HEMOGLOBIN 11.3 gm/dL (12.0-15.0); MCH 23.8 pg (26.0-34.0); MCHC 33.5 g/dL (28.0-37.0); MCV 71.1 fL (80.0-100.0); RBC 4.73 mil/uL (4.20-5.00); RDW 24.2 % (10.5-14.5)
[2021-04-14 09:16] LABS: CALCIUM 8.4 mg/dL (8.5-10.1); CREATININE 0.8 mg/dL (0.6-1.0); POTASSIUM 4.2 mmol/L (3.5-5.1); SALICYLATE 3.5 mg/dL (2.8-20.0)
[2021-04-14 09:57] LABS: URINE BILIRUBIN NEGATIVE (Negative); URINE BLOOD TRACE (Negative); URINE CLARITY SL CLOUDY; URINE COLOR YELLOW; URINE GLUCOSE-RANDOM* NEGATIVE (Negative); URINE KETONES NEGATIVE (Negative); URINE NITRITE-REFLEX NEGATIVE (Negative); URINE PROTEIN (DIPSTICK) NEGATIVE (Negative); URINE SPECIFIC GRAVITY 1.015 (1.005-1.035); URINE UROBILINOGEN 0.2 E.U./dl (0.2-1.0)
[2021-04-14 10:05] LABS: AMP/METHAMP Negative (Negative); BARBITURATES Negative (Negative); BENZODIAZEPINES Negative (Negative); COCAINE Negative (Negative); METHADONE Negative (Negative); OPIATES Negative (Negative); PCP Negative (Negative)
[2021-04-14 10:09] LABS: URINE LEUKOCYTES-REFLEX 3+ (Negative)
[2021-04-14 10:30] LABS: CASTS None Seen /LPF (None Seen); SQUAMOUS None Seen /LPF (0-3); URINE RBC 1-2 Rare /HPF (NONE SEEN); URINE WBC-REFLEX >25 Many /HPF (0-5)
[2021-04-14 10:31] LABS: AMORPHOUS URATES Few /LPF (None Seen); BACTERIA-REFLEX 1-9 Few /HPF (None Seen)
[2021-04-14 13:10] VITALS: BP 116/68
== END 2021-04-14 13:10 | disposition home or self-care (01) ==
LOC: ER 08:47
PROVIDERS: Student in an Organized Health Care Education/Training Program
DX: F10.129 Alcohol abuse with intoxication, unspecified (principal); Y90.9 Presence of alcohol in blood, level not specified; F41.9 Anxiety disorder, unspecified; F32.9 Major depressive disorder, single episode, unspecified; I10 Essential (primary) hypertension; J44.9 Chronic obstructive pulmonary disease, unspecified; F17.210 Nicotine dependence, cigarettes, uncomplicated; Z88.5 Allergy status to narcotic agent

== ENCOUNTER 2021-04-15 20:20 | Emergency (ER) | payer OTHER ==
[~2021-04-15] VITALS: Ht 152.4 cm; Wt 49.9 kg
--- NOTE | ~2021-04-15 | EMS ---
[address] [address] EMS Patient Care Report Name: MARIAN HEDRICK Room #: DEP EBONI Campo#: [id number] Admission: 04/15/21 Attend Phys: Discharge: 04/16/21 Date of : 55 Report #: [id number] THIS REPORT FOR: //name// Report Transmitted: 04/17/2021 09:15 EMS Care Summary [place], [place]/[facility] Incident [id number] @ 04/15/2021 19:44 Incident Location [address] [place] [address] Patient MARIAN HEDRICK Female, 66 Years 1955 Patient Address [address] [place], [place] [id number] Patient History Behavioral/Psychiatric Disorder,Substance Abuse,Alcohol Abuse, Patient Allergies No known allergies, Patient Medications Thiamine, Quetiapine, Famotidine, Unknown, Folic acid, Chief Complaint ETOH/SI Disposition Transported No Lights/[place] Dispatch Reason Overdose/Poisoning/Ingestion Transported To [facility] Narrative UPON ARRIVAL WE FOUND OUR BELLIGERENT 66 YEAR OLD FEMALE PATIENT SITTING IN BED IN THE BEDROOM OF HER APT WITH [employer] BY HER SIDE. [employer] STATES THE PATIENT CALLED 911 SEVERAL TIMES TODAY AND REPORTED SHE IS SUICIDAL AND INTOXICATING. THE [facility] [address] [place] [address] EMS Patient Care Report Name: MARIAN HEDRICK Room #: DEP ER Jahaira#: [id number] Admission: 04/15/21 Attend Phys: Discharge: 04/16/21 Date of : 55 Report #: [id number] PATIENT DENIES BEING SI TO US, BUT DOES ADMITS TO CONSUMING 2 FIFTHS OF VODKA TODAY. [facility] STATES THEY WILL PUT THE PATIENT ON A 96 HR HOLD AND THEY REQUEST SHE BE TRANSPORTED TO [facility] FOR EVALUATION. Initial Vitals @20:03P: 87,R: 18,BP: 112/78,Pain: 0/10,GCS: 15,Glucose: 95,SpO2: 93,Revised Trauma: 12, @20:14P: 80,R: 16,BP: 110/70,Pain: 0/10,GCS: 15,SpO2: 93,Revised Trauma: 12, Assessments @19:57MENTAL:Person Oriented,Place Oriented,Time Oriented,Event Oriented,Other,SKIN:HEENT:Head/Face: Other,Eyes: Right Pupil: 4-mm,Eyes: Left: Other,Eyes: Right: Other,Eyes: Left Pupil: 4-mm,Neck/Airway: No Abnormalities,LUNG SOUNDS:General: No Abnormalities,ABDOMEN:General: No Abnormalities,PELVIS//GI:No Abnormalities,EXTREMITIES:Left Arm: No Abnormalities,Right Arm: No Abnormalities,Left Leg: No Abnormalities,Right Leg: No Abnormalities,PULSE:Radial: 2+ Normal,NEURO:Slurred Speech, Impression Suicidal Ideation Procedures @19:57ALS AssessmentResponse: UnchangedSucceeded Timeline 19:43,Call Received 19:43,Dispatch Notified 19:44,Dispatched 19:46,En Route 19:52,On Scene 19:57,At Patient 19:57,ALS Assessment,Response: UnchangedSucceeded, 20:03,BP: 112/78 M,PULSE: 87,RR: 18 R,SPO2: 93 Ox,ETCO2: ,B,PAIN: 0,GCS: 15, 20:09,Depart Scene 20:14,At Destination 20:14,BP: 110/70 M,PULSE: 80,RR: 16 R,SPO2: 93 Ox,ETCO2: ,BG: ,PAIN: 0,GCS: 15, 20:30,Call Closed Disclaimer v1.1 Copyright 2020 [employer] This EMS Care Summary contains data elements from the applicable legal record (which may be displayed differently). It is designed to provide pertinent information for the following purposes: continuity of care, clinical quality, and state data reporting. The complete legal record is available to ED staff and administrators of the receiving hospital in [facility]'s Patient Tracker. All data [address] [address] EMS Patient Care Report Name: MARIAN HEDRICK Room #: DEP EBONI Campo#: [id number] Admission: 04/15/21 Attend Phys: Discharge: 04/16/21 Date of : 55 Report #: [id number] is provided "as is."
[2021-04-15 23:50] VITALS: BP 106/73
== END 2021-04-16 00:07 | disposition home or self-care (01) ==
LOC: ER 20:20
DX: F10.129 Alcohol abuse with intoxication, unspecified (principal); F41.9 Anxiety disorder, unspecified; F32.9 Major depressive disorder, single episode, unspecified; J44.9 Chronic obstructive pulmonary disease, unspecified; F17.210 Nicotine dependence, cigarettes, uncomplicated; I10 Essential (primary) hypertension; Z79.899 Other long term (current) drug therapy; Z79.891 Long term (current) use of opiate analgesic; Z88.5 Allergy status to narcotic agent; Y90.8 Blood alcohol level of 240 mg/100 ml or more

== ENCOUNTER 2021-04-18 18:46 | Emergency (ER) | payer OTHER ==
[~2021-04-18] VITALS: Ht 152.4 cm; Wt 49.9 kg
[2021-04-18 18:47] VITALS: BP 129/78
== END 2021-04-18 19:04 | disposition home or self-care (01) ==
LOC: ER 18:46
DX: Z71.1 Person with feared health complaint in whom no diagnosis is made (principal); F41.9 Anxiety disorder, unspecified; F32.9 Major depressive disorder, single episode, unspecified; J44.9 Chronic obstructive pulmonary disease, unspecified; I10 Essential (primary) hypertension; F17.210 Nicotine dependence, cigarettes, uncomplicated; Z88.5 Allergy status to narcotic agent

== ENCOUNTER 2021-04-19 09:34 | Emergency (ER) | payer OTHER ==
[~2021-04-19] VITALS: Ht 152.4 cm; Wt 49.9 kg
--- NOTE | ~2021-04-19 | EMS ---
[facility] [address] [place] [address] EMS Patient Care Report Name: MARIAN HEDRICK Room #: REG EBONI Campo#: [id number] Admission: 04/19/21 Attend Phys: Discharge: Date of : 55 Report #: [id number] THIS REPORT FOR: //name// Report Transmitted: 04/19/2021 09:07 EMS Care Summary [place], [place]/[facility] Incident [id number] @ 04/19/2021 08:55 Incident Location [address] [place] [address] Patient MARIAN HEDRICK Female, 66 Years 1955 Patient Address [address] [place] [address] Patient History Behavioral/Psychiatric Disorder,Substance Abuse,Alcohol Abuse, Patient Allergies No known allergies, Patient Medications Thiamine, Famotidine, Folic acid, Unknown, Quetiapine, Chief Complaint intoxication Disposition Transported No Lights/[place] Dispatch Reason Overdose/Poisoning/Ingestion Transported To [facility] Narrative pt is frequent 911 caller. today pt states she needs help w/ many social service issues, including cell phone service, credit card issues and pending eviction. pt informed we are unable to assist w/ that, we are only able to [facility] [address] [place] [address] EMS Patient Care Report Name: MARIAN HEDRICK Room #: REG Loly.#: [id number] Admission: 04/19/21 Attend Phys: Discharge: Date of : 55 Report #: [id number] transport to ER. she eventually states she feels unwell and wants transport. she was seen the last 2 days at [facility] for same. pt ambulatory to unit, seated on cot, transport w/o change. Initial Vitals @09:20P: 110,R: 18,BP: 136/73,Pain: 0/10,GCS: 15,SpO2: 96,Revised Trauma: 12, Assessments @09:06MENTAL:No Abnormalities,SKIN:No Abnormalities,HEENT:Head/Face: No Abnormalities,LUNG SOUNDS:ABDOMEN:PELVIS//GI:EXTREMITIES:PULSE:Radial: 2+ Normal,NEURO: Impression Overdose - Alcohol Procedures @09:06ALS AssessmentResponse: Unchanged@09:19StretcherResponse: Unchanged Timeline 08:54,Call Received 08:54,Dispatch Notified 08:55,Dispatched 08:56,En Route 09:04,On Scene 09:06,At Patient 09:06,ALS Assessment,Response: Unchanged 09:19,Stretcher,Response: Unchanged 09:20,BP: 136/73 M,PULSE: 110,RR: 18 R,SPO2: 96 Ox,ETCO2: ,BG: ,PAIN: 0,GCS: 15, 09:24,Depart Scene 09:29,At Destination 09:45,Call Closed Disclaimer v1.1 Copyright 2020 [employer] This EMS Care Summary contains data elements from the applicable legal record (which may be displayed differently). It is designed to provide pertinent information for the following purposes: continuity of care, clinical quality, and state data reporting. The complete legal record is available to ED staff and administrators of the receiving hospital in [facility]'s Patient Tracker. All data is provided "as is."
[2021-04-19 09:37] VITALS: BP 126/105
== END 2021-04-19 12:05 | disposition home or self-care (01) ==
LOC: ER 09:34
DX: F10.20 Alcohol dependence, uncomplicated (principal); Y90.9 Presence of alcohol in blood, level not specified; F41.9 Anxiety disorder, unspecified; F32.9 Major depressive disorder, single episode, unspecified; I10 Essential (primary) hypertension; J44.9 Chronic obstructive pulmonary disease, unspecified; F17.210 Nicotine dependence, cigarettes, uncomplicated; Z00.8 Encounter for other general examination; Z88.5 Allergy status to narcotic agent

== ENCOUNTER 2021-05-22 20:59 | Emergency (ER) | payer OTHER | END 2021-05-22 21:10 | disposition left against medical advice (07) | LOC: ER 20:59 | DX: F10.229 Alcohol dependence with intoxication, unspecified (principal); F41.9 Anxiety disorder, unspecified; F32.9 Major depressive disorder, single episode, unspecified; J44.9 Chronic obstructive pulmonary disease, unspecified; I10 Essential (primary) hypertension; K75.9 Inflammatory liver disease, unspecified; Z53.21 Procedure and treatment not carried out due to patient leaving prior to being seen by health care provider; Z98.890 Other specified postprocedural states; Z88.6 Allergy status to analgesic agent ==

== ENCOUNTER 2021-05-24 16:11 | Emergency (ER) | payer OTHER ==
--- NOTE | ~2021-05-24 | EMS ---
[address] [address] EMS Patient Care Report Name: MARIAN HEDRICK Room #: REG EBONI Campo#: [id number] Admission: 05/24/21 Attend Phys: Discharge: Date of : 55 Report #: [id number] THIS REPORT FOR: //name// Report Transmitted: 05/24/2021 15:53 EMS Care Summary [place], [place] Incident [id number] @ 05/24/2021 15:35 Incident Location [address] [place] [address] Patient MARIAN HEDRICK Female, 66 Years 1955 Patient Address [address] [place] [address] Patient History Behavioral/Psychiatric Disorder,Substance Abuse,Alcohol Abuse, Patient Allergies No known allergies, Patient Medications Folic acid, Quetiapine, Famotidine, Unknown, Thiamine, Chief Complaint ALCHOLISM Disposition Transported No Lights/[place] Dispatch Reason Overdose/Poisoning/Ingestion Transported To [facility] Narrative M41 RESPONDED TO A RESIDENCE ON AN OVERDOSE. PATIENT STATES HAS BEEN DRINKING FOR DAYS. PD STATES WHEN SHE CALLED 911 SHE WAS MAKING SUICIDAL REMARKS. PATIENT STATES SHE IS NOT SUICIDAL. EMS, FIRE AND PATIENT ALL HAD PPE AND MASKS ON. [facility] [address] [place] [address] EMS Patient Care Report Name: MARIAN HEDRICK Room #: REG EBONI Campo#: [id number] Admission: 05/24/21 Attend Phys: Discharge: Date of : 55 Report #: [id number] UPON EMS ARRIVAL PATIENT FOUND SITTING IN BED. PATIENT WAS ASSISTED TO THE COT AND BUCKLED IN WITH SEATBELTS. TWO SETS OF VITALS OBTAINED ENROUTE NO SIGNIFICANT CHANGES. PATIENT TRANSFERRED SELF FROM COT TO HOSPITAL BED WITH NO ISSUES. REPORT GIVEN TO RN. RN SIGNATURE OBTAINED. Initial Vitals @15:57P: 99,R: 16,BP: 154/96,Pain: 0/10,GCS: 15,CO: 6,SpO2: 94,Revised Trauma: 12, @15:56P: 94,R: 16,BP: 158/109,Pain: 0/10,GCS: 15,Revised Trauma: 12, Assessments @15:47MENTAL:Place Oriented,Person Oriented,Time Oriented,Event Oriented,SKIN:HEENT:Head/Face: No Abnormalities,Neck/Airway: No Abnormalities,LUNG SOUNDS:General: No Abnormalities,ABDOMEN:General: No Abnormalities,PELVIS//GI:No Abnormalities,EXTREMITIES:Left Arm: No Abnormalities,Right Arm: No Abnormalities,Left Leg: No Abnormalities,Right Leg: No Abnormalities,PULSE:Radial: 2+ Normal,NEURO:Slurred Speech, Impression Overdose - Alcohol Procedures @15:46ALS AssessmentResponse: UnchangedSucceeded@15:47BLS AssessmentResponse: Unchanged Timeline 15:33,Call Received 15:33,Dispatch Notified 15:35,Dispatched 15:35,En Route 15:44,On Scene 15:46,At Patient 15:46,ALS Assessment,Response: UnchangedSucceeded, 15:47,BLS Assessment,Response: Unchanged 15:56,BP: 158/109 M,PULSE: 94,RR: 16 R,SPO2: Ox,ETCO2: ,BG: ,PAIN: 0,GCS: 15, 15:57,BP: 154/96 M,PULSE: 99,RR: 16 R,SPO2: 94 Ox,ETCO2: ,BG: ,PAIN: 0,GCS: 15, 16:14,Depart Scene 16:14,At Destination 16:31,Call Closed Disclaimer v1.1 Copyright 2020 [employer] This EMS Care Summary contains data elements from the applicable legal record (which may be displayed differently). It is designed to provide pertinent information for the following purposes: continuity of care, clinical quality, [facility] [address] [place] [address] EMS Patient Care Report Name: MARIAN HEDRICK Room #: REG Jahaira#: [id number] Admission: 05/24/21 Attend Phys: Discharge: Date of : 55 Report #: [id number] and state data reporting. The complete legal record is available to ED staff and administrators of the receiving hospital in [facility] Patient Tracker. All data is provided "as is."
[2021-05-24 16:11] VITALS: BP 175/104
[2021-05-25] MEDS ORDERED: ATIVAN0.5 M1 PO (04:39)
[2021-05-25] MEDS ORDERED: ZOFRAN ODT4 MG PO (04:39)
== END 2021-05-24 16:24 | disposition home or self-care (01) ==
LOC: ER 16:11
DX: F10.129 Alcohol abuse with intoxication, unspecified (principal); I10 Essential (primary) hypertension; F41.9 Anxiety disorder, unspecified; F32.9 Major depressive disorder, single episode, unspecified; J44.9 Chronic obstructive pulmonary disease, unspecified; K75.9 Inflammatory liver disease, unspecified; F17.210 Nicotine dependence, cigarettes, uncomplicated; Z98.890 Other specified postprocedural states; Z79.899 Other long term (current) drug therapy; Z88.5 Allergy status to narcotic agent

== ENCOUNTER 2021-05-24 20:59 | Emergency (ER) | payer OTHER ==
[~2021-05-24] VITALS: Ht 152.4 cm; Wt 40.8 kg
--- NOTE | ~2021-05-24 | EMS ---
[address] [address] EMS Patient Care Report Name: MARIAN HEDRICK Room #: REG EBONI Campo#: [id number] Admission: 05/24/21 Attend Phys: Discharge: Date of : 55 Report #: [id number] THIS REPORT FOR: //name// Report Transmitted: 05/24/2021 21:13 EMS Care Summary [place], [place]/[facility] Incident [id number] @ 05/24/2021 20:30 Incident Location [address] [place] [address] Patient MARIAN HEDRICK Female, 66 Years 1955 Patient Address [address] [place] [address] Patient History Behavioral/Psychiatric Disorder,Substance Abuse,Alcohol Abuse, Patient Allergies No known allergies, Patient Medications Folic acid, Thiamine, Quetiapine, Unknown, Famotidine, Chief Complaint vomiting Disposition Transported No Lights/[place] Dispatch Reason Overdose/Poisoning/Ingestion Transported To [facility] Narrative pt found seated in bed, a&o. pt is an alcoholic who just left [facility] a couple hours ago and is req transport back to the facility. she has same complaints of vomiting and wanting detox. pt ambulatory to cot in nearby room. she seats [facility] [address] [place] [address] EMS Patient Care Report Name: MARIAN HEDRICK Room #: REG EBONI Campo#: [id number] Admission: 05/24/21 Attend Phys: Discharge: Date of : 55 Report #: [id number] self on cot, VS, transport w/o change. pt to triage. Initial Vitals @20:49P: 107,R: 18,BP: 158/97,Pain: 0/10,GCS: 15,Glucose: 81,Revised Trauma: 12, Assessments @20:43MENTAL:No Abnormalities,SKIN:No Abnormalities,HEENT:Head/Face: No Abnormalities,LUNG SOUNDS:General: Vomiting,ABDOMEN:General: Vomiting,PELVIS//GI:EXTREMITIES:PULSE:Radial: 2+ Normal,NEURO:No Abnormalities, Impression Overdose - Alcohol Procedures @20:43ALS Assessment@20:46StretcherResponse: Unchanged Timeline 20:28,Call Received 20:28,Dispatch Notified 20:30,Dispatched 20:30,En Route 20:40,On Scene 20:43,At Patient 20:43,ALS Assessment, 20:46,Stretcher,Response: Unchanged 20:49,BP: 158/97 M,PULSE: 107,RR: 18 R,SPO2: Ox,ETCO2: ,B,PAIN: 0,GCS: 15, 20:50,Depart Scene 20:55,At Destination 21:07,Call Closed Disclaimer v1.1 Copyright 2020 [email or web address] This EMS Care Summary contains data elements from the applicable legal record (which may be displayed differently). It is designed to provide pertinent information for the following purposes: continuity of care, clinical quality, and state data reporting. The complete legal record is available to ED staff and administrators of the receiving hospital in [facility]'s Patient Tracker. All data is provided "as is."
[2021-05-25 00:19] LABS: CALCIUM 9.3 mg/dL (8.5-10.1); CREATININE 0.7 mg/dL (0.6-1.0); HEMATOCRIT 43.9 % (37.0-47.0); POTASSIUM 4.9 mmol/L (3.5-5.1)
[2021-05-25 00:21] LABS: HEMOGLOBIN 13.8 gm/dL (12.0-15.0); MCH 25.3 pg (26.0-34.0); MCHC 31.4 g/dL (28.0-37.0); MCV 80.5 fL (80.0-100.0); PLATELET COUNT 423 thou/uL (150-400); RBC 5.44 mil/uL (4.20-5.00); RDW 26.7 % (10.5-14.5); WBC 7.1 thou/uL (4.0-11.0)
[2021-05-25 01:07] LABS: ABSOLUTE NEUTROPHILS 5.5 thou/uL (1.4-8.2)
[2021-05-25 01:08] LABS: ANISOCYTOSIS 3+; PLATELET ESTIMATE INCREASED; POIKILOCYTOSIS 1+
[2021-05-25] MEDS ORDERED: ATIVAN0.5 M1 PO (04:39)
[2021-05-25] MEDS ORDERED: ZOFRAN ODT4 MG PO (04:39)
--- NOTE | 2021-05-25 07:34 | EKG ---
[place] [address] [facility] [place] [address] ELECTROCARDIOGRAM REPORT Name: MARIAN HEDRICK [facility] #: [facility] [id number] Admission: 05/24/21 Attend Phys: Discharge: Date of : 55 Report #: [id number] [facility] ED Test Date: 2021-05-24 Test Time: 23:34:01 Pat Name: MARIAN HEDRICK Department: Room: Gender: F [employer]or: : 1955 Requested By: Kevin Angulo Order Number: [id number] MD: Tay Liriano Measurements Intervals [place] Rate: 100 P: 58 [place]: 125 QRS: 76 QRSD: 92 T: 71 QT: 378 QTc: 488 Interpretive Statements Sinus tachycardia Borderline prolonged QT interval Baseline wander in lead(s) V3 Compared to ECG 03/27/2021 15:17:10 Sinus rhythm no longer present Electronically Signed On 05-25-2021 7:33:54 CDT by Tay Liriano [email or web address] <ELECTRONICALLY SIGNED> By: Tay Liriano MD, [facility] 05/25/21 0733 D: 10/2333 33 Tay Liriano MD, FACC /EPI
[2021-05-25 08:35] VITALS: BP 151/93
== END 2021-05-25 09:06 | disposition home or self-care (01) ==
LOC: ER 20:59
PROVIDERS: Emergency Medicine
DX: R11.0 Nausea (principal); F10.20 Alcohol dependence, uncomplicated; F41.9 Anxiety disorder, unspecified; K75.9 Inflammatory liver disease, unspecified; F32.9 Major depressive disorder, single episode, unspecified; J44.9 Chronic obstructive pulmonary disease, unspecified; I10 Essential (primary) hypertension; F17.210 Nicotine dependence, cigarettes, uncomplicated; Z98.890 Other specified postprocedural states; Z79.891 Long term (current) use of opiate analgesic; Z79.899 Other long term (current) drug therapy; Z88.5 Allergy status to narcotic agent

== ENCOUNTER 2021-06-01 19:50 | Emergency (ER) | payer OTHER ==
[~2021-06-01] VITALS: Ht 160 cm; Wt 58.1 kg
--- NOTE | ~2021-06-01 | EMS ---
[facility] [address] [place] [address] EMS Patient Care Report Name: MARIAN HEDRICK Room #: REG EBONI Campo#: [id number] Admission: 06/01/21 Attend Phys: Discharge: Date of : 55 Report #: [id number] THIS REPORT FOR: //name// Report Transmitted: 06/01/2021 19:09 EMS Care Summary [place], [place] Incident [id number] @ 06/01/2021 18:49 Incident Location [address] [place] [address] Patient MARIAN HEDRICK Female, 66 Years 1955 Patient Address [address] [place] [address] Patient History Behavioral/Psychiatric Disorder,Substance Abuse,Alcohol Abuse, Patient Allergies No known allergies, Patient Medications Folic acid, Unknown, Thiamine, Quetiapine, Famotidine, Chief Complaint SI Disposition Transported No Lights/[place] Dispatch Reason Overdose/Poisoning/Ingestion Transported To [facility] Narrative pt called 911 stating she was suicidal and going to on alcohol. on arrival, pt states she is not suicidal, likes her life and was just doing it to get attention. she is refusing transport. PD tells pt she has to have a mental [address] [address] EMS Patient Care Report Name: MARIAN HEDRICK Room #: REG EBONI Campo#: [id number] Admission: 06/01/21 Attend Phys: Discharge: Date of : 55 Report #: [id number] health eval b/c of her statements. pt finally agrees to eval at [facility]. pt to cot, VS, transport w/o incident. Initial Vitals @19:39P: 100,R: 20,BP: 127/80,Pain: 0/10,GCS: 15,SpO2: 96,Revised Trauma: 12, Assessments @19:15MENTAL:No Abnormalities,SKIN:No Abnormalities,HEENT:Head/Face: No Abnormalities,LUNG SOUNDS:ABDOMEN:PELVIS//GI:EXTREMITIES:PULSE:Radial: 2+ Normal,NEURO:No Abnormalities, Impression Behavioral/psychiatric episode Procedures @19:15 ALS Assessment Response: Unchanged @19:30 Stretcher Response: Unchanged Timeline 18:47,Call Received 18:47,Dispatch Notified 18:49,Dispatched 18:49,En Route 19:05,On Scene 19:09,At Patient 19:15,ALS Assessment,Response: Unchanged 19:30,Stretcher,Response: Unchanged 19:36,Depart Scene 19:39,BP: 127/80 M,PULSE: 100,RR: 20 R,SPO2: 96 Ox,ETCO2: ,BG: ,PAIN: 0,GCS: 15, 19:44,At Destination 19:58,Call Closed Disclaimer v1.1 Copyright 2020 [employer] This EMS Care Summary contains data elements from the applicable legal record (which may be displayed differently). It is designed to provide pertinent information for the following purposes: continuity of care, clinical quality, and state data reporting. The complete legal record is available to ED staff and administrators of the receiving hospital in [facility] Patient Tracker. All data is provided "as is."
[~2021-06-01 19:50] MED LIST changes: +ATIVAN0.5 M1 PO
[2021-06-01 21:19] VITALS: BP 139/102
== END 2021-06-01 21:20 | disposition home or self-care (01) ==
LOC: ER 19:50
DX: R45.851 Suicidal ideations (principal); F41.9 Anxiety disorder, unspecified; F32.9 Major depressive disorder, single episode, unspecified; I10 Essential (primary) hypertension; J44.9 Chronic obstructive pulmonary disease, unspecified; F17.210 Nicotine dependence, cigarettes, uncomplicated; Z88.5 Allergy status to narcotic agent; F10.20 Alcohol dependence, uncomplicated; Y90.9 Presence of alcohol in blood, level not specified

== ENCOUNTER 2021-06-24 14:13 | Emergency (ER) | payer OTHER ==
[~2021-06-24] VITALS: Ht 160 cm; Wt 39.9 kg
--- NOTE | ~2021-06-24 | EMS ---
[address] [address] EMS Patient Care Report Name: MARIAN HEDRICK Room #: DEP EBONI Campo#: [id number] Admission: 06/24/21 Attend Phys: Discharge: 06/24/21 Date of : 55 Report #: [id number] THIS REPORT FOR: //name// Report Transmitted: 06/25/2021 13:17 EMS Care Summary [place], [place] Incident [id number] @ 06/24/2021 13:29 Incident Location [address] [place] [address] Patient MARIAN HEDRICK Female, 66 Years 1955 Patient Address [address] [place] [address] Patient History Behavioral/Psychiatric Disorder,Smoking,Substance Abuse,Alcohol Abuse, Patient Allergies No known allergies, Patient Medications Famotidine, Folic acid, Quetiapine, Thiamine, Chief Complaint ETOH withdrawal Disposition Transported No Lights/[place] Dispatch Reason Overdose/Poisoning/Ingestion Transported To [facility] Narrative Arrived to find pt sitting in bed smoking a cigarette. Pt states she has a drinking problem and was last sober several weeks ago. Pt states she drinks at least a pint of vodka a day and last had a drink 90 minutes ago. Pt is AOx3 GCS [address] [address] EMS Patient Care Report Name: MARIAN HEDRICK Room #: DEP EBONI Cmapo#: [id number] Admission: 06/24/21 Attend Phys: Discharge: 06/24/21 Date of : 55 Report #: [id number] 15. Pt is mostly calm. Pt sits on cot and is secured with cot straps. Pt placed in surgical mask. Pt placed in unit. Pt states she hasn't eaten in several days. Pt bgl 42 so pt administered oral glucose. Pt transported without incident. Care to RN, triage. Initial Vitals @13:59P: 97,BP: 115/75,CO: 4,SpO2: 97, @13:58P: 96,R: 16,BP: 125/85,Pain: 0/10,GCS: 15,Glucose: 42,Revised Trauma: 12, @14:11Glucose: 60, Assessments @13:53MENTAL:Place Oriented,Time Oriented,Event Oriented,Person Oriented,SKIN:HEENT:Head/Face: No Abnormalities,Eyes: No Abnormalities,Neck/Airway: No Abnormalities,LUNG SOUNDS:General: No Abnormalities,Left Upper: No Abnormalities,Right Upper: No Abnormalities,Left Lower: No Abnormalities,Right Lower: No Abnormalities,ABDOMEN:General: No Abnormalities,Left Upper: No Abnormalities,Right Upper: No Abnormalities,Left Lower: No Abnormalities,Right Lower: No Abnormalities,PELVIS//GI:EXTREMITIES:Left Arm: No Abnormalities,Right Arm: No Abnormalities,Left Leg: No Abnormalities,Right Leg: No Abnormalities,PULSE:NEURO: Impression Alcohol dependence with withdrawal Procedures @13:53 ALS Assessment Response: UnchangedSucceeded @14:01 Oral Glucose - 31 Grams (gms) - Oral Response: Improved Timeline 13:26,Call Received 13:26,Dispatch Notified 13:29,Dispatched 13:29,En Route 13:48,On Scene 13:52,At Patient 13:53,ALS Assessment,Response: UnchangedSucceeded, 13:58,BP: 125/85 M,PULSE: 96,RR: 16 R,SPO2: Ox,ETCO2: ,B,PAIN: 0,GCS: 15, 13:59,BP: 115/75 M,PULSE: 97,RR: R,SPO2: 97 Ox,ETCO2: ,BG: ,PAIN: ,GCS: , 14:01,Oral Glucose - 31 Grams (gms) - Oral,Response: Improved 14:04,Depart Scene 14:11,At Destination 14:11,BP: / M,PULSE: ,RR: R,SPO2: Ox,ETCO2: ,B,PAIN: ,GCS: , 14:18,Call Closed [address] [address] EMS Patient Care Report Name: MARIAN HEDRICK Room #: DEP Jahaira#: [id number] Admission: 06/24/21 Attend Phys: Discharge: 06/24/21 Date of : 55 Report #: [id number] Disclaimer v1.1 Copyright 2020 [employer] This EMS Care Summary contains data elements from the applicable legal record (which may be displayed differently). It is designed to provide pertinent information for the following purposes: continuity of care, clinical quality, and state data reporting. The complete legal record is available to ED staff and administrators of the receiving hospital in [facility] Patient Tracker. All data is provided "as is."
[2021-06-24 14:23] VITALS: BP 125/86
== END 2021-06-24 15:15 | disposition left against medical advice (07) ==
LOC: ER 14:13
DX: F10.10 Alcohol abuse, uncomplicated (principal); K75.9 Inflammatory liver disease, unspecified; F41.9 Anxiety disorder, unspecified; F32.9 Major depressive disorder, single episode, unspecified; J44.9 Chronic obstructive pulmonary disease, unspecified; I10 Essential (primary) hypertension; F17.210 Nicotine dependence, cigarettes, uncomplicated; Z98.890 Other specified postprocedural states

== ENCOUNTER → 2021-07-03 | Emergency (ER) | payer OTHER ==
[~2021-07-03] VITALS: Ht 160 cm; Wt 39.9 kg
--- NOTE | ~2021-07-03 | EMS ---
[address] [address] EMS Patient Care Report Name: MARIAN HEDRICK Room #: REG EBONI Campo#: [id number] Admission: 07/03/21 Attend Phys: Discharge: Date of : 55 Report #: [id number] THIS REPORT FOR: //name// Report Transmitted: 07/06/2021 15:13 EMS Care Summary [place], [place] Incident [id number] @ 07/03/2021 12:56 Incident Location [address] [place] [address] Patient MARIAN HEDRICK Female, 66 Years 1955 Patient Address [address] [place] [address] Patient History Behavioral/Psychiatric Disorder,Smoking,Substance Abuse,Alcohol Abuse, Patient Allergies No known allergies, Patient Medications Quetiapine, Famotidine, Folic acid, Thiamine, Chief Complaint ETOH Disposition Transported No Lights/[place] Dispatch Reason Overdose/Poisoning/Ingestion Transported To [facility] Narrative Arrived to find pt smoking a cigarette in bed, with empty vodka bottles on the floor. Pt states she has been drinking a pint a day for the past several days and is nauseated. Pt states she wants to go to the hospital. Pt is AOx3, GCS [address] [address] EMS Patient Care Report Name: MARIAN HEDRICK Room #: REG EBONI Campo#: [id number] Admission: 07/03/21 Attend Phys: Discharge: Date of : 55 Report #: [id number] 15. Pt placed on cot and secured to cot with cot straps. Pt placed in back of unit and transported without incident. Care to RN, triage. Initial Vitals @:P: 123,R: 16,BP: 152/94,Pain: 0/10,GCS: 15,Glucose: 134,CO: 2,SpO2: 98,Revised Trauma: 12, @:27P: 120,BP: 148/96,CO: 7,SpO2: 99, Assessments @13:19MENTAL:Person Oriented,Place Oriented,Event Oriented,Time Oriented,SKIN:HEENT:Head/Face: No Abnormalities,Eyes: No Abnormalities,Neck/Airway: No Abnormalities,LUNG SOUNDS:General: Nausea,Left Upper: No Abnormalities,Right Upper: No Abnormalities,Left Lower: No Abnormalities,Right Lower: No Abnormalities,ABDOMEN:General: Nausea,Left Upper: No Abnormalities,Right Upper: No Abnormalities,Left Lower: No Abnormalities,Right Lower: No Abnormalities,PELVIS//GI:No Abnormalities,EXTREMITIES:Left Arm: No Abnormalities,Right Arm: No Abnormalities,Left Leg: No Abnormalities,Right Leg: No Abnormalities,PULSE:NEURO:Slurred Speech, Impression Overdose - Alcohol Procedures @13:19 ALS Assessment Response: UnchangedSucceeded Timeline 12:53,Call Received 12:53,Dispatch Notified 12:56,Dispatched 12:57,En Route 13:16,On Scene 13:19,At Patient 13:19,ALS Assessment,Response: UnchangedSucceeded, 13:26,BP: 152/94 M,PULSE: 123,RR: 16 R,SPO2: 98 Ox,ETCO2: ,B,PAIN: 0,GCS: 15, 13:27,Depart Scene 13:27,BP: 148/96 M,PULSE: 120,RR: R,SPO2: 99 Ox,ETCO2: ,BG: ,PAIN: ,GCS: , 13:33,At Destination 13:45,Call Closed Disclaimer v1.1 Copyright 2020 [employer] This EMS Care Summary contains data elements from the applicable legal record (which may be displayed differently). It is designed to provide pertinent [facility] [address] [place] [address] EMS Patient Care Report Name: MARIAN HEDRICK Room #: REG [facility].#: [id number] Admission: 07/03/21 Attend Phys: Discharge: Date of : 55 Report #: [id number] information for the following purposes: continuity of care, clinical quality, and state data reporting. The complete legal record is available to ED staff and administrators of the receiving hospital in [facility] Patient Tracker. All data is provided "as is."
[2021-07-03 13:45] VITALS: BP 128/82
== END ==
LOC: ER 13:38
DX: F10.229 Alcohol dependence with intoxication, unspecified (principal); K75.9 Inflammatory liver disease, unspecified; F17.200 Nicotine dependence, unspecified, uncomplicated; F32.9 Major depressive disorder, single episode, unspecified; F41.9 Anxiety disorder, unspecified; J44.9 Chronic obstructive pulmonary disease, unspecified; I10 Essential (primary) hypertension; Z98.890 Other specified postprocedural states; Z88.6 Allergy status to analgesic agent

== ENCOUNTER 2021-07-11 15:41 | Emergency (ER) | payer OTHER ==
--- NOTE | ~2021-07-11 | EMS ---
[address] [address] EMS Patient Care Report Name: MARIAN HEDRICK Room #: DEP EBONI Campo#: [id number] Admission: 07/11/21 Attend Phys: Discharge: 07/11/21 Date of : 55 Report #: [id number] THIS REPORT FOR: //name// Report Transmitted: 07/24/2021 13:51 EMS Care Summary [place], [place]/[facility] Incident [id number] @ 07/11/2021 15:05 Incident Location [address] [place] [address] Patient MARIAN HEDRICK Female, 66 Years 1954-09-20 Patient Address [address] [place] [address] Patient History Alcohol Abuse, Patient Allergies No known allergies, Patient Medications None Reported, Chief Complaint take me to the hospital Disposition Transported No Lights/[place] Dispatch Reason Psychiatric Problem/Abnormal Behavior/Suicide Attempt Transported To [facility] Narrative Called to the scene for a sick person upon arrival pt found standing in her apartment [address] [address] EMS Patient Care Report Name: MARIAN HEDRICK Room #: DEP Jahaira#: [id number] Admission: 07/11/21 Attend Phys: Discharge: 07/11/21 Date of : 55 Report #: [id number] primary: A: patent by pt B: regular and non labored C: equal radial pulses are noted D: no obvious deformity is noted pt states she wants to go to the ED where she can be evaluated for an alcohol problem. pt placed on cot and secured in unit vitals as noted radio report pt transported to ED where pt walked out of ED before I could give report to the ED nurse. nursing staff and security were trying to get her back in the ED. report given to triage nurse. EOR Initial Vitals @15:27P: 90,R: 18,BP: 138/94,Pain: 0/10,GCS: 15,CO: 14,SpO2: 97,Revised Trauma: 12, Assessments @15:25MENTAL:No Abnormalities,SKIN:No Abnormalities,HEENT:Head/Face: No Abnormalities,Eyes: No Abnormalities,Neck/Airway: No Abnormalities,LUNG SOUNDS:General: No Abnormalities,Left Upper: No Abnormalities,Right Upper: No Abnormalities,Left Lower: No Abnormalities,Right Lower: No Abnormalities,ABDOMEN:General: No Abnormalities,Left Upper: No Abnormalities,Right Upper: No Abnormalities,Left Lower: No Abnormalities,Right Lower: No Abnormalities,PELVIS//GI:EXTREMITIES:Left Arm: No Abnormalities,Right Arm: No Abnormalities,Left Leg: No Abnormalities,Right Leg: No Abnormalities,PULSE:NEURO:No Abnormalities, Impression Behavioral/psychiatric episode Procedures @15:21 ALS Assessment Response: UnchangedSucceeded [facility] [address] [place] [address] EMS Patient Care Report Name: MARIAN HEDRICK Room #: DEP ER Jahaira#: [id number] Admission: 07/11/21 Attend Phys: Discharge: 07/11/21 Date of : 55 Report #: [id number] Timeline 15:04,Call Received 15:04,Dispatch Notified 15:05,Dispatched 15:07,En Route 15:17,On Scene 15:20,At Patient 15:21,ALS Assessment,Response: UnchangedSucceeded, 15:27,BP: 138/94 M,PULSE: 90,RR: 18 R,SPO2: 97 Ox,ETCO2: ,BG: ,PAIN: 0,GCS: 15, 15:48,Depart Scene 15:48,At Destination 16:01,Call Closed Disclaimer v1.1 Copyright 2020 [employer] This EMS Care Summary contains data elements from the applicable legal record (which may be displayed differently). It is designed to provide pertinent information for the following purposes: continuity of care, clinical quality, and state data reporting. The complete legal record is available to ED staff and administrators of the receiving hospital in [facility] Patient Tracker. All data is provided "as is."
== END 2021-07-11 15:45 | disposition left against medical advice (07) ==
LOC: ER 15:41
DX: F10.129 Alcohol abuse with intoxication, unspecified (principal); Z53.21 Procedure and treatment not carried out due to patient leaving prior to being seen by health care provider; Y90.9 Presence of alcohol in blood, level not specified

== ENCOUNTER 2021-07-13 05:45 | Emergency (ER) | payer OTHER ==
[~2021-07-13] VITALS: Ht 162.6 cm; Wt 37.6 kg
--- NOTE | ~2021-07-13 | EMS ---
[address] [address] EMS Patient Care Report Name: MARIAN HEDRICK Room #: REG EBONI Campo#: [id number] Admission: 07/13/21 Attend Phys: Discharge: Date of : 55 Report #: [id number] THIS REPORT FOR: //name// Report Transmitted: 07/13/2021 05:30 EMS Care Summary [place], [place] Incident [id number] @ 07/13/2021 04:55 Incident Location [address] [place] [address] Patient MARIAN HEDRICK Female, 66 Years 1955 Patient Address [address] [place] [address] Patient History Alcohol Abuse, Chief Complaint Suicidal Ideations Disposition Transported No Lights/[place] Dispatch Reason Psychiatric Problem/Abnormal Behavior/Suicide Attempt Transported To [facility] Narrative M36 dispatched for a 66 year old female conscious and breathing having Suicidal Ideations, Arrival at the scene EMS finds the patient with PD. Patient acknowledges EMS presence is GSC 15, AAOx4. Patient has a patent airway is breathing adequately with strong regular radial pulses. Skin is pink warm and dry. Patient confirms Suicidal ideations and states that she is tired of her quality of life and wants to jump out a window. Patient is assisted to the stretcher and secured in the fowlers position using seatbelts and rails. Once [facility] [address] [place] [address] EMS Patient Care Report Name: MARIAN HEDRICK Room #: REG [facility].#: [id number] Admission: 07/13/21 Attend Phys: Discharge: Date of : 55 Report #: [id number] inside the ambulance VS are obtained. Patient is uncooperative and rude with EMS. Patient give EMS false demographics and when asked for medical conditions she denies and when questioned further she becomes agitated and verbally aggressive. Transport is initiated to [facility]. Assessment conducted is unremarkable. Arrival at the receiving facility patient is taken to ED room 7. RN recognizes the patient and correct demographics are obtained from staff. RN is given report and transfer of care is completed. Signatures are obtained and M36 returns to service. Initial Vitals @05:35P: 98,R: 18,BP: 129/92,Pain: 0/10,GCS: 15,CO: 8,SpO2: 95,Revised Trauma: 12, @05:40P: 98,R: 16,BP: 127/85,Pain: 0/10,GCS: 15,SpO2: 96,Revised Trauma: 12, Assessments @05:31MENTAL:No Abnormalities,SKIN:No Abnormalities,HEENT:Head/Face: No Abnormalities,Eyes: No Abnormalities,Neck/Airway: No Abnormalities,LUNG SOUNDS:General: No Abnormalities,Left Upper: No Abnormalities,Right Upper: No Abnormalities,Left Lower: No Abnormalities,Right Lower: No Abnormalities,ABDOMEN:General: No Abnormalities,Left Upper: No Abnormalities,Right Upper: No Abnormalities,Left Lower: No Abnormalities,Right Lower: No Abnormalities,PELVIS//GI:No Abnormalities,EXTREMITIES:Left Arm: No Abnormalities,Right Arm: No Abnormalities,Left Leg: No Abnormalities,Right Leg: No Abnormalities,PULSE:Radial: 2+ Normal,NEURO:No Abnormalities, Impression Behavioral/psychiatric episode Procedures @05:31 ALS Assessment Response: UnchangedSucceeded Timeline 04:54,Call Received 04:54,Dispatch Notified 04:55,Dispatched 05:01,En Route 05:29,On Scene 05:31,At Patient 05:31,ALS Assessment,Response: UnchangedSucceeded, 05:35,BP: 129/92 M,PULSE: 98,RR: 18 R,SPO2: 95 Ox,ETCO2: ,BG: ,PAIN: 0,GCS: 15, 05:36,Depart Scene 05:40,BP: 127/85 M,PULSE: 98,RR: 16 R,SPO2: 96 Ox,ETCO2: ,BG: ,PAIN: 0,GCS: 15, [facility] [address] [place] [address] EMS Patient Care Report Name: MARIAN HEDRICK Room #: REG [facility].#: [id number] Admission: 07/13/21 Attend Phys: Discharge: Date of : 55 Report #: [id number] 05:41,At Destination 05:53,Call Closed Disclaimer v1.1 Copyright 2020 [employer] This EMS Care Summary contains data elements from the applicable legal record (which may be displayed differently). It is designed to provide pertinent information for the following purposes: continuity of care, clinical quality, and state data reporting. The complete legal record is available to ED staff and administrators of the receiving hospital in [facility] Patient Tracker. All data is provided "as is."
[2021-07-13 06:44] LABS: AMP/METHAMP Negative (Negative); BARBITURATES Negative (Negative); BENZODIAZEPINES Negative (Negative); COCAINE Negative (Negative); METHADONE Negative (Negative); OPIATES Negative (Negative); PCP Negative (Negative)
[2021-07-13 06:49] LABS: HEMATOCRIT 31.1 % (37.0-47.0); HEMOGLOBIN 10.1 gm/dL (12.0-15.0); MCH 27.8 pg (26.0-34.0); MCHC 32.4 g/dL (28.0-37.0); MCV 85.8 fL (80.0-100.0); PLATELET COUNT 251 thou/uL (150-400); RBC 3.62 mil/uL (4.20-5.00); RDW 25.9 % (10.5-14.5); WBC 2.6 thou/uL (4.0-11.0)
[2021-07-13 06:53] LABS: ANION GAP 9 mmol/L (7-16); BUN 8 mg/dL (7-18); CALCIUM 8.1 mg/dL (8.5-10.1); CHLORIDE 106 mmol/L (98-107); CO2 24 mmol/L (21-32); CREATININE 0.5 mg/dL (0.6-1.0); GLUCOSE 81 mg/dL (74-106); POTASSIUM 3.4 mmol/L (3.5-5.1); SODIUM 139 mmol/L (136-145)
[2021-07-13 07:02] LABS: ALBUMIN 2.5 g/dL (3.4-5.0); DIRECT BILIRUBIN < 0.1 mg/dL (<0.1-0.2); SGOT 21 U/L (15-37); SGPT 9 U/L (30-65); TOTAL BILIRUBIN 0.1 mg/dL (0.2-1.0); TOTAL PROTEIN 5.8 g/dL (6.4-8.2)
[2021-07-13 07:21] LABS: SALICYLATE < 2.8 mg/dL (2.8-20.0)
[2021-07-13 09:24] LABS: URINE BILIRUBIN NEGATIVE (Negative); URINE BLOOD NEGATIVE (Negative); URINE CLARITY CLEAR; URINE COLOR YELLOW; URINE GLUCOSE-RANDOM* NEGATIVE (Negative); URINE KETONES NEGATIVE (Negative); URINE LEUKOCYTES-REFLEX NEGATIVE (Negative); URINE NITRITE-REFLEX NEGATIVE (Negative); URINE PROTEIN (DIPSTICK) NEGATIVE (Negative); URINE SPECIFIC GRAVITY 1.015 (1.005-1.035); URINE UROBILINOGEN 0.2 E.U./dl (0.2-1.0)
[2021-07-13 09:52] LABS: ABSOLUTE NEUTROPHILS 0.9 thou/uL (1.4-8.2); PLATELET ESTIMATE NORMAL
[2021-07-13 12:57] VITALS: BP 133/81
--- NOTE | 2021-07-14 07:58 | EKG ---
[place] [address] [employer] [place] [address] ELECTROCARDIOGRAM REPORT Name: MARIAN HEDRICK [facility] #: [facility]P [id number] Admission: 07/13/21 Attend Phys: Discharge: 07/13/21 Date of : 55 Report #: [id number] [facility] ED Test Date: 2021-07-13 Test Time: 07:41:48 Pat Name: MARIAN HEDRICK Department: Room: Gender: F Public Health Aide: [facility] : 1955 Requested By: Santiago Reyes Order Number: [id number] MD: Syd Hester Measurements Intervals [place] Rate: 88 P: 84 AL: 126 QRS: 84 QRSD: 77 T: 70 QT: 365 QTc: 442 Interpretive Statements Sinus rhythm Frequent premature ventricular complexes Compared to ECG 05/24/2021 23:34:01 Ventricular premature complex(es) now present Sinus tachycardia no longer present Electronically Signed On 07-14-2021 7:58:15 BRIDGE TEACHER by Syd Hester [email or web address] <ELECTRONICALLY SIGNED> By: Syd Hester MD, [facility] 07/14/21 0758 0741 0 Syd Hester MD, FACC /EPI
== END 2021-07-13 13:00 ==
LOC: ER 05:45
PROVIDERS: Emergency Medicine
DX: F10.20 Alcohol dependence, uncomplicated (principal); F32.9 Major depressive disorder, single episode, unspecified; R45.851 Suicidal ideations; F17.210 Nicotine dependence, cigarettes, uncomplicated; I10 Essential (primary) hypertension; J44.9 Chronic obstructive pulmonary disease, unspecified; Z98.890 Other specified postprocedural states; Y90.9 Presence of alcohol in blood, level not specified

== ENCOUNTER 2021-07-13 13:19 | Inpatient (IN) | payer OTHER ==
[~2021-07-13] VITALS: Ht 160 cm; Wt 41.6 kg
[2021-07-13 14:20] LABS: CHOLESTEROL 145 mg/dL (<200); HDL CHOLESTEROL 69 mg/dL (>40); LDL CHOLESTEROL 63 mg/dL (<100); TC:HDL 2.1 Ratio (Not establshd); TRIGLYCERIDE 68 mg/dL (<150); VLDL 14 mg/dL (<40)
[2021-07-13 14:26] VITALS: BP 161/99
--- NOTE | 2021-07-13 15:28 | NUR ---
66 YEAR OLD FEMALE ARRIVES TO FLOOR AT APPROX 1310 FROM ER VIA WC-IMMEDIATLY UPON ENTERING UNIT SHOUTING AT STAFF THAT SHE IS COLD,DEMANDING THAT THERMOSTAT BE ADJUSTED AND EXTRA BLANKETS OBTAINED-DID CALM SLIGHTLY AFTER EDUCATED ON ADMIT PROCESS AND GIVEN SUPPORT AND REASSURANCE FROM STAFF. MINIMALLY COOPERATIVE WITH ADMIT ASSESSMENT WOULD ANSWER 1 OR TWO QUESTIONS AND THEN ROLL OVER STATING "I'M TIRED I NEED TO REST-I DON'T NEED TO TELL YOU HOW MUCH I DRINK-YUN,TALK,TALK THAT IS ALL YOU DO-NOBODY HAS HELPED ME YET. DID DENY SUICIDAL IDEATIONTO THIS RN STATING "I FEEL THAT WAY SOMETIMES AND IT SCARES ME BUT IM NOT FEELING THAT WAY ANYMORE-IT NEVER LASTS LONG" IS ORIENTED TO PERSON,PLACE AND TIME. REFUSED TO ALLOW BS TO BE ASSESSED AND ALLOWED ONLY BRIEF INSPECTION OF ARMS AND LEGS/TORSO-NO OPEN AREAS SEEN-WEARING BRIEF-DENIES PAIN-GAIT IS SLOW AND STEADY WITH USE OF ROLLER WALKER- CIWA ASSESSMENT COMPLETED Q 1 HR X2 WITH NOTED SLIGHT INCREASE BP AT 160/84-HEART RATE 94. DENIES N/V-NO TREMOR/DIAPHORESIS NOTED OR REPORTED. PLACED ON HIGH FALLS PRECAUTIONS-WITH YELLOW BAND-SLIPPERS APPLIED-REFUSING TO CHANGE INTO YELLOW T-SHIRT AT THIS TIME STATING "LATER-I'M TOO COLD-STOP WAKING ME UP"
[2021-07-13 17:45] VITALS: BP 136/84
[2021-07-13 21:01] VITALS: BP 135/92
[2021-07-13 22:47] VITALS: BP 137/91
[2021-07-13 23:06] LABS: GLYCOHEMOGLOBIN (HGB A1C) 4.9 % (4.8-5.6)
[2021-07-14 03:15] VITALS: BP 131/91
--- NOTE | 2021-07-14 04:55 | NUR ---
07/13/21 @ 1900 ASSUMED CARE, CIWA PROTOCOL AT 4 HOUR VS WNL AND NO SYMPTOMS OF WITHDRAW NOTED. SLEPPING WELL AT THIS WRITING. DENIES SI/HI, HALLUCINATIONS, (A&V) HRRR, LUNG SOUNDS CTA BILAT, ABD N X4Q. WILL CONTINUE TO MONITOR FOR COMFORT AND SAFETY. BED IN LOW POSITION, BED ALARM SET.
[2021-07-14 07:15] VITALS: BP 118/90
--- NOTE | 2021-07-14 10:22 | NUR ---
07-13-2021--1529--Went to see patient in her room this date. Gathered information for the completion of a psychosocial assessment. Patient stated she had court tomorrow at 2:30. She didn't know where it was and couldn't remember if she had left the paper in security or upstairs with her belongings. Joanna (RN) looked through he belongings and found the paper. I told the patient she needed to call them to explain she was in the hospital and would not be able to be there. She stated "I can't. I don't know how". I advised her she needed to learn how and I would not be making the call for her. The RN got the phone and patient dialed the number with our assistance reading her the numbers. She kept sitting on the bed stating "I can't do this. I'm going to faint". I advised her she would be fine and that she could lay back on the bed and wait for them to come on the line. She did have some difficulty relaying the needeed information to them and I heard the person tell her she already had two warrants out for her assrest and to re-schedule the court date we would need to go on line. Patient told me she didn't know how. I told her she could learn tomorrow. Patient was not happy with me when I left the room. I had told her she needed to take a shower as she smelled of excrements. She refused the shower when the RN offered. I will attempt to get her on line tomorrow to change the date herself.
[2021-07-14 12:30] VITALS: BP 123/74
--- NOTE | 2021-07-14 13:03 | NUR ---
Alert and orientated this AM, refusing to answer some questions. Wants milk and can't understand why she can't have milk in her room. Denies SI/HI. Breath sounds clear. Reg HR auscultated. Color pale pink with brisk capillary refill and palpable peripheral pulses. Clear yellow urine per commode. Active bowel sounds over soft, flat abdomen. Ambulates with walker with slow, steady gait. Pt requesting to speak with SW this AM, msg given. Would also like to speak with Dr. Callejas today--will give msg. Currently in day room in group.
--- NOTE | 2021-07-14 15:09 | NUR ---
07-14-2021--0230--Patient requested assistance in finding her debit card during SW group. Patient was asked by this worker to check her list of items in security that was on the yellow paper. She started to argue and asked "what are you going to do about the card". I re-explained that she needed to check in her room first and on the list. She asked to see me at 3:00 and I told her 3 would be fine. She came to my office at 2:30 and stated she had found the number for Poornima. (She hadn't looked at the item list yet.) i inquired who Poornima was and she told me she was her older adult social work specialist. I asked where she was from and she said she "didn't know". I called the numbe she had for Poornima who answered her phone promptly. (Patient stated she never answered her phone and I would have to leave her a message.) Poornima stated she was not her or a older adult social work specialist. She was her payee. Patient told her she couldn't find her debit card. She asked if she could send the money/check to her or get her a new card. Patient said "How am I supposed to howard the check. I don't have an ID". Patient then asked if she could send the money to a friend of hers. She was promptly told "no" by Poornima. Poornima told her she needed to look at her home which is where she found it the last time. She reminded her it takes a couple of weeks to get a new card and if she found the old one in the meantime it would be no good. I interrupted the conversation at this point and asked who Poornima was and she stated she was the patient's Payee. She pays her bills and handles her money. She told the patient she was supposed to have gone to [facility] to get a rn case mgr to her her get an ID amoung other things (case management, therapist and a psychiatrist) and she hadn't followed through. She stated she was supposed to go to [facility] and hadn't followed through. I told Poornima patient told me yesterday that she went to treatment for only one week and then they told her it was too full and she couldn't complete treatment. Poornima stated that wasn't true they asked her to leave because she was uncooperative. When [facility] was mentioned patient stated "I don't want to go there to live". I asked Poornima for the transplant case manager name at [facility] and she said she didn't have one there anymore. They closed her case when she moved to her current address. The transplant case manager name at [facility] was Haley Soares ([phone]). Call attempted. She wasn't in. I left her a message on her phone to call me back. At this point the patient began to yell at me asking what I was going to do about her missing debit card as the edoctor told her she could discharge tomorrow. I advised her I hadn't heard this from him and she began to yell at me "You just don't want me to discharge". "You aren't helping me". The Rec Therapist came to my room and told the patient she was not beoing respectful. I followed them down the jonas to her room where she started yelling at staff in her room changing her bed. I told her she could not talk to staff that way and she attempted to push past me through the door. I explained she would get more help if she juan a talk to staff respectfully. I asked her to calm down before she went into the dayroom for group. Worker will talk to Dr. Callejas about patient and her behaviors.
--- NOTE | 2021-07-14 15:32 | NUR ---
07-14-2021--1500--Patient came to my office suzanneong to know where her paper was with Poornima's name and number on it. I told her I didn't have it. She stated she didn't have it. I suggested she go look for it as she took it with her. She got angry again about me not "meeting her needs" for producing the piece of paper she lost. She stormed off.
[2021-07-14 17:00] VITALS: BP 144/97
[2021-07-14 19:35] VITALS: BP 136/95
[2021-07-14 21:41] VITALS: BP 136/95
--- NOTE | 2021-07-14 23:16 | NUR ---
PATIENT CARE WAS RESUMED AT 1900.SHE IS ALERT AND ORIENETD WITH SOME FORGETFULESS,AMBULATES WITH WALKER.ABLE TO VERBALISE HER NEEEDS AND CONCERNS. LUNGS ARE CLEAR, BS ACTIVE X 4 QUAD.ABD IS SOFT AND NONE TENDER. FALL PROTOCOL IN PLACE. BED IS LOW, LOCKED AND ALARMED. SHE DENIES PAINS/SI/AVH/HI.MODERATE ASSIT WITH CARE AND SHE IS ABLE TO VERBALIZE HER NEEDS.TOOK HER MEDS WHOLE. SHE IS CONTINIET OF BOWEL AND BLADDER. USES A CALL GUEVARA.
[2021-07-15 06:11] VITALS: BP 136/95
[2021-07-15 08:25] VITALS: BP 117/89
--- NOTE | 2021-07-15 08:33 | H ---
[facility] [place] [address] HISTORY AND PHYSICAL Name: MARIAN HEDRICK Room #: 519B-B ADM IN M.R.#: [id number] Admission: 07/13/21 Attend Phys: Jacinto Callejas DO Discharge: Date of : 55 Report #: [id number] THIS REPORT FOR: cc: NO FAMILY PHYSICIAN or PCP NO FAMILY PHYSICIAN or PCP Jacinto Callejas DO ~ DATE OF SERVICE: 07/13/2021 INPATIENT PSYCHIATRIC EVALUATION ATTENDING PSYCHIATRIST: Jacinto Callejas DO SQL BI DEVELOPER: Ncikolas Pacheco MD REASON FOR ADMISSION: Suicidal ideation. SOURCES OF INFORMATION: Emergency Room records here at [facility], interview with the patient, collateral from the chart. Of special note, the patient is well known to the Emergency Room and she has also had at least 1 previous geriatric psych admission on my service. CHIEF COMPLAINT: "Said I was suicidal, to get help." HISTORY OF PRESENT ILLNESS: This is a 66-year-old. I believe she is , but been single for a long time female. She lives in the [facility] which is in close proximity actually to [facility]. The patient was brought in this time through the Emergency Room, seen by Dr. Reyes this morning. She reported having depression, suicidal thoughts. She told the ER that she feels like jumping out of the window. She told Dr. Reyes that she lives alone, does not have much money and does not have much to live for. She reports recent alcohol abuse as well. Her BAL was 45 in the ER. She told Dr. Reyes in the ER that her life is a struggle and even getting food is a challenge for her. She also stated she was homeless, I am not sure that is true, "I have no family." All her family is . She does not have children. She does not have a job. She admits to drinking in the ER. She said it was one pint this morning. She told me she drank 1-2 pints of vodka in the last week. Her physical exam done in the ER was grossly normal. They did do an EKG in the ER and let me review that. It showed ventricular rate 88, WI interval 126 milliseconds, QT interval 365 milliseconds, QTc 442 milliseconds. She had ventricular trigeminy and was in sinus rhythm. PAST MEDICAL HISTORY: Includes hepatitis, unclear if it is alcoholic or viral hepatitis, severe osteoarthritis of the hips, history of UTI, history of sepsis, history of hypertension. Of note, on review, it looks like a previous psych [facility] [address] [place] [address] HISTORY AND PHYSICAL Name: MARIAN HEDRICK Room #: 519B-B ADM IN M.R.#: [id number] Admission: 07/13/21 Attend Phys: Jacinto Callejas, DO Discharge: Date of : 55 Report #: [id number] admission was 03/25/2021. She had a chest tube insertion in 09/2010, ankle fracture in 2011. Interestingly, her 03/2021 admission was for suicidal ideation and her BAL at that time was negative. PSYCHIATRIC HISTORY: Chronic substance use disorder for alcoholism, severe degree; anxiety, depression, tobacco use disorder, she has had delirium in the past. SURGICAL HISTORY: Left femur fracture, cataract surgery, also chronic T-spine compression fracture. I am not clear whether she has had any kind of kyphoplasty or such procedures to her spine. ALLERGIES: HYDROCODONE. SOCIAL HISTORY: Smoking was 1 pack per day. Alcohol use daily. Denies recreational drug use. The ER recorded psychiatric symptoms for anxiety, depression, suicidal ideation. Denied auditory or visual hallucinations. REVIEW OF SYSTEMS: They did a 10-point review of systems and was negative essentially other than her psychiatric complaint. Weight 37.65 kg. BMI 16.2. She is definitely malnourished. FAMILY HISTORY: She had breast cancer in a sister, lung cancer in a sister and maternal uncle, hypertension in her father, coronary artery disease in her father and stroke for family history. LEGAL HISTORY: She is facing a court summons for citation for false public alarm in [place], [place]. This is similar to last admission where I could even recall speaking to her assistant county attorney in criminal defense. LABORATORY DATA: Laboratories in the ER, white count, she is leukopenic 2.6, H and H 10.1 and 31.1, platelet count 251, segmented neutrophil percentage was low at 32.0, monocyte percentage high at 24.0, basophil percentage high at 6.0, ANC low at 0.9. No coags done today. Chemistries: Sodium 141, potassium 4.0, chloride 106, bicarbonate 24, BUN 8, creatinine 0.5, estimated GFR 123. No A1c was done today. Total bilirubin 0.1, direct bilirubin less than 0.1, AST 21, ALT 9, alk phos 119. Lipids today, triglycerides 68, cholesterol 145, HDL 69. Urinalysis today was negative. Toxicology done today was negative except for a blood alcohol level at 45 mcg/dL early this morning about 6:00 a.m. COVID-19 serology is negative. No imaging done today. PHYSICAL EXAMINATION: VITAL SIGNS: Today, temperature 37.1, pulse 76, respirations 12, BP 136/84, O2 sat 96%. [facility] [place] [address] HISTORY AND PHYSICAL Name: MARIAN HEDRICK Room #: 519B-B ADM IN M.R.#: [id number] Admission: 07/13/21 Attend Phys: Jacinto Callejas DO Discharge: Date of : 55 Report #: [id number] MUSCULOSKELETAL: Frail, ill, malnourished appearing female, wearing glasses, in hospital gown, disheveled. MENTAL STATUS EXAMINATION: Well-developed, ill-appearing female, appearing at least stated age. Attention fair. Concentration fair to limited. Speech normal rate, volume, and tone. Thought process, linear and goal directed. Thought content focused on feeling better, "getting help." Denied suicidal or homicidal ideation, auditory, visual, or tactile hallucinations, helplessness, hopelessness. Mood and affect were relatively euthymic and congruent with her stated mood of feeling depressed, suicidal. Memory not formally tested. Insight and judgment impaired. Fund of knowledge no greater than average. FORMULATION: A 66-year-old female presenting via EMS for suicidal ideation. The patient has a long history of alcoholism, failure to pursue or maintain sobriety, failure with aftercare. DIAGNOSES: Unspecified depression- rapidly resolving, substance use disorder for alcohol, severe degree, cannot exclude neurocognitive disorder at this time. Additional morbidities per the hospitalist are as follows: Chronic hepatitis, chronic obstructive pulmonary disease, chronic low back pain, hypertension, history of seizures. PLAN: The patient is admitted voluntarily to [facility] in [facility]. Evaluate, stabilize. Dr. Pacheco was consulted. The patient has been started on the CIWA protocol for alcohol withdrawal. We will continue this for at least 24 hours. Regarding the patient's medication, she states she does not take any medication, so I just ordered the house PRNs but added on multivitamin and thiamine given her alcohol withdrawal. Once we are passed alcohol withdrawal, we can consider other psychotropic medications; however, given her living situation and poor compliance, this may not be advisable. Time spent on this case is at least 45 minutes, greater than 50% of time was review of records and coordination of care. STRENGTHS: She is insured. WEAKNESSES: Almost no social support, chronic alcoholism. <ELECTRONICALLY SIGNED> By: Jacinto Callejas DO 07/15/21 0833 [id number] Jacinto Callejas DO /nt
[2021-07-15 10:11] VITALS: BP 117/89
--- NOTE | 2021-07-15 10:52 | NUR ---
07-15-2021--1045--Call to Adrianne Ramirez ([phone]) to determine if she is still the DPOA and she stated she is. The other name was Bunny Gonzalez ([phone]) and Adrianne states he is also a DPOA and was the attorney recruiter who rene up the paperwork. I called Bunny and he stated he would also be available at 12:30 to be conferenced oin with the call to Adrianne.
--- NOTE | 2021-07-15 11:02 | NUR ---
07-15-2021--0945--Attended team meeting for patient this date. MD and RN present also.
--- NOTE | 2021-07-15 11:47 | NUR ---
RESUMMED CARE FROM OVERNIGHT SHIFT THIS AM, PATIENT IN DAY ROOM TALKING WITH ANOTHER PATIENT. PATIENT ALERT ORIENTED TIMES 4 PATIENT HAS ANXIETY WHICH SHE STATES IS A 10. PATIENT STATES HER DEPRESSION IS A 10 PATIENT IS NEEDY AND SOMETIMES ACTS LIKE SHE IS HELPLESS. PATIENT REFUSED TO PARTICIPATE IN GROUP SO DR GAR PUT HER ON ROOM LOCKOUT FOR MEALS AND GROUPS. PATIENT DENIES SI/HI/AH/VH AT PRESENT. PATIENT HAS SOME CONFUSION AND AT TIMES NEED REDIRECTIOM TO STAY ON TASKS. PATIENTS ABDOMEN FLAT BOWEL SOUNDS PRESENT, PATIENTS LUNGS CLEAR. WILL CONTINUE TO MONITOR PATIENT FOR SAFETY AND BEHAVIORS.
--- NOTE | 2021-07-15 13:45 | NUR ---
07-15-2021--1400--Called and talked to the two people listed as patient's DPOA's. Mr. Adkins is an insurance defense attorney and stated in 2019 patient rescinded the DPOA paperwork with them on it. Bunny however, said at this time if she wanted him to be he would be willing to be her DPOA. Went to talk to patient and administered the SLUMS (dementia exam) to patient. She scored 26/30. While we were talking afterwards about what this test showed and what her next trip to the ER could be like if she didn't have a DPOA she said she wanted one. She thought of Adrianne first but then stated she doesn't live here. She then asked about Bunny Adkins so we called him together. Bunny agreed to be her DPOA. The [place] is coming up at 3:00 to notarize the DPOA paperwork. Patient is concerned about not havng any money because she has misplaced her debit card. I asked her about going to a community mental health center. She said she would but she didn't have a car and couldn't afford public transportation. She said she would like to find a place where they had he services there or at least transportation so she can get where she needs to go. I educated her about her drinking and that the next time she comes in she may not be as kobe and be able to make decisions or good decisions for herself. She would be interested in AL or something similar. E-mailed [facility] and made a referral to Rachel and asked her foirst oif she could check to see if patient already has Medicaid and if not can she fill out the paperwork with her. I haven't heard back from [facility]. When I find out the status of her Medicaid patient and OI will start making referrals to NH or AL's.
--- NOTE | 2021-07-15 15:16 | NUR ---
07-15-2021--1520--Cheyenne Patelbert from [facility] came to have patient sign releases so she can start the paperwork for Medicaid. Patient reports she gets 1400.00 a month from [facility]. Provided patient with a book to keep her information in. (Poornima from phone call made yesterday--phone number [phone]) Poornima is her payee. Patient doesn't know Poornima's last name.
[2021-07-15 19:35] VITALS: BP 113/74
[2021-07-15 19:50] VITALS: BP 113/74
--- NOTE | 2021-07-16 02:36 | NUR ---
PATIENT CARE WAS RESUMED AT 1900. SHE IS ALERT AND ORIENTED TO TIME AND PLACE. AMBULATES WITH WALKER. ABLE TO VERABALIZE HER NEEDS. SHE IS CONTININET OF BOWEL AND BLADDER. TOOK HER MEDS WHOLE. SHE DENIES PAINS ,SI/AVH/HI. SHE IS ON FALL PRECAUTION YELLOW TOP AND SOCKS ARE ON. SHE IS IN BED AND SLEEPING . CONTINUE CARE
[2021-07-16 07:15] VITALS: BP 119/88
--- NOTE | 2021-07-16 15:47 | NUR ---
07-16-2021--3724--Discussed with patient her options. She has Medicaid pending. Will discuss case tomorrow in tx team.
--- NOTE | 2021-07-16 16:00 | NUR ---
Alert and orientated X4. Calm and cooperative. Denies SI/HI. Gagged up clear phlegm after meds. Became irritable but then settled down. Ambulating with regular gait with walker. Breath sounds clear. Reg HR auscultated. Color pale pink with brisk capillary refill and palpable peripheral pulses. Independent with voiding. Active bowel sounds over soft, flat abdomen. Refused to go to group in the afternoon. Currently in room without s/o distress.
[2021-07-16 18:41] VITALS: BP 112/74
[2021-07-16 19:35] VITALS: BP 112/74
--- NOTE | 2021-07-17 02:22 | NUR ---
PATIENT CARE WAS RESUMED AT 1900. SHE IS ALERT AND ORIENTED. ABLE O VERBALIZE HER CONCERN. SHE AMBULATES WITH WALKER. TOOK HER MED WHOLE. LUNGS ARE CLEAR BS ACTIVE X4 QUAD.SHE IS CONTIENET OF BOWEL AND BLADDER. DENIES PAINS,AVH/SI/HI. SHE IS ON FALL PRECAUTION, YELLOW SOCKS AND TOP ON. BED IS LOW, LOCKED AND ALARMED.MODERATE ASSIST WITH ADLS. CONTINUE CARE
[2021-07-17 10:37] VITALS: BP 114/78
--- NOTE | 2021-07-17 12:42 | NUR ---
07-17-2021--3065--Patient came to my office at approx 0800 to talk about her discharge. The Director of the Unit was her social services analyst one other time she was here. Staff reports ciarra bonilla discharge plans. A facility planner Issac Gautam (community support with fire department) also called this AM and stated that he had a meeting with someone from [facility] where patient was supposed to go after last stay. Issac reports patient has called 911 46 toimes in the last year and her reasons for going to court are because she keeps calling 911. The rec therapist stated in group yesterday patient's were asked what they did when they needed help and she replied I call 911. From my encounters with patient she does know that is not appropriate unless there is an emergency. Patient also has requested someone give her a haircut. She states hers got all chopped up because she tried to cut it herself last time she was drunk. I haven't found anyone of the staff who can cut her hair. Patient has come up with a couple of alternatives to going straight to [facility] or to a LTC placement (ex. I want to go home for one day and then go.) Doctor has talked to her about this and I told him if she is good enough to go one day home there is no reason for a NH. I will talk to patient later this date after I read past notes (as requested by my Director).
--- NOTE | 2021-07-17 14:14 | NUR ---
07-17-2021--1415--Reviewed notes from patient's past stay at [facility]. Patient has a long drinking history and a long history of agreeing to do something to make others leave her alone (as in going to a tx program in another state walking up to the front door and turning around and leaving and coming back to .) Call has been attempted to Haley Soares from [facility] [phone]. Patient was court ordered to this program and went for one week. She stated after one week they "kicked me out because they were too full". I talked to Poornima Morrissey who is her payee who stated she got kicked out because she wasn't cooperating. Call will be made to Issac Gautam when Dr. Rodriguez returns to my office.
[2021-07-17 14:47] VITALS: BP 114/78
--- NOTE | 2021-07-17 18:37 | NUR ---
Assumed care from overnight shift this am. Client was in activity area sitting and watching tv this morning. Client was fussy and irritable today, and was argumentative with staff, stating that she was going to go home with or without provider orders. Client presented oriented 3x, but did not know month, and stated that she did not care. Client voiced tooth pain and was given tylenol prn for pain which provided complete relief. Client denied any depression and anxiety. Client denied any visual or audio hallucinations at this time. Client denied any suicidal or homicidal intent. Client lung sounds were clear and diminished. Bowel sounds present with last BM 07/16 per report. Client has been redirected several times on this shift to not touch staff items, tv remote, or reach into cabinents without consent. Client has also been redirected to not yell at staff and peers as client has become verbally aggressive at times, and needs redirection. Client has needed reminders frequently, and will argue with staff and providers. Client has been redirected using therapeutic communication and by providing her with coping skills. Client is currently staying the weekend as opposed to leaving today due to behavior and psych concerns. No further concerns at this time.
[2021-07-17 19:12] VITALS: BP 94/59
[2021-07-17 21:49] VITALS: BP 122/77
--- NOTE | 2021-07-18 04:23 | NUR ---
Yessi was alert and oriented x4 this shift. She presented as anxious but cooperative and pleasant. She was noted in the dayroom watching TV at the start of the shift but quickly appeared tired and brought herself to bed. She was medication compliant, taking pills whole without difficulty. She denied SI/HI/STEWART and voiced some anxiety regarding her D/C plans and trying to decide what she wants to do. She laid down but at 2200 pt came out stating she was having racing thoughts and could not sleep. She was going to try and distract herself by watching TV but due to the unit rules of the TV being turned off at 2200 pt was unable to do so. HEAD MACHINIST Anselmo was paged and one time dose of trazodone 25 mg received and given per OCT. Pt still appeared to be awake an hour later, but shortly after appeared to be sleeping and continues to be asleep at this time. Her initial BP at the start of the shift was 94/59 but this RN retook her BP and it was 122/77. Pt denied pain and other physical complaints this shift, will continue to monitor.
[2021-07-18 09:47] VITALS: BP 100/71
--- NOTE | 2021-07-18 11:11 | NUR ---
Alert and orientated X4. Calm and cooperative but irritable at times. Wants to talk with physician about anxiety medication which she rates as 7/10. Resistant to coming out for group stating that she didn't feel well and then that she had tooth pain. Tylenot given for pain with good results. Demanding shower during group but when offered shower after group she stated that she only wanted to take a nap and be woken up for lunch. Breath sounds clear. Reg HR auscutated. Color pink with brisk capillary refill and palpable peripheral pulses. Independent with voiding. States she had BM yesterday. Active bowel sounds over soft, rounded abdomen. Ambulates with steady gait with walker.
[2021-07-18 19:16] VITALS: BP 113/66
--- NOTE | 2021-07-18 19:33 | NUR ---
07/18/21 @ 1900 ASSUMED CARE AND PATIENT AT THAT TIME IN BED AWAKE ALERT AND ORIENTED X3. REQUESTED SNACK IN BED, REORIENTED TO LOCATION AND TIME FOR SNACKS. VOICED UNDERSTANDING. DENIES HALLUCINATIONS (AH/VH) DENIES SI/HI, ENDORSES ANXIETY AND DEPRESSION, REPORTS NO COPING SKILLS OTHER THAN MEDICATION. HRRR, LUNGS CTA BILAT, ABD N X4Q. VSS. APPETITE GOOD. WILL CONTINUE TO MONTIOR FOR SAFETY AND COMFORT PER UNIT PROTOCOL.
[2021-07-19 10:19] VITALS: BP 101/56
[2021-07-19 13:02] VITALS: BP 101/56
[2021-07-19 19:40] VITALS: BP 106/70
[2021-07-19 20:03] VITALS: BP 106/70
--- NOTE | 2021-07-19 20:14 | NUR ---
Assumed pt care this morning from overnight shift. Pt was in room sitting on bed resting. Pt was AO x4, and presented with an anxious demeanor. Pt voiced wanting to stay in bed, and voiced that she wanted to relax as she felt tired at this time. Pt was encouraged to go to groups, and encouraged to come out for meals as she is on room lockout. Pt agreed to this. During assessment, pt voiced that she has persistant depression and anxiety. Pt voiced that she is feels like she is not ready to go home, and that she is not able to leave facility as she feels like she does not have an adequate support system. Pt stated that she was still looking for rehab facility to go to, and that she was interested in a 90 day program so that she could prevent further relapses for her alcohol problem. Pt encouraged to voice concerns to provider and social work in order to get connected to programs before discharge. Pt denied any suicidal or homicidal intention at this time. Pt also denied any visual or audio hallucinations. Pt voiced slight tooth pain 6/10 and was given prn tylenol that provided complete pain relief. Pt was hesitant about taking her medications, stating that she is not used to taking medications. Pt education provided to instruct pt about her medications and vitamins. Pt agreed to take medication after this, stating, "I know I need the medication from all my drinking." Pt has come out for meals during this shift. Pt has also stayed in activity area and watched tv at times in order to socialize. No further concerns at this time.
--- NOTE | 2021-07-19 22:43 | NUR ---
07/19/21 1900 seated in the day room cross leg on the couch. HRRR, Lungs clear but diminished, reports short of air with the exertion of ambulation, ABD Nx4Q over a round abdomen, reports BM today. Took meds whole with thin water. Asked for Tylenol 650mg for pain in the mouth that she rated @ 6/10. Patient showed a lump on her left groin that she reports just came up today. Retired to bed after taking medications and is sleeping at this writing.
[2021-07-20 09:04] VITALS: BP 115/70
[2021-07-20] MEDS ORDERED: NEURONTIN 300M300 M2 PO (09:35)
[2021-07-20] MEDS ORDERED: TRAZODONE HCL50 MG PO (09:36)
[2021-07-20 11:12] VITALS: BP 115/70
--- NOTE | 2021-07-20 11:54 | NUR ---
Patient care resummed, patient located in her room resting comfortably. Patient denies SI/HI/AVH, but states she has "constant" anxiety and depression and when asked if we have come up with some new coping skills, Pt. told PHOTOCOPY OPERATOR to "screw off, I don't need any." PHOTOCOPY OPERATOR attempted to reiforce teaching of positive emotional skills, and Pt. states "Just give me my dam medication." Patient VSS; Lung sounds clear although diminished; Abdomen soft,nondistended with bowel sounds present*4; Pt. informed PHOTOCOPY OPERATOR of a "Lump" to her Left groin area, inspection was completed and examined area during his rounds. Pt. denies having any pain, no apparent distress noted; Will attempt to provide a shower to Pt. before D/C although Pt. has refused all showers in the past. Will continue to monitor patient for safety and behaviors. D/C to be today around ruffly 1400 to home with Home Health Care. Transportion to be determined.
--- NOTE | 2021-07-20 13:52 | NUR ---
07-20-2021--6339--Went to talk to patient re; discharge. Gave a written paper with the phone numbers and words written in large letters she can see. The numbers were for the Bus, Taxi, Uber and how to make an appointment with [facility]. I wrote down the number for [facility] and wrote the instructions for getting into the hospital diversion program. I explained this should be the first number she calls to get a lining caser who will help her with the other services. She wanted to argue with me that it woldn't be 2:00 discharge if I didn't call until 2:00 PM. Patient stayed for group. Patient declined a bath before discharge. (Call returned by Terrell Tavera [phone] from hospital diversion program to provide me with information on the program and I wanted to give him a "heads up" on this patient as she has been here twice--once in March 2021 and the current admission.) I called Terrell back and left another message to call me. Call made to security to call a cab for resident's DC. Her medications were already up here and ready for the RN to give to her when she gets into the cab.
--- NOTE | 2021-07-21 08:25 | D ---
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 Additionally, COPD, stable on room air; hypertension, chronic hepatitis, chronic hypotension. The patient is discharging to her apartment at [facility] medical [facility] as best. Aftercare as follows: [facility] Divers[facility] program was contacted. She was sent home via taxi. [facility] is going to be her followup, also Issac Gautam from [place] [facility] community resource team was involved. The patient really needs dual diagnosis treatment. She is seeking attendant care, but does not have financial resources for that. DISCHARGE DIET: Regular. No alcohol, no illicit drugs. The patient is a nonsmoker. DISCHARGE MEDICATIONS: Gabapentin 300 mg oral 3 times a day for anxiety and prevent alcohol relapse, trazodone 25 mg oral at bedtime p.r.n. sleep, Rx #90 for gabapentin and trazodone # 30 prescriptions were given. LABORATORY DATA: This admission, hematology, H and H 10.1 and 31.1, white count 7.6, platelets 251, MCV is actually normal. Chemistry this admission, sodium 139, potassium 3.4, chloride 106, bicarbonate 24, anion gap 9, creatinine 0.5, estimated GFR 123, glucose 81. Estimated average glucose 94. A1c 4.9. Total bilirubin was 0.1, actually that is from 07/26. Direct bilirubin less than 0.1, ALT 9, alkaline phosphatase 119, albumin 2.5 indicates borderline severe malnutrition. TSH 3.373. Urinalysis was grossly negative. Toxicology this admission, BAL was 45. Other substances were negative. COVID-[address] [address] DISCHARGE SUMMARY Name: MARIAN HEDRICK Room #: 519B-B DIS IN M.R.#: [id number] Admission: 07/13/21 Attend Phys: Jacinto Callejas DO Discharge: 07/20/21 Date of : 55 Report #: [id number] admission not detected on , and . REASON FOR ADMISSION: Back on 07/13, a 66-year-old female who presented to [facility] Emergency room stating she was suicidal to get help. She lives at a nearby [facility] for sudden depression and suicidal thoughts. BAL was 45 in the ER, which is less than last week when she was initially admitted to. HOSPITAL COURSE: The patient was admitted to Geriatric Psychiatry Unit, and she was placed on the CIWA protocol. First couple of days of withdrawal period was uneventful. The patient became somewhat difficult about aftercare planning. The idea of substance abuse treatment also we [facility] was entertained. The patient demanded to go home first, which would defeat the purpose of the treatment program in sober living facility. We received contact from community resources treatment at [place] [facility]. She has had an extreme number of calls to 911. She has misuses/abuses that she is facing charges in [place], made false public alarm. She may have an active warrant for her. CONDITION AT DISCHARGE: Stable. Not suicidal or homicidal. PHYSICAL EXAMINATION: GENERAL: Wearing glasses, thin, malnourished appearing female apparently stated age. MENTAL STATUS EXAMINATION: Well-developed, somewhat ill-appearing female. Attention and concentration fair. Speech normal in rate. Thought process: Linear and goal oriented. Thought content focused on discharge/anxiety in anticipation of. Denied suicidal or homicidal ideation, auditory or visual type hallucinations. Mood and affect was very congruent and constricted. Memory not formally tested. Insight and judgment fairly limited. Fund of knowledge at least average. Prognosis for this patient is quite guarded given her history of noncompliance and revolving door effect. <ELECTRONICALLY SIGNED> By: Jacinto Callejas DO 07/21/21 0825 21 Jacinto Callejas DO /nt
== END 2021-07-20 14:02 | disposition home health service (06) | DRG 881 ==
LOC: SBH
PROVIDERS: ADMIT Psychiatry & Neurology Psychiatry; ATTEND Psychiatry & Neurology Psychiatry
DX: F32.9 Major depressive disorder, single episode, unspecified (principal); F10.239 Alcohol dependence with withdrawal, unspecified; J44.9 Chronic obstructive pulmonary disease, unspecified; K73.9 Chronic hepatitis, unspecified; M16.0 Bilateral primary osteoarthritis of hip; I10 Essential (primary) hypertension; F41.9 Anxiety disorder, unspecified; G89.29 Other chronic pain; M54.50 Low back pain, unspecified; Z60.2 Problems related to living alone; Z20.822 Contact with and (suspected) exposure to COVID-19; Z91.14 Patient's other noncompliance with medication regimen; Z98.49 Cataract extraction status, unspecified eye; Z88.6 Allergy status to analgesic agent; Z80.3 Family history of malignant neoplasm of breast; Z80.1 Family history of malignant neoplasm of trachea, bronchus and lung; Z82.49 Family history of ischemic heart disease and other diseases of the circulatory system; Z82.3 Family history of stroke
CPT/HCPCS: 10880

== ENCOUNTER 2021-07-22 09:42 | Emergency (ER) | payer OTHER ==
[~2021-07-22] VITALS: Ht 160 cm; Wt 39.9 kg
--- NOTE | ~2021-07-22 | EMS ---
[facility] [address] [place] [address] EMS Patient Care Report Name: MARIAN HEDRICK Room #: DEP EBONI Campo#: [id number] Admission: 07/22/21 Attend Phys: Discharge: 07/22/21 Date of : 55 Report #: [id number] THIS REPORT FOR: //name// Report Transmitted: 07/24/2021 14:11 EMS Care Summary [place], [place]/[facility] Incident [id number] @ 07/22/2021 09:23 Incident Location [address] [place] [address] [address] Patient MARIAN HEDRICK Female, 66 Years 1955 Patient Address [address] [place], [place] [id number] Patient History Alcohol Abuse, Patient Allergies No known allergies, Patient Medications Unknown, Chief Complaint doesn't feel that she can take care of herself Disposition Transported No Lights/[place] Dispatch Reason Sick Person Transported To [facility] Narrative M36 ARRIVED ON SCENE TO FIND OUR PT SITTING IN HER WALKER IN THE ROAD. THE PT STATED SHE DID NOT FEEL IF SHE WAS ABLE TO TAKE OF HER SELF ON HER OWN AND WANTED TO BE SEEN BY A PHYSICIAN TO BE POSSIBLY ADMITTED TO A SENIOR CARE. [facility] [address] [place] [address] EMS Patient Care Report Name: MARIAN HEDRICK Room #: DEP ER Jahaira#: [id number] Admission: 07/22/21 Attend Phys: Discharge: 07/22/21 Date of : 55 Report #: [id number] VITALS TAKEN. THE PT WAS ASSISTED TO THE STRETCHER WHERE SEAT BELTS AND A SURGICAL MASK WERE APPLIED. WHILE EN ROUTE THE PT WAS UNCHANGED. UPON ARRIVING AT THE HOSPITAL THE PT WAS ASSISTED TO THEIR TRIAGE AREA WITHOUT ANY ISSUES GETTING BACK INTO HER WALKER. THE NURSING STAFF STATED SHE HAD BEEN DISCHARGED FROM THEIR FACILITY TWO DAYS PRIOR WHERE THE PT WAS SET UP WITH A HOME HEALTH PROGRAM. REPORT WAS GIVEN TO RN. Initial Vitals @09:32P: 88,R: 18,BP: 106/58,Pain: 0/10,GCS: 15,SpO2: 97,Revised Trauma: 12, @09:35P: 99,R: 16,BP: 111/75,Pain: 0/10,GCS: 15,CO: 5,SpO2: 97,Revised Trauma: 12, Assessments @09:30MENTAL:Person Oriented,Event Oriented,Time Oriented,Place Oriented,SKIN:HEENT:Head/Face: No Abnormalities,Neck/Airway: No Abnormalities,LUNG SOUNDS:General: No Abnormalities,Left Upper: No Abnormalities,Right Upper: No Abnormalities,Left Lower: No Abnormalities,Right Lower: No Abnormalities,ABDOMEN:General: No Abnormalities,Left Upper: No Abnormalities,Right Upper: No Abnormalities,Left Lower: No Abnormalities,Right Lower: No Abnormalities,PELVIS//GI:EXTREMITIES:Capillary Refill: Right Upper: < 2 Sec,Left Arm: No Abnormalities,Right Arm: No Abnormalities,Left Leg: No Abnormalities,Right Leg: No Abnormalities,PULSE:Radial: 2+ Normal,NEURO:No Abnormalities, Impression Generalized Weakness Procedures @09:30 ALS AssessmentSucceeded @09:30 BLS Assessment Response: Unchanged Timeline 09:21,Call Received 09:21,Dispatch Notified 09:23,Dispatched 09:23,En Route 09:27,On Scene 09:30,At Patient 09:30,ALS Assessment,Succeeded, 09:30,BLS Assessment,Response: Unchanged 09:32,BP: 106/58 M,PULSE: 88,RR: 18 R,SPO2: 97 Ox,ETCO2: ,BG: ,PAIN: 0,GCS: 15, 09:34,Depart Scene 09:35,BP: 111/75 M,PULSE: 99,RR: 16 R,SPO2: 97 Ox,ETCO2: ,BG: ,PAIN: 0,GCS: 15, 09:38,At Destination 09:52,Call Closed [facility] [address] [place] [address] EMS Patient Care Report Name: MARIAN HEDRICK Room #: DEP ER Tru.#: [id number] Admission: 07/22/21 Attend Phys: Discharge: 07/22/21 Date of : 55 Report #: [id number] Disclaimer v1.1 Copyright 2020 [employer] This EMS Care Summary contains data elements from the applicable legal record (which may be displayed differently). It is designed to provide pertinent information for the following purposes: continuity of care, clinical quality, and state data reporting. The complete legal record is available to ED staff and administrators of the receiving hospital in [facility]'s Patient Tracker. All data is provided "as is."
[2021-07-22 10:01] VITALS: BP 117/65
== END 2021-07-22 10:17 | disposition left against medical advice (07) ==
LOC: ER 09:42
DX: R53.83 Other fatigue (principal); F41.9 Anxiety disorder, unspecified; F32.9 Major depressive disorder, single episode, unspecified; J44.9 Chronic obstructive pulmonary disease, unspecified; I10 Essential (primary) hypertension; B19.20 Unspecified viral hepatitis C without hepatic coma; Z53.21 Procedure and treatment not carried out due to patient leaving prior to being seen by health care provider; Z88.6 Allergy status to analgesic agent